=== PATIENT | male | born 1965 | race Asian ===

== ENCOUNTER 2019-04-01 08:19 | Inpatient (IN) | payer OTHER ==
[2019-04-01] VITALS (33 sets, daily range): BP systolic 81–111; BP diastolic 44–95
[~2019-04-01] VITALS: Ht 172.7 cm; Wt 73.2 kg
--- NOTE | 2019-04-01 08:20 | NUR ---
ED Nurse Note: pt was brought in by ambulance from [facility] c/o cp started 2-3 days ago but worse today. pt is aox4, aspirin was given on the scene. pt stated he is having chest pain but unable to stated which part of his chest is hurting and it is sharp and stated that he can eat because he has chest pain when he coughs. pt noted to have low bp, bp 82/61 upon arrival. pt has bajwa catheter to UB with cloudy urine output. pt has ongoing ivf with g 20 on the right forearm. pt seen by rosa. will continue to monitor.
[2019-04-01] MEDS ORDERED: MULTIVITAMINS1 EAC8 ORAL (08:30)
[2019-04-01] MEDS ORDERED: NEXIUM40 MG ORAL (08:30)
[2019-04-01] MEDS ORDERED: FOLIC ACID1 M1 PO (08:30)
--- NOTE | 2019-04-01 08:40 | NUR ---
NURSE NOTES:WOUND CARE NOTES:Pt presented on admission with multiple pressure injuries. Partially opened DTPI noted to sacrum (L)7cm x (W)7cm. Base of wound dark and indurated with small open wound at sacrococcygeal measuring (L)0.4 x(W)0.5cm x (D)0.3cm.wound is viable and moist with macerated edges with surrounding darkand indurated wound bed. Pt verbalized area is tender when palpated. DTPI noted to R lateral m,alleolus.Base of wound maroon with dark indurated borders (L)0.9cm x (W)0.6cm DTPI noted to lateral R heel. Base of wound is maroon with fluctuance. (L)1.2cm x (W)1.5cm. Dark brown discoloration without induration/erythema noted to distal/lateral R foot (L)3cm x (W)1.5cm. Non-tender when palpated. L heel callused but blanchable. Py also noted to have scattered hyperpigmented blotches on both lower ext. Tx.Plan: Cleanse Sacral area with Saline. Apply Hydrogel to coccygeal wound. Apply Moisture Barrier Paste periwound DTPI. Cover with Optifoam drsg. Change every 3 days and prn. Apply Cavilon Skin Barrier to R malleolus,Lateral R heel,Lateral/distal R foot. Cover each site with Optifoam drsgs. Change every 7 days and prn. APM/ADAM mattress overlay. Reposition at least every 2hours or as tolerated. Off-load heels with pillow.
[2019-04-01 08:52] LABS: APPEARANCE,URINE CLOUDY; BILIRUBIN, URINE NEGATIVE (NEGATIVE); GLUCOSE, URINE (UA) NEGATIVE (NEGATIVE); HEMATOCRIT 20.4 % (42.0-52.0); KETONES,URINE NEGATIVE (NEGATIVE); LEUKOCYTE ESTERASE ,URINE 3+ (NEGATIVE); MEAN CORPUSCULAR VOLUME 90 FL (80-99); NITRITE,URINE NEGATIVE (NEGATIVE); PH,URINE 7 (4.5-8.0); PLATELET COUNT 401 K/UL (150-450); PROTEIN,URINE 4+ (NEGATIVE); RED BLOOD COUNT 2.26 M/UL (4.70-6.10); UROBILINOGEN,URINE NORMAL MG/DL (0.0-1.0); WHITE BLOOD COUNT 15.9 K/UL (4.8-10.8)
[2019-04-01 08:55] LABS: HEMOGLOBIN 6.8 G/DL (14.2-18.0)
[2019-04-01 08:58] LABS: ANION GAP 15 mmol/L (5-15); BLOOD UREA NITROGEN 57 mg/dL (7-18); CALCIUM 7.7 MG/DL (8.5-10.1); CARBON DIOXIDE 17 MMOL/L (21-32); CHLORIDE 111 MMOL/L (98-107); CREATININE 3.1 MG/DL (0.55-1.30); POTASSIUM 4.2 MMOL/L (3.5-5.1); SODIUM 143 MMOL/L (136-145)
--- NOTE | 2019-04-01 09:00 | Emergency Room Report ---
History of Present Illness General Chief Complaint: Chest Pain Source: Patient, Medical Record, EMS Present Illness HPI Patient is sent in by paramedics from nursing facility with reports of chest pain Patient reports cough as well Patient has multiple comorbidities including significant previous CVA Renal disease anemia Patient complains of upper mid chest pain history is somewhat limited as patient is somewhat of a poor historian denies any vomiting or diarrhea Patient also presents with a Noriega catheter in place Unknown regarding fevers at the facility Allergies: Coded Allergies: No Known Allergies (Unverified , 04/01/19) Patient History Limited by: medical condition Past Medical History: see triage record Pertinent Family History: unable to obtain Reviewed Nursing Documentation: PMH: Agreed; PSxH: Agreed Nursing Documentation-PMH Hx Cardiac Problems: Yes - CEREBRAL INFARCTION Hx Hypertension: Yes Hx Diabetes: Yes - TYPE 2, HYPOMAGNESIA 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 Review of Systems All Other Systems: limited - Other than the ones mentioned in the history of present illness all others are reviewed however they do stay limited due to the patient's mental status Physical Exam Vital Signs Date Time Temp Pulse Resp B/P (MAP) Pulse Ox O2 Delivery O2 Flow Rate FiO2 04/01/19 08:13 98.6 68 20 82/61 (68) 93 Room Air Sp02 EP Interpretation: reviewed, normal General Appearance: mild distress - Appears agitated Head: normocephalic, atraumatic Eyes: bilateral eye PERRL, bilateral eye EOMI ENT: dry mucus membranes Neck: supple Respiratory: no accessory muscle use, other - Mildly tachypneic with crackles bilaterally Cardiovascular #1: regular rate, rhythm Gastrointestinal: non tender, soft Musculoskeletal: other - Chronic deficits sensory intact Neurologic: responsive - To physical stimuli, eyes open verbal Skin: no rash Lymphatic: no adenopathy Procedures Critical Care Time Critical Care Time 70 minutes for multiple re-evaluations, presentation of septic shock with concern for possible not including any procedural time Central Line Central Line : Consent: Emergent Central Line Lumen: triple Maximal Sterile Barrier Tech: yes cap, yes mask, yes sterile gown, yes sterile gloves, yes large sterile sheet, yes hand hygiene, yes chlorhexidine prep Central Line Postion: femoral (R) Anesthesia: Lidocaine cc's of anesthesia: 4 Complications: none Central Line Post Position: sutured Attempts: One Patient Tolerated: Well Complications: None Medical Decision Making Diagnostic Impression: Primary Impression: Septic shock Additional Impressions: CHF (congestive heart failure) Anemia ER Course Patient is a fairly complex patient with multiple differential to consideration including but not limited to cardiac cardiopulmonary and vascular emergencies Infectious pathology also entertained Patient complex case with evidence of some CHF finding however also severe sepsis and septic shock Also signs of significant anemia After initial fluid boluses patient required pressors And requires central line placement BiPAP has been placed and patient doing significantly better with this At this time patient does not require airway intubation however this is being monitored closely Patient initiated on broad-spectrum antibiotics Noriega catheter is also replaced and patient admitted to ICU for further intensive care Labs Test 04/01/19 08:20 04/01/19 08:39 White Blood Count 15.9 K/UL (4.8-10.8) Red Blood Count 2.26 M/UL (4.70-6.10) Hemoglobin 6.8 G/DL (14.2-18.0) Hematocrit 20.4 % (42.0-52.0) Mean Corpuscular Volume 90 FL (80-99) Mean Corpuscular Hemoglobin 30.3 PG (27.0-31.0) Mean Corpuscular Hemoglobin Concent 33.6 G/DL (32.0-36.0) Red Cell Distribution Width 12.0 % (11.6-14.8) Platelet Count 401 K/UL (150-450) Mean Platelet Volume 5.8 FL (6.5-10.1) Neutrophils (%) (Auto) % (45.0-75.0) Lymphocytes (%) (Auto) % (20.0-45.0) Monocytes (%) (Auto) % (1.0-10.0) Eosinophils (%) (Auto) % (0.0-3.0) Basophils (%) (Auto) % (0.0-2.0) Differential Total Cells Counted 100 Neutrophils % (Manual) 89 % (45-75) Lymphocytes % (Manual) 8 % (20-45) Monocytes % (Manual) 3 % (1-10) Eosinophils % (Manual) 0 % (0-3) Basophils % (Manual) 0 % (0-2) Band Neutrophils 0 % (0-8) Platelet Estimate Adequate Platelet Morphology Normal Schistocytes 1+ Urine Color Yellow Urine Appearance Cloudy Urine pH 7 (4.5-8.0) Urine Specific [place] 1.010 (1.005-1.035) Urine Protein 4+ (NEGATIVE) Urine Glucose (UA) Negative (NEGATIVE) Urine Ketones Negative (NEGATIVE) Urine Blood 1+ (NEGATIVE) Urine Nitrite Negative (NEGATIVE) Urine Bilirubin Negative (NEGATIVE) Urine Urobilinogen Normal MG/DL (0.0-1.0) Urine Leukocyte Esterase 3+ (NEGATIVE) Urine RBC 2-4 /HPF (0 - 0) Urine WBC Tntc /HPF (0 - 0) Urine Squamous Epithelial Cells Occasional /LPF Urine Bacteria Many /HPF (NONE) Sodium Level 143 MMOL/L (136-145) Potassium Level 4.2 MMOL/L (3.5-5.1) Chloride Level 111 MMOL/L (98-107) Carbon Dioxide Level 17 MMOL/L (21-32) Anion Gap 15 mmol/L (5-15) Blood Urea Nitrogen 57 mg/dL (7-18) Creatinine 3.1 MG/DL (0.55-1.30) Estimat Glomerular Filtration Rate 21.3 mL/min (>60) Glucose Level 98 MG/DL (74-106) Lactic Acid Level 1.40 mmol/L (0.4-2.0) Calcium Level 7.7 MG/DL (8.5-10.1) Total Bilirubin 0.4 MG/DL (0.2-1.0) Aspartate Amino Transf (AST/SGOT) 18 U/L (15-37) Alanine Aminotransferase (ALT/SGPT) 32 U/L (12-78) Alkaline Phosphatase 110 U/L (46-116) Total Creatine Kinase 96 U/L (26-308) Creatine Kinase MB 1.8 NG/ML (0.0-3.6) Creatine Kinase MB Relative Index 1.8 Troponin I 0.121 ng/mL (0.000-0.056) Pro-B-Type Natriuretic Peptide 13035 pg/mL (0-125) Total Protein 5.7 G/DL (6.4-8.2) Albumin 2.2 G/DL (3.4-5.0) Globulin 3.5 g/dL Albumin/Globulin Ratio 0.6 (1.0-2.7) Lipase 366 U/L (73-393) Arterial Blood pH 7.369 (7.350-7.450) Arterial Blood Partial Pressure CO2 25.3 mmHg (35.0-45.0) Arterial Blood Partial Pressure O2 103.7 mmHg (75.0-100.0) Arterial Blood HCO3 14.3 mmol/L (22.0-26.0) Arterial Blood Oxygen Saturation 96.4 % (95-100) Arterial Blood Base Excess -10.0 (-2-2) Kin Test Positive EKG Diagnostic Results Rate: normal Rhythm: NSR ST Segments: other - Nonspecific ST T wave changes Rhythm Strip Diag. Results EP Interpretation: yes Rate: 99 Rhythm: NSR, no PVC's, no ectopy Chest X-Ray Diagnostic Results Chest X-Ray Diagnostic Results : Chest X-Ray Ordered: Yes # of Views/Limited/Complete: 1 View Indication: Chest Pain EP Interpretation: Yes Interpretation: no consolidation, no pneumothorax, other - Sided effusion mild congestion Impression: Other - Left-sided effusion mild congestion Last Vital Signs Date Time Temp Pulse Resp B/P (MAP) Pulse Ox O2 Delivery O2 Flow Rate FiO2 04/01/19 08:13 98.6 68 20 82/61 (68) 93 Room Air Status: improved Disposition: ADMITTED INPATIENT Condition: Critical Referrals: Wilder Hunter MD (PCP) Quang Cruz DO Apr 01, 2019 09:00
[2019-04-01 09:01] LABS: COLOR,URINE YELLOW
--- NOTE | 2019-04-01 09:03 | NUR ---
ED Nurse Note: marine technician on bedside
[2019-04-01] MEDS ORDERED: ATORVASTATIN CA20 MG ORAL (09:08)
[2019-04-01] MEDS ORDERED: NORMODYNE100 MG ORAL (09:08)
[2019-04-01] MEDS ORDERED: ACIDOPHILUS1 EAC7 PO (09:08)
[2019-04-01] MEDS ORDERED: FERROUS SULFAT325 MG ORAL (09:08)
[2019-04-01] MEDS ORDERED: APRESOLINE10 MG ORAL (09:08)
[2019-04-01] MEDS ORDERED: ASPIR 8181 MG ORAL (09:08)
[2019-04-01] MEDS ORDERED: PROCARDIA XL30 MG ORAL (09:08)
[2019-04-01] MEDS ORDERED: HUMALOG100 UNIT/4 SUBQ (09:08)
[2019-04-01] MEDS ORDERED: VITAMIN C500 M1 ORAL (09:08)
[2019-04-01 09:15] LABS: ALANINE AMINOTRANSFERASE 32 U/L (12-78); ALBUMIN 2.2 G/DL (3.4-5.0); ALBUMIN/GLOBULIN RATIO 0.6 (1.0-2.7); ALKALINE PHOSPHATASE 110 U/L (46-116); ASPARTATE AMINO TRANSFERASE 18 U/L (15-37); BILIRUBIN,TOTAL 0.4 MG/DL (0.2-1.0); CKMB 1.8 NG/ML (0.0-3.6); CREATINE KINASE 96 U/L (26-308)
[2019-04-01] MEDS ORDERED: cefTRIAXone 1 GM in NS 55 ML IVPB ONE (09:30)
[2019-04-01] MEDS ORDERED: Vancomycin 1 GM in NS 275 ML IVPB ONE (09:30)
--- NOTE | 2019-04-01 09:35 | NUR ---
ED Nurse Note: respiratory therapist on bedside placing pt on bipap
--- NOTE | 2019-04-01 09:55 | NUR ---
ED Nurse Note: ermd no bedside doing a central line insertion on pt, central line placed on pt right femural vein. pt able to tolerate. will continue to monitor.
[2019-04-01] MEDS ORDERED: DOPamine 400mg/250ml 250 ML IV ONE (10:00)
--- NOTE | 2019-04-01 10:00 | NUR ---
ED Nurse Note: recieved a verbal order from ermd to titrate ivf from bolus to 300mL/hr and carried out
--- NOTE | 2019-04-01 10:27 | NUR ---
ED Nurse Note: dopamine connected to central line and started 2mcg/kg/hr with the rate of 5.27mL/hr pt bp is 82/56..
--- NOTE | 2019-04-01 10:42 | NUR ---
ED Nurse Note: pt bp is 79/48, dopamine titrated to 4mcg/kg/hr with rate of 10.54mL/hr
--- NOTE | 2019-04-01 10:57 | NUR ---
ED Nurse Note: pt bp 67/45, dopamine titrated to 6mcg/kg/hr, will continue to monitor.
--- NOTE | 2019-04-01 11:00 | NUR ---
ED Nurse Note: prbc picked up in the lab.
--- NOTE | 2019-04-01 11:05 | NUR ---
ED Nurse Note: blood transfusion started with vs within normal limit.
--- NOTE | 2019-04-01 11:12 | NUR ---
ED Nurse Note: pt bp is 78/51 dopamine titrated to 8mcg/kg/min with the rate of 21.09mL/hr. will continue to monitor.
--- NOTE | 2019-04-01 11:20 | NUR ---
ED Nurse Note: no blood transfusion reaction noted, blood transfusion titrated to 150mL/hour. pt vs within normal limit
--- NOTE | 2019-04-01 11:27 | NUR ---
ED Nurse Note: pt bp is 89/62, dopamine titrated to 10mcg/kg/hr with rate of 26.36mL/hr. will continue to monitor.
--- NOTE | 2019-04-01 11:31 | NUR ---
ED Nurse Note: with new order from ermd, lasix iv given as ordered
--- NOTE | 2019-04-01 11:42 | NUR ---
ED Nurse Note: pt bp is 82/46, dopamine titrated to 12mcg/kg/hr, will continue to monitor
--- NOTE | 2019-04-01 11:57 | NUR ---
ED Nurse Note: pt bp is 103/57. dopamine maintained to 12mcg/hr/kr.
--- NOTE | 2019-04-01 12:00 | NUR ---
ED Nurse Note: pt is admitted to the hospital. report given to Faith TEIXEIRA.
--- NOTE | 2019-04-01 12:18 | Diagnostic Imaging Report ---
Indication: Dyspnea Comparison: None A single view chest radiograph was obtained. Findings: There is evidence of a left pleural effusion with blunting of the costophrenic angle. There is a hazy opacity in the left perihilar region. Generalized vascular prominence noted. Heart is enlarged. Bones are osteopenic. IMPRESSION: Suspicion of a small left pleural effusion. Some evidence of mild CHF. Correlate clinically
--- NOTE | 2019-04-01 12:20 | NUR ---
NURSE NOTES: Received patient from LLUVIA Carrera. Patient blood pressure 86/44 on 12mcg/kg/min of dopamine. Increased to 14mcg/kg/min at this time. Patient on BiPAP 09/12 with 40% FiO2. Patient ABG abnormal in ER. Patient oxygen saturation 100% at this time. Patient denies chest pain at this time. Patient temperature 95.[address] bear hugger on the patient. Patient alert and oriented to person, place, time, and date. Patient drowsy and reports double vision, nausea, and heartburn. Will administer anti-nausea medication when possible. Patient has right femoral triple lumen catheter inserted in ER. Dressing to be changed tonight. Patient getting one PRBC at this time due to Hgb of 6.8 this morning. Will follow up with admitting physician for further blood transfusion orders. Patient is NPO at this time. Awaiting orders. Patient has a sacral small pressure ulcer, left high DTI, right heel/hallux/ankle DTIs. Patient also has small brown scars on bilateral lower extremities and abdomen. Patient has 4/5 strength in bilateral arms and legs but states that he cannot walk. Patient has a bajwa for retention from long term. When asked why he has the bajwa, he states that he wants to keep it. Order will be obtained to replace with new bajwa. patient bed in low position with bed alarm on.
--- NOTE | 2019-04-01 12:20 | NUR ---
ED Nurse Note: pt transfered to icu 246 J accompanied by rn, carpenter railcar and rt.
--- NOTE | 2019-04-01 13:16 | NUR ---
NURSE NOTES: Left message for Dr Hunter to obtain admission orders.
--- NOTE | 2019-04-01 14:30 | NUR ---
NURSE NOTES: Patient temperature still low at 95.6. Patient has bear hugger at this time. Patient vomiting up brown emesis with blood clots and coffee grounds. Patient reports nausea and heartburn. Will administer medication when possible. Patient on Dopamine 16mcg/kg/min with blood pressure 97/57. Patient bed changed at this time due to vomit on the sheets. patient repositioned. Patient given ice chips and small amount of water to rinse his mouth. Will continue to titrate dopamine drip and monitor blood pressure.
[2019-04-01] MEDS ORDERED: Heparin1,000 units/500ml Premix(Conc:2 units/ml) IV PRN (15:45)
[2019-04-01] MEDS ORDERED: Lidocaine 1% Plain 30 ml INJ PRN (15:45)
--- NOTE | 2019-04-01 16:30 | NUR ---
NURSE NOTES: Patient temperature still low at 96.0. Patient has bear hugger at this time. Patient still vomiting up brown emesis with blood clots and coffee grounds. Patient still reports nausea. Patient no longer on dopamine drip. Patient blood pressure 110/69. Patient has an order for Levophed but it will be held until patient has need of it. Patient bed changed at this time due to vomit on the sheets. patient repositioned. Patient given ice chips and small amount of water to rinse his mouth. Will continue to monitor blood pressure.
--- NOTE | 2019-04-01 18:30 | NUR ---
NURSE NOTES: second PRBC started. Blood pressure 97/47, temp 97.4, HR 74, oxygen saturation 100% on 2L NC. Patient still vomiting blood tinged emesis with blood clots.
--- NOTE | 2019-04-01 18:45 | NUR ---
NURSE NOTES: Patient's blood transfusion has reached 15 min. Blood pressure 100/54, temp 97.5, HR 73, and oxygen saturation 100%. Noriega changed and patient repositioned and cleaned at this time.
--- NOTE | 2019-04-01 19:08 | NUR ---
CASE MANAGEMENT: REVIEW SI: SEPSIS . RESP FAILURE . BILATERAL INFILTRATES . ARDS FLEXIBLE FIBEROPTIC BRONCHOSCOPY AND BRONCHOALVEOLAR LAVAGE 03/29 T 97.0 HR 70 RR 24 BP 89/62 SAT 100% BIPAP FIO2 40 WBC 15.9 H/H 6.8/20.4 TROPONIN I 0.121 BNP 18728 IS: LEVOPHED GTT NS IVF @100ML/HR ZOSYN IV Q8HR ICU STATUS DCP: PATIENT IS FROM [facility] Addendum: 04/03/19 at 1707 by Meghana Goode LVN MET INTERQUAL CRITERIA
--- NOTE | 2019-04-01 19:20 | NUR ---
HAND-OFF: Report given to LLUVIA Canela. Patient continues to vomit brown emesis with coffee grounds and blood clots. Patient has zofrderek BOOTHEN. Endorsed to follow up. Patient blood transfusion running at 150mL/hr at this time. Patient tolerating with no evidence of transfusion reaction. patient has an order for another unit. Endorsed to follow up.
[2019-04-01] MEDS: Piperacillin/Tazobactam 3.375 GM in NS 110 ML IVPB SCH (20:00)
[2019-04-01] MEDS: Dyna-Hex 2% Top Sol 2oz TOPIC SCH (20:00)
[2019-04-01] MEDS ORDERED: Dyna-Hex 2% Top Sol 2oz TOPIC SCH (20:00)
--- NOTE | 2019-04-01 20:00 | NUR ---
5NURSE NOTES: ptAWAKE AND ALERT ORIENTED MOVE ALL EXTRIMETIES C/O N/V SUCTION AND REPOSITION
[2019-04-01] MEDS ORDERED: Albuterol ud Inhalation HHN PRN ×2 (21:15→21:30)
--- NOTE | 2019-04-01 22:00 | NUR ---
NURSE NOTES: SLEEPIING AT INTREVAL IV INFUSING WELL DRESING DRY AND INTACT
--- NOTE | 2019-04-01 22:15 | History and Physical Report ---
DATE OF ADMISSION: 04/01/2019 REASON FOR ADMISSION: Sepsis. HISTORY OF PRESENT ILLNESS: This is a 53-year-old male brought in by paramedics due to chest pain. The patient was noted to be hypotensive and requiring pressors. The patient is seen and evaluated in the emergency room, noted to have leukocytosis and profound anemia. The patient is now admitted to the intensive care unit. The patient is seen earlier today and noted to have some proteinuria, blood in the urine, and ojg-bpmgzjfg-vi-count white cells. The patient also with elevated BUN, creatinine. The patient's care discussed and reviewed. The patient is unable to give much in the way of history at this time. 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 MEDICATIONS: Reviewed. PHYSICAL EXAMINATION: GENERAL: The patient is an ill-appearing male, currently hypotensive. VITAL SIGNS: Blood pressure 103/57, temperature 97, heart rate 70, and respiratory rate 24. The patient is placed on BiPAP, but now stable off. HEENT: Negative. NECK: Supple. No adenopathy. LUNGS: Moderate breath sounds. CARDIAC: S1, S2. Regular rate and rhythm. ABDOMEN: Soft. EXTREMITIES: No edema. LABORATORY DATA: Reviewed. Hemoglobin 6.8 and white count 13.9. Blood gases, 7.36, 25, 103. Bicarbonate is 14. Sodium 143, BUN 57, and creatinine 3.1. Troponin 0.121. Albumin is 2.2. IMPRESSION: 1. Acute on chronic renal failure. 2. Hypotension. 3. Septic shock. 4. Chest pain. 5. Elevated troponin. 6. Profound anemia. 7. Possible gastrointestinal bleed. 8. History of hypertension, now hypotensive. RECOMMENDATIONS: 1. Supportive care. 2. Hold all antihypertensives. 3. Levophed as needed. 4. Transfuse. 5. Intravenous antibiotics empirically. 6. ID, cardiology and Renal evaluation to follow. 7. Monitor clinically in the intensive care unit and update family members. Wilder Hunter M.D. DR: MICHELLE JOB#: [id number] CC:
[2019-04-02] VITALS (24 sets, daily range): BP systolic 99–187; BP diastolic 42–90
--- NOTE | 2019-04-02 | NUR ---
NURSE NOTES: COMPLETE BED ORAL CARE AND BACK CARE
--- NOTE | 2019-04-02 | NUR ---
NURSE NOTES: COMPLETE BED BATH ORAL CARE BACK CARE
--- NOTE | 2019-04-02 02:00 | NUR ---
NURSE NOTES: TOLERAT ASLEEP HAD TOTAL 3 UNIT PRBC TRANFUSE TOLERATED WELL NO REACTION
--- NOTE | 2019-04-02 02:00 | NUR ---
NURSE NOTES: DR FAUST IN SEEN PT
[2019-04-02] MEDS: Piperacillin/Tazobactam 3.375 GM in NS 110 ML IVPB SCH ×2 (03:40→16:44)
[2019-04-02 05:40] LABS: HEMATOCRIT 31.1 % (42.0-52.0); HEMOGLOBIN 10.5 G/DL (14.2-18.0); MEAN CORPUSCULAR VOLUME 89 FL (80-99); PLATELET COUNT 424 K/UL (150-450); RED CELL DISTRIBUTION WIDTH 12.8 % (11.6-14.8)
[2019-04-02 05:59] LABS: ANION GAP 19 mmol/L (5-15); BLOOD UREA NITROGEN 73 mg/dL (7-18); CALCIUM 8.2 MG/DL (8.5-10.1); CARBON DIOXIDE 15 MMOL/L (21-32); CHLORIDE 118 MMOL/L (98-107); CREATININE 3.3 MG/DL (0.55-1.30); POTASSIUM 4.2 MMOL/L (3.5-5.1); SODIUM 152 MMOL/L (136-145)
--- NOTE | 2019-04-02 06:21 | NUR ---
NURSE NOTES: COMPLETE BED BATH
--- NOTE | 2019-04-02 07:32 | NUR ---
HAND-OFF: Report given to gale rd using sbar.
--- NOTE | 2019-04-02 07:32 | NUR ---
NURSE NOTES: Received report from LLUVIA palacio. patient sleeping. Patient arousable to name and shaking. Patient alert and oriented to place, time, date, and purpose. Patient still experiencing nausea and heartburn. Will administer nausea PRN medication as needed. Patient blood pressure 151/69, temp 98.4, SpO2 99%, HR 89, and RR 18. Patient dry heaving but is unable to produce bile. Patient on 2L NC with SpO2 of 99%. Patient has saturation of 90-93% without nasal cannula. Patient removes the nasal cannula when he is heaving. Patient is NPO at this time except medication and ice chips. Patient has a bajwa for urine retention. Bajwa was inserted prior to admission and replaced yesterday. Patient has steady urine output with straw yellow urine with no sediment. Patient has sacral small stage 3, left hip DTI, right lateral ankle, toe, and heel DTI. Patient has left femoral triple lumen catheter that is patent, asymptomatic, and dressing changed last night. Patient running NS at 100mL/hr at this time. Will follow up with antinausea medication. Patient bed in low position with bed alarm on.
--- NOTE | 2019-04-02 08:00 | General Progress Note ---
Assessment/Plan Assessment/Plan: GI CONSULT Assessment - UGIB (but stools brown, not melena) - N/V, Hiccups - suspect GERD - Anemia, s/p transfusion - CP, mild elevation in troponin - Azotemia Recommendation - Keep NPO until dry heaves resolves - BID PPI - PRN zofran - Monitor CBC - transfuse PRN - EGD once cleared from cardiology standpoint Thank you Arlet Rubio MD Subjective Allergies: Coded Allergies: No Known Allergies (Unverified , 04/01/19) Objective Last 24 Hour Vital Signs Date Time Temp Pulse Resp B/P (MAP) Pulse Ox O2 Delivery O2 Flow Rate FiO2 04/02/19 06:00 86 23 142/66 (91) 94 04/02/19 05:00 83 23 125/46 (72) 94 04/02/19 04:00 Nasal Cannula 2.0 04/02/19 04:00 2.0 04/02/19 04:00 87 04/02/19 04:00 98.6 83 23 99/54 (69) 94 04/02/19 03:00 85 23 119/54 (75) 94 04/02/19 02:00 83 23 123/85 (98) 94 04/02/19 01:00 75 18 105/59 (74) 94 04/02/19 00:00 2.0 04/02/19 00:00 87 04/02/19 00:00 98.5 79 16 99/42 (61) 94 04/02/19 00:00 Nasal Cannula 2.0 04/01/19 23:00 75 23 99/54 (69) 94 04/01/19 22:00 75 23 97/64 (75) 94 04/01/19 21:00 75 23 95/51 (66) 94 04/01/19 20:00 Nasal Cannula 2.0 04/01/19 20:00 2.0 04/01/19 20:00 98.8 71 23 104/52 (69) 94 04/01/19 19:58 96 Nasal Cannula 2.0 28 04/01/19 19:30 96 2.0 28 04/01/19 19:00 74 23 89/52 (64) 94 04/01/19 18:45 74 20 81/55 (64) 95 04/01/19 18:30 75 21 100/54 (69) 96 04/01/19 18:15 75 18 97/47 (64) 96 04/01/19 18:00 76 14 101/51 (68) 97 04/01/19 17:45 80 20 101/58 (72) 95 04/01/19 17:30 88 17 105/65 (78) 95 04/01/19 17:15 87 20 111/95 (100) 96 04/01/19 17:10 98 04/01/19 17:00 111/95 04/01/19 17:00 87 17 104/57 (73) 96 04/01/19 16:45 86 17 104/57 (73) 98 04/01/19 16:30 85 20 110/69 (83) 97 04/01/19 16:15 85 23 92/62 (72) 97 04/01/19 16:00 97.4 84 18 106/54 (71) 97 04/01/19 16:00 87 04/01/19 16:00 2.0 04/01/19 16:00 Nasal Cannula 2.0 04/01/19 15:57 Bi-pap 04/01/19 15:45 85 21 99/51 (67) 98 04/01/19 15:30 86 20 105/50 (68) 99 04/01/19 15:20 97 04/01/19 15:15 85 17 97/57 (70) 98 04/01/19 15:00 84 18 97/57 (70) 98 04/01/19 14:45 84 20 97/57 (70) 98 04/01/19 14:30 84 19 97/57 (70) 98 04/01/19 14:15 83 22 95/51 (66) 98 04/01/19 14:00 83 21 97/44 (61) 96 04/01/19 13:45 83 23 94/72 (79) 100 04/01/19 13:30 83 19 103/55 (71) 100 04/01/19 13:15 82 18 89/55 (66) 100 04/01/19 13:00 81 17 100 Facial 40 04/01/19 13:00 80 16 86/44 (58) 100 04/01/19 12:45 94.4 79 22 86/44 (58) 100 04/01/19 12:35 80 04/01/19 12:20 97.0 70 24 103/57 100 Bi-pap 15.0 40 04/01/19 11:36 97.0 70 24 89/62 100 Bi-pap 40 04/01/19 11:25 64 25 100 Facial 40 04/01/19 10:42 79/48 04/01/19 10:27 62 15 82/56 100 Bi-pap 40 04/01/19 10:27 82/56 04/01/19 09:35 40 04/01/19 09:35 57 17 97 Facial 40 04/01/19 08:20 68 20 Room Air 04/01/19 08:20 98.6 68 20 82/61 100 Non-Rebreather 15.0 04/01/19 08:13 98.6 68 20 82/61 (68) 93 Room Air Intake and Output 04/01/19 04/02/19 19:00 07:00 Intake Total 2055 ml 2310.0 ml Output Total 1585 ml 1065 ml Balance 470 ml 1245.0 ml Intake IV Total 1905 ml 1560.0 ml Blood Product 150 ml 750 ml Output Urine Total 1585 ml 515 ml Emesis 550 ml # Bowel Movements 4 2 Laboratory Tests 04/01/19 08:20: White Blood Count 15.9H, Red Blood Count 2.26L, Hemoglobin 6.8*L, Hematocrit 20.4L, Mean Corpuscular Volume 90, Mean Corpuscular Hemoglobin 30.3, Mean Corpuscular Hemoglobin Concent 33.6, Red Cell Distribution Width 12.0, Platelet Count 401, Mean Platelet Volume 5.8L, Neutrophils (%) (Auto) , Lymphocytes (%) ( Auto) , Monocytes (%) (Auto) , Eosinophils (%) (Auto) , Basophils (%) (Auto) , Differential Total Cells Counted 100, Neutrophils % (Manual) 89H, Lymphocytes % (Manual) 8L, Monocytes % (Manual) 3, Eosinophils % (Manual) 0, Basophils % ( Manual) 0, Band Neutrophils 0, Platelet Estimate Adequate, Platelet Morphology Normal, Schistocytes 1+, Urine Color Yellow, Urine Appearance Cloudy, Urine pH 7 , Urine Specific [place] 1.010, Urine Protein 4+H, Urine Glucose (UA) Negative, Urine Ketones Negative, Urine Blood 1+H, Urine Nitrite Negative, Urine Bilirubin Negative, Urine Urobilinogen Normal, Urine Leukocyte Esterase 3+H, Urine RBC 2-4H, Urine WBC TntcH, Urine Squamous Epithelial Cells Occasional, Urine Bacteria ManyH, Sodium Level 143, Potassium Level 4.2, Chloride Level 111H , Carbon Dioxide Level 17L, Anion Gap 15, Blood Urea Nitrogen 57H, Creatinine 3.1H, Estimat Glomerular Filtration Rate 21.3, Glucose Level 98, Lactic Acid Level 1.40, Calcium Level 7.7L, Total Bilirubin 0.4, Aspartate Amino Transf (AST /SGOT) 18, Alanine Aminotransferase (ALT/SGPT) 32, Alkaline Phosphatase 110, Total Creatine Kinase 96, Creatine Kinase MB 1.8, Creatine Kinase MB Relative Index 1.8, Troponin I 0.121H, Pro-B-Type Natriuretic Peptide 59055E, Total Protein 5.7L, Albumin 2.2L, Globulin 3.5, Albumin/Globulin Ratio 0.6L, Lipase 366 04/01/19 08:39: Arterial Blood pH 7.369, Arterial Blood Partial Pressure CO2 25.3L, Arterial Blood Partial Pressure O2 103.7H, Arterial Blood HCO3 14.3*L, Arterial Blood Oxygen Saturation 96.4, Arterial Blood Base Excess -10.0*L, Kin Test Positive 04/02/19 05:00: White Blood Count 19.0H, Red Blood Count 3.50L, Hemoglobin 10.5#L, Hematocrit 31.1#L, Mean Corpuscular Volume 89, Mean Corpuscular Hemoglobin 30.1, Mean Corpuscular Hemoglobin Concent 33.9, Red Cell Distribution Width 12.8, Platelet Count 424, Mean Platelet Volume 5.6L, Neutrophils (%) (Auto) , Lymphocytes (%) ( Auto) , Monocytes (%) (Auto) , Eosinophils (%) (Auto) , Basophils (%) (Auto) , Neutrophils % (Manual) [Pending], Lymphocytes % (Manual) [Pending], Platelet Estimate [Pending], Platelet Morphology [Pending], Sodium Level 152H, Potassium Level 4.2, Chloride Level 118H, Carbon Dioxide Level 15L, Anion Gap 19H, Blood Urea Nitrogen 73H, Creatinine 3.3H, Estimat Glomerular Filtration Rate 19.8, Glucose Level 75, Calcium Level 8.2L, Troponin I 0.086H, Pro-B-Type Natriuretic Peptide 31641Z Height (Feet): 5 Height (Inches): 8.00 Weight (Pounds): 156 Arlet Rubio MD Apr 02, 2019 08:00
--- NOTE | 2019-04-02 08:10 | NUR ---
NURSE NOTES: Spoke with Dr Rubio regarding patient condition. He ordered occult blood stool. Specimen collected and labeled at this time. Notified him that patient has been vomiting brown tinged emesis with blood clots but is not having any obvious blood in the stool.
--- NOTE | 2019-04-02 08:32 | Critical Care Progress Note ---
Assessment/Plan Assessment/Plan IMPRESSION: 1. Acute on chronic renal failure. 2. Hypotension. 3. Septic shock. 4. Chest pain. 5. Elevated troponin. 6. Profound anemia. s/p transfusion 7. Possible gastrointestinal bleed. 8. History of hypertension, 9. protein calorie malnutrition PLAN HH improved gi noted await ID and renal evaluation hydration out of ICU now off pressors ? resume antihypertensives medications/laboratory data/nursing notes/ICU care reviewed in detail note reviewed and edited care discussed with RN and RT ICU time spent 40 minutes Critical Care - Subjective ROS Limited/Unobtainable: Yes Condition: critical I&O: Intake and Output 04/01/19 04/02/19 19:00 07:00 Intake Total 2055 ml 2310.0 ml Output Total 1585 ml 1165 ml Balance 470 ml 1145.0 ml Intake IV Total 1905 ml 1560.0 ml Blood Product 150 ml 750 ml Output Urine Total 1585 ml 615 ml Emesis 550 ml # Bowel Movements 4 2 Critical Care - Objective Last 24 Hour Vital Signs Date Time Temp Pulse Resp B/P (MAP) Pulse Ox O2 Delivery O2 Flow Rate FiO2 04/02/19 08:00 2.0 04/02/19 08:00 98.4 88 31 145/79 (101) 94 04/02/19 08:00 Nasal Cannula 2.0 04/02/19 07:00 89 18 151/69 (96) 94 04/02/19 06:00 86 23 142/66 (91) 94 04/02/19 05:00 83 23 125/46 (72) 94 04/02/19 04:00 Nasal Cannula 2.0 04/02/19 04:00 2.0 04/02/19 04:00 87 04/02/19 04:00 98.6 83 23 99/54 (69) 94 04/02/19 03:00 85 23 119/54 (75) 94 04/02/19 02:00 83 23 123/85 (98) 94 04/02/19 01:00 75 18 105/59 (74) 94 04/02/19 00:00 2.0 04/02/19 00:00 87 04/02/19 00:00 98.5 79 16 99/42 (61) 94 04/02/19 00:00 Nasal Cannula 2.0 04/01/19 23:00 75 23 99/54 (69) 94 04/01/19 22:00 75 23 97/64 (75) 94 04/01/19 21:00 75 23 95/51 (66) 94 04/01/19 20:00 Nasal Cannula 2.0 04/01/19 20:00 2.0 04/01/19 20:00 98.8 71 23 104/52 (69) 94 04/01/19 19:58 96 Nasal Cannula 2.0 28 04/01/19 19:30 96 2.0 28 04/01/19 19:00 74 23 89/52 (64) 94 04/01/19 18:45 74 20 81/55 (64) 95 04/01/19 18:30 75 21 100/54 (69) 96 04/01/19 18:15 75 18 97/47 (64) 96 04/01/19 18:00 76 14 101/51 (68) 97 04/01/19 17:45 80 20 101/58 (72) 95 04/01/19 17:30 88 17 105/65 (78) 95 04/01/19 17:15 87 20 111/95 (100) 96 04/01/19 17:10 98 04/01/19 17:00 111/95 04/01/19 17:00 87 17 104/57 (73) 96 04/01/19 16:45 86 17 104/57 (73) 98 04/01/19 16:30 85 20 110/69 (83) 97 04/01/19 16:15 85 23 92/62 (72) 97 04/01/19 16:00 97.4 84 18 106/54 (71) 97 04/01/19 16:00 87 04/01/19 16:00 2.0 04/01/19 16:00 Nasal Cannula 2.0 04/01/19 15:57 Bi-pap 04/01/19 15:45 85 21 99/51 (67) 98 04/01/19 15:30 86 20 105/50 (68) 99 04/01/19 15:20 97 04/01/19 15:15 85 17 97/57 (70) 98 04/01/19 15:00 84 18 97/57 (70) 98 04/01/19 14:45 84 20 97/57 (70) 98 04/01/19 14:30 84 19 97/57 (70) 98 04/01/19 14:15 83 22 95/51 (66) 98 04/01/19 14:00 83 21 97/44 (61) 96 04/01/19 13:45 83 23 94/72 (79) 100 04/01/19 13:30 83 19 103/55 (71) 100 04/01/19 13:15 82 18 89/55 (66) 100 04/01/19 13:00 81 17 100 Facial 40 04/01/19 13:00 80 16 86/44 (58) 100 04/01/19 12:45 94.4 79 22 86/44 (58) 100 04/01/19 12:35 80 04/01/19 12:20 97.0 70 24 103/57 100 Bi-pap 15.0 40 04/01/19 11:36 97.0 70 24 89/62 100 Bi-pap 40 04/01/19 11:25 64 25 100 Facial 40 04/01/19 10:42 79/48 04/01/19 10:27 62 15 82/56 100 Bi-pap 40 04/01/19 10:27 82/56 04/01/19 09:35 40 04/01/19 09:35 57 17 97 Facial 40 Labs: Laboratory Tests Test 04/01/19 08:39 04/02/19 05:00 Arterial Blood pH 7.369 (7.350-7.450) Arterial Blood Partial Pressure CO2 25.3 mmHg (35.0-45.0) L Arterial Blood Partial Pressure O2 103.7 mmHg (75.0-100.0) H Arterial Blood HCO3 14.3 mmol/L (22.0-26.0) *L Arterial Blood Oxygen Saturation 96.4 % (95-100) Arterial Blood Base Excess -10.0 (-2-2) *L Kin Test Positive White Blood Count 19.0 K/UL (4.8-10.8) H Red Blood Count 3.50 M/UL (4.70-6.10) L Hemoglobin 10.5 G/DL (14.2-18.0) #L Hematocrit 31.1 % (42.0-52.0) #L Mean Corpuscular Volume 89 FL (80-99) Mean Corpuscular Hemoglobin 30.1 PG (27.0-31.0) Mean Corpuscular Hemoglobin Concent 33.9 G/DL (32.0-36.0) Red Cell Distribution Width 12.8 % (11.6-14.8) Platelet Count 424 K/UL (150-450) Mean Platelet Volume 5.6 FL (6.5-10.1) L Neutrophils (%) (Auto) % (45.0-75.0) Lymphocytes (%) (Auto) % (20.0-45.0) Monocytes (%) (Auto) % (1.0-10.0) Eosinophils (%) (Auto) % (0.0-3.0) Basophils (%) (Auto) % (0.0-2.0) Differential Total Cells Counted 100 Neutrophils % (Manual) 88 % (45-75) H Lymphocytes % (Manual) 5 % (20-45) L Monocytes % (Manual) 4 % (1-10) Eosinophils % (Manual) 0 % (0-3) Basophils % (Manual) 0 % (0-2) Band Neutrophils 3 % (0-8) Platelet Estimate Adequate Platelet Morphology Normal Acanthocytes 2+ Sodium Level 152 MMOL/L (136-145) H Potassium Level 4.2 MMOL/L (3.5-5.1) Chloride Level 118 MMOL/L (98-107) H Carbon Dioxide Level 15 MMOL/L (21-32) L Anion Gap 19 mmol/L (5-15) H Blood Urea Nitrogen 73 mg/dL (7-18) H Creatinine 3.3 MG/DL (0.55-1.30) H Estimat Glomerular Filtration Rate 19.8 mL/min (>60) Glucose Level 75 MG/DL (74-106) Calcium Level 8.2 MG/DL (8.5-10.1) L Troponin I 0.086 ng/mL (0.000-0.056) Pro-B-Type Natriuretic Peptide 12353 pg/mL (0-125) H Objective: HEENT: Negative. NECK: Supple. No adenopathy. LUNGS: Moderate breath sounds. CARDIAC: S1, S2. Regular rate and rhythm. ABDOMEN: Soft. EXTREMITIES: No edema. Micro: Microbiology Date/Time Source Procedure Growth Status 04/01/19 08:20 Urine,Clean Catch Urine Culture - Preliminary Resulted Wilder Hunter MD Apr 02, 2019 08:32
--- NOTE | 2019-04-02 09:30 | NUR ---
NURSE NOTES: Patient continues to dry heave at this time. Patient given zofran. Patient blood sugar checked at this time. It is 78. Patient remains NPO. Will ask MD if patient can be started on IV fluid with D5. Will continue to monitor. Patient blood pressure remains elevated. Patient restarted on home blood pressure medications this morning. Will monitor for effectiveness and administer as ordered.
[2019-04-02] MEDS: Labetalol 200mg tab ORAL SCH ×3 (09:42→18:07)
--- NOTE | 2019-04-02 10:45 | Consultation ---
DATE OF CONSULTATION: 04/02/2019 GASTROENTEROLOGY CONSULTATION CONSULTING PHYSICIAN: Arlet Rubio M.D. CHIEF COMPLAINT: I was asked to see this patient by Dr. Wilder Hunter for evaluation of anemia and vomiting. HISTORY OF PRESENT ILLNESS: The patient is a 53-year-old [place] man, who is somewhat of a poor historian, even through a Czech therapy assistant, who comes into the hospital due to chest pain and hypotension. He initially required pressors and was noted to be hypovolemic and severely anemic. He was transfused and given IV fluids and his blood pressure is now more stabilized. He is off of pressors and he is doing better. Nonetheless, he continues to have retching and hiccups and dry heaves. The patient states he has never had endoscopy or colonoscopy or history of ulcers. He states he has been fairly healthy and does not take aspirin or nonsteroidal anti-inflammatory drugs. His stools have not been noticed overnight, but yesterday in the evening he threw up some dark brown material with blood clots in it. 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 MEDICATIONS: Noted. FAMILY HISTORY: Noncontributory. SOCIAL HISTORY: The patient is single. He has no children and no family members close by or involved in his care. REVIEW OF SYSTEMS: Otherwise negative. PHYSICAL EXAMINATION: GENERAL: The well-developed, well-nourished Czech man, seen in the ICU with the Czech speaking nurse at the bedside. HEENT: Normocephalic and atraumatic. Dentition is poor. NECK: Supple. CHEST: Clear to auscultation. CARDIOVASCULAR: Revealed regular rate. ABDOMEN: Soft, nontender. EXTREMITIES: Revealed no edema. RECTAL: Revealed brown stool. LABORATORY DATA: Noted. ASSESSMENT: This patient presents with profound anemia with emesis containing blood seen by the nursing staff and therefore he clearly has a component of upper GI bleeding. He has frequent retching and dry heaves and hiccups and I suspect there is a significant component of gastroesophageal reflux disease. The patient should have an endoscopy to evaluate these possibilities and perhaps colonoscopy at a later date as an outpatient once he is stabilized. At this point, however, he has had some chest pain with some mild elevation in troponin and therefore he need proper cardiac evaluation and clearance prior to endoscopy. He does not have and therefore I will hold off on planning for his endoscopy until his cardiac evaluation is complete. In the meantime, he should receive twice daily proton-pump inhibitor and have his blood count monitored carefully. I will hold off on oral diet until his dry heaves has resolved. RECOMMENDATIONS: Per above discussion and per orders written in the chart. Thank you for asking me to participate in the care of this patient. Arlet Rubio M.D. DR: JOSEPH JOB#: [id number] CC:
--- NOTE | 2019-04-02 11:30 | NUR ---
NURSE NOTES: Patient sleeping at this time. Blood pressure remains elevated. Will continue to monitor and notify MD if high blood pressure persists. Will continue to monitor.
--- NOTE | 2019-04-02 11:32 | NUR ---
NURSE NOTES: Left message at Dr Rubio's office asking if the patient can be changed to clear liquid diet.
--- NOTE | 2019-04-02 11:45 | Consultation ---
Consult Note Consult Note asked by Dr Delgado to cover and do Renal consultation Seen In ICU examined Data reviewed Discussed with ASSISTANT TO THE CEO Note: Patient is sent in by paramedics from nursing facility with reports of chest pain Patient reports cough as well Patient has multiple comorbidities including significant previous CVA Renal disease anemia Patient complains of upper mid chest pain history is somewhat limited as patient is somewhat of a poor historian denies any vomiting or diarrhea Patient also presents with a Noriega catheter in place Unknown regarding fevers at the facility No Known Allergies (Unverified , 04/01/19) Hx Cardiac Problems: Yes - CEREBRAL INFARCTION Hx Hypertension: Yes Hx Diabetes: Yes - TYPE 2, HYPOMAGNESIA 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 . Assessment/Plan Renal failure: Likely Acute on Chronic Long history of IDDM Likely Diabetic Nephropathy, Proteinuria, HypoAlbuminemia HTN Anemia, GI bleed likely- s/p 3 units PRBCs transfusion UTI plan; Avoid nephrotoxics Adjust BP meds- Kidney GASTON- 2D Echo- PRN BP meds Urine studies adjust Zosyn dose for renal failure per orders Ismael Banegas MD Apr 02, 2019 11:45
--- NOTE | 2019-04-02 11:51 | NUR ---
*-* INSURANCE *-* ALL CLINICALS AND REVIEWS HAVE BEEN FAXED TO: MARY/BRYAN NO CHIEF TECHNICIAN X RAY ASSIGNED AT THIS TIME PLEASE FAX THE REVIEW/CLINICAL P- [phone] F- [phone]...REVIEW/CLINICAL
[2019-04-02] MEDS ORDERED: HydrALAZINE 50mg tab ORAL SCH (12:00)
[2019-04-02] MEDS: Sodium Citrate 30ml ORAL SCH ×3 (12:00→18:00)
[2019-04-02] MEDS: D5 1/2NS 1,000 ML IV SCH (13:00)
--- NOTE | 2019-04-02 13:30 | NUR ---
Patient continues to dry heave and occasionally vomit clear liquid. Will ask MD if zofran can be given Q4Hr as needed instead of every 6 hours. Blood pressure remains elevated. Will continue to monitor and notify MD if high blood pressure persists. Will continue to monitor.
--- NOTE | 2019-04-02 14:19 | Diagnostic Imaging Report ---
Indication:Elevated Bun and Creatinine. Technique: Grayscale and duplex Doppler imaging of the kidneys performed. Comparison: None Findings: The size, contour, and echogenicity of both kidneys are within normal limits. There is no hydronephrosis. IVC is patent. There is thickening of the wall the urinary bladder. Bilateral pleural effusions and trace ascites noted. Prostate is mildly enlarged with a volume of 42 cc. The right kidney measures 12.2 cm in length. Left kidney 11.4 cm. IMPRESSION: Thickening of the bladder wall. Consider mild cystitis. Correlate clinically. Bilateral pleural effusions Mild prostate hypertrophy
--- NOTE | 2019-04-02 14:30 | Consultation ---
DATE OF CONSULTATION: 04/02/2019 INFECTIOUS DISEASES CONSULTATION CONSULTING PHYSICIAN: Abbe Hernandez M.D. REFERRING PHYSICIAN: Wilder Hunter M.D. REASON FOR CONSULTATION: Sepsis syndrome. HISTORY OF PRESENTING ILLNESS: This is a 53-year-old gentleman with history of cerebral infarction, benign neoplasm of the right adrenal gland, hypertension, who comes in because of leukocytosis. He was found to be hypotensive and was started on pressors. He was also found to have urinary tract infection and an Infectious Diseases consultation has been obtained for antibiotics. PAST MEDICAL HISTORY: 1. History of cerebral infarction. 2. Benign neoplasm of the right adrenal gland. 3. Hypertension. 4. Hypertensive heart disease. SOCIAL HISTORY: Unknown. FAMILY HISTORY: Unknown. REVIEW OF SYSTEMS: Unable to obtain currently. MEDICATIONS: As an inpatient, he is on hydralazine, Protonix, nifedipine, labetalol, albuterol, chlorhexidine, Zosyn, norepinephrine, Tylenol, lidocaine, subcutaneous heparin x1, Zofran, and Mylanta. ALLERGIES: No known drug allergies. PHYSICAL EXAMINATION: VITAL SIGNS: Temperature of 98.4, T-max of 98.8, pulse of 91, respiratory rate 31, blood pressure 159/73, O2 saturation of 94%. HEENT: Pupils equally reactive to light and accommodation. Mouth appears clean without thrush. NECK: Supple. No adenopathy. No JVD. CARDIOVASCULAR: Regular rate and rhythm. No murmurs. LUNGS: Clear to auscultation bilaterally. No crackles. No wheezes. ABDOMEN: Soft and nontender. No organomegaly. EXTREMITIES: No cyanosis, no clubbing, no edema. Right groin catheter noted. LABORATORY AND DIAGNOSTIC DATA: White count of 19, hemoglobin 10.5, hematocrit 31.1, MCV 89, platelet count of 424, and neutrophils of 88%. Sodium , potassium 4.2, chloride 118, bicarb 15, BUN 73, creatinine 3.3, glucose of 75, calcium 8.2. Troponin 0.086. Brain natriuretic peptide 27,623. Total bilirubin 0.4. AST 18, ALT 32, and alkaline phosphatase 110. CK of 96, CK-MB 1.8, total protein 5.7. Albumin 2.2. Lipase of 366. UA showing too numerous to count white cells. Urine cultures are pending. Chest x-ray is showing small left-sided pleural effusion. Mild congestive heart failure. ASSESSMENT: This is a 53-year-old gentleman with history of cerebral infarction and hypertension, who comes in and was found to have, 1. Urinary tract infection. 2. Would like to rule out sepsis secondary to urinary tract infection. 3. Renal failure. 4. History of CVA. PLAN: 1. Continue Zosyn. 2. We will start the patient on linezolid. 3. We will follow up cultures and adjust antibiotics accordingly. I would like to thank, Dr. Hunter, for this consultation. Abbe Hernandez M.D. DRSd CARREON JOB#: [id number] CC: Wilder Hunter M.D.; Fax#: [phone]
--- NOTE | 2019-04-02 15:30 | NUR ---
NURSE NOTES: Patient continues to dry heave received order to change zofran frequency to Q4HR. Will administer another dose and continue to monitor. Patient blood pressure remains elevated. Dr Banegas ordered Clonidine 0.5mg PRN for SBP over 165 and D5 0.45% NS at 75mL/hr since the patient is NPO. Both have been administered. Will continue to monitor and administer medication as ordered.
--- NOTE | 2019-04-02 17:30 | NUR ---
NURSE NOTES: Patient blood pressure remains elevated. Will continue to monitor and notify Dr Black when he rounds on the patient. Will continue to administer clonidine as ordered. Patient sleeping at this time. No sign of acute distress. Will continue to monitor.
--- NOTE | 2019-04-02 18:14 | NUR ---
NURSE NOTES: Patient states that the scars on his legs and abdomen are from cats that he used to have. He states that he had seven cats.
--- NOTE | 2019-04-02 19:30 | NUR ---
HAND-OFF: Report given to LLUVIA Canela. Patient continues to vomit clear liquid emesis at this time. Patient given zofran x 2 during day shift. Patient's blood sugar remains elevated at 161/77. Patient has received all of his blood pressure medication and clonidine x2 during the shift. 2D echo result showed small pericardial effusion. Dr Black has not rounded on the patient yet. Endorsed to notify him and follow up.
--- NOTE | 2019-04-02 19:33 | NUR ---
NURSE NOTES: pt awake and alert no c/o pain on 2l n/cno acute resp distress noted iv infusing rt femoral tlc dressing dry and intact
[2019-04-02] MEDS: Dyna-Hex 2% Top Sol 2oz TOPIC SCH (20:30)
[2019-04-02] MEDS: HydrALAZINE 50mg tab ORAL SCH (21:58)
--- NOTE | 2019-04-02 22:00 | NUR ---
NURSE NOTES: sleeping at interval reposition and suction
[2019-04-03] VITALS (22 sets, daily range): BP systolic 136–187; BP diastolic 62–97
--- NOTE | 2019-04-03 | NUR ---
NURSE NOTES: medicated with .bp 180/76 as order urenary output goog
[2019-04-03] MEDS: Sodium Citrate 30ml ORAL SCH ×4 (00:24→18:24)
[2019-04-03] MEDS: D5 1/2NS 1,000 ML IV SCH (01:08)
--- NOTE | 2019-04-03 02:00 | NUR ---
NURSE NOTES: asleep at interval bp 160-180 /50-80 medicatedas order
[2019-04-03] MEDS: HydrALAZINE 50mg tab ORAL SCH ×2 (04:00→21:57)
[2019-04-03] MEDS: Piperacillin/Tazobactam 3.375 GM in NS 110 ML IVPB SCH ×2 (04:00→16:46)
--- NOTE | 2019-04-03 04:00 | NUR ---
NURSE NOTES: complete bed bath oral care done
--- NOTE | 2019-04-03 04:16 | Consultation ---
DATE OF CONSULTATION: 04/01/2019 TIME: 11:30 p.m. CONSULTING PHYSICIAN: Jeff Black M.D. REQUESTING PHYSICIAN: Dr. Wilder Hunter. REASON FOR CONSULTATION: Shock. HISTORY OF PRESENT ILLNESS: This 53-year-old male developed chest pain and was brought into the emergency room by paramedics. He apparently was noted to have severe hypotension, anemia, and leukocytosis in the emergency room. He was type and cross, pancultured, and admitted to the intensive care unit. I have been asked to assist with cardiovascular care. Pressor support has been ordered, although not yet initiated. The patient has been started on IV fluid hydration. PAST MEDICAL HISTORY: Notable for cerebral infarction, history of right adrenal adenoma, hypertension with hypertensive heart disease, type 2 diabetes mellitus, chronic kidney disease and anemia of chronic kidney disease. ALLERGIES: None. MEDICATIONS: Prior to admission reviewed and reconciled. FAMILY HISTORY: Not known. REVIEW OF SYSTEMS: Not obtainable. PHYSICAL EXAMINATION: VITAL SIGNS: Afebrile, blood pressure 82/61, pulse 68, and respiratory rate 20. HEENT: Temporal wasting. Pale conjunctivae. Oropharynx clear. NECK: Supple. Jugular venous pressure normal. LUNGS: Clear. CARDIAC: Regular rhythm and rate. Normal S1 and S2. There is a fourth heart sound. There is a 1/6 systolic murmur at the base. ABDOMEN: Soft and nontender. No guarding or rebound. EXTREMITIES: ____ no edema with decreased capillary refill. NEUROLOGIC: Responsive only to physical stimuli. LABORATORY DATA: Labs in the emergency room are as follows, white count 15.9, hemoglobin 6.8, and hematocrit 20.4. Urinalysis with too numerous to count white cells. Sodium 142, potassium 4.2, bicarbonate 17, BUN 57, and creatinine 3.1. Pro-natriuretic peptide 33,000. Troponin is 0.121. ABG 7.36, 25, 103. EKG with sinus rhythm, nonspecific ST-T wave changes. Chest x-ray revealed mild pulmonary venous congestion and small left pleural effusion. IMPRESSION: 1. Critical and guarded. 2. Shock. 3. Sepsis. 4. Hypovolemia. 5. Severe anemia. 6. Acute myocardial ischemia. 7. Acute on chronic diastolic congestive heart failure. 8. Acute on chronic renal failure. PLAN: 1. Intensive care unit care. 2. Volume resuscitation. 3. Broad-spectrum antibiotics. 4. Packed red blood cell transfusion. 5. Pressor support if fails to respond to fluid challenge and packed red blood cell. 6. Serial troponin. 7. Nasal oxygen. 8. SCD. 9. Monitor for source of blood loss. Jeff Black M.D. DR: TOPHER JOB#: [id number] CC:
--- NOTE | 2019-04-03 04:30 | Progress Note ---
DATE: 04/02/2019 CARDIOLOGY PROGRESS NOTE SUBJECTIVE: The patient's condition has remained critical, however, improved. He remains in the intensive care unit. He was not started on pressors. His blood pressure responded last night to fluid challenges and the transfusions of three units of packed red blood cells. He did have some coffee-ground emesis noted. The patient's blood pressure parameters are now increasing significantly. He has not had any complaints of chest pain. His troponin levels have decreased from 0.121 to 0.086. OBJECTIVE: VITAL SIGNS: Blood pressure 162/56, pulse 84, respiratory rate 15, and afebrile. LUNGS: Bilateral breath sounds. HEART: Regular rhythm and rate. Normal S1 and S2 with a fourth heart sound. ABDOMEN: Soft. No focal tenderness, guarding, or rebound. EXTREMITIES: With good distal pulses and no edema. LABORATORY DATA: Today, pro-natriuretic peptide has decreased to 27,000. Sodium 152, potassium 4.2, chloride 118, bicarbonate 15, BUN 73, creatinine 3.3, and glucose 75. Lactic acid has normalized. White count is 19 and hemoglobin 10.5. IMPRESSION: 1. Septic shock. 2. Hypovolemic shock. 3. Urinary tract infection. 4. Gastrointestinal bleeding. 5. Severe anemia, status post transfusions. 6. Acute myocardial ischemia. 7. Acute on chronic diastolic congestive heart failure. 8. Cerebrovascular accident. 9. Acute on chronic renal failure. 10. Dehydration. 11. Hyponatremia. 12. Hyperchloremia. 13. Metabolic and toxic encephalopathies. 14. Accelerated hypertension. PLAN: Hypotonic IV fluid hydration. Note, pressors as needed obviously. Stepwise resumption of antihypertensive regimen. Reassess for diuresis once metabolic parameters have been corrected. Broad-spectrum antimicrobial, skin care, and DVT prophylaxis. Jeff Black M.D. DR: FRANCISCO JOB#: [id number] CC:
[2019-04-03 05:33] LABS: HEMATOCRIT 36.3 % (42.0-52.0); HEMOGLOBIN 12.2 G/DL (14.2-18.0); MEAN CORPUSCULAR VOLUME 89 FL (80-99); PLATELET COUNT 453 K/UL (150-450); RED BLOOD COUNT 4.09 M/UL (4.70-6.10); RED CELL DISTRIBUTION WIDTH 13.1 % (11.6-14.8); WHITE BLOOD COUNT 19.1 K/UL (4.8-10.8)
--- NOTE | 2019-04-03 06:00 | NUR ---
NURSE NOTES: asleep no acute distress note
[2019-04-03 06:09] LABS: ALANINE AMINOTRANSFERASE 25 U/L (12-78); ALBUMIN 2.3 G/DL (3.4-5.0); ALBUMIN/GLOBULIN RATIO 0.6 (1.0-2.7); ALKALINE PHOSPHATASE 111 U/L (46-116); ANION GAP 16 mmol/L (5-15); ASPARTATE AMINO TRANSFERASE 13 U/L (15-37); BILIRUBIN,TOTAL 0.5 MG/DL (0.2-1.0); BLOOD UREA NITROGEN 48 mg/dL (7-18); CALCIUM 8.2 MG/DL (8.5-10.1); CARBON DIOXIDE 18 MMOL/L (21-32); CHLORIDE 119 MMOL/L (98-107); CHOLESTEROL 132 MG/DL (< 200); CREATINE KINASE 118 U/L (26-308); CREATININE 2.4 MG/DL (0.55-1.30); GAMMA GLUTAMYL TRANSPEPTIDASE 80 U/L (5-85); HDL CHOLESTEROL 30 MG/DL (40-60); PHOSPHORUS 4.6 MG/DL (2.5-4.9); POTASSIUM 3.2 MMOL/L (3.5-5.1); SODIUM 153 MMOL/L (136-145); TRIGLYCERIDES 109 MG/DL (30-150)
--- NOTE | 2019-04-03 07:15 | NUR ---
NURSE NOTES: RECEIVED BED SIDE REPORT FROM [facility] FRONT OFFICE ASSISTANT OF ICU.RECEIVED PT RESTING IN BED QUIETLY .PT IS AWAKE AND ALERT ORIENTED X3.PT IS FULL CODE STATUS.PT DENIES CP OR SOB AT THIS TIME BUT C/O,S OF FEELING NAUSEATED. PT MEDICATED WITH ZOFRAN 4MG IVP. PT WITH HIGH B/P 172/82, MEDICATED WITH CLONIDINE 0.1MG P.O AND ALL AM MEDICATIONS WITH APPLE SAUCE. PT TOLERATED WELL P.O MEDICATIONS AT THIS TIME.FULL BODY ASSESSMENT DONE .PT WITH TLC ON RT GROIN AREA IN PLACE AND INTACT. PT WITH F/C DRAINING WELL LG AMT OF URINE COLOR.Jero.Nanci COLES CAME TO SEE THE PT AND MADE AWARE AND NOTIFIED REGARDING k+ LEVEL 3.2 AND NA+ 153, ALSO PT HAVING A HIGH B/P. M.D ORDER TO GIVE KCL 40MEQ P.O X1 AND COREG 25MG P.O FOR HIGH B/P.ALL NEW ORDERS NOTED AND CARRIED OUT .WILL CONT TO MONITOR.
--- NOTE | 2019-04-03 07:35 | NUR ---
HAND-OFF: Report given to casper rn using sbar.
[2019-04-03] MEDS: Labetalol 200mg tab ORAL SCH (08:31)
[2019-04-03] MEDS ORDERED: Labetalol 200mg tab ORAL SCH (09:00)
[2019-04-03] MEDS: Tamsulosin 0.4mg cap ORAL SCH ×2 (10:23→18:24)
[2019-04-03] MEDS ORDERED: Carvedilol 25mg Tab ORAL SCH ×2 (10:30→21:00)
--- NOTE | 2019-04-03 10:32 | Nephrology Progress Note ---
Assessment/Plan Problem List: (1) Renal failure (ARF), acute on chronic (2) Anemia (3) Hypertensive kidney disease (4) Diabetic nephropathy (5) UTI (urinary tract infection) Assessment Renal failure: Likely Acute on Chronic Long history of IDDM Likely Diabetic Nephropathy, Proteinuria, HypoAlbuminemia HTN Anemia, GI bleed likely- s/p 3 units PRBCs transfusion UTI Plan plan; change IV to D5 add flomax replace Labetolol with Coreg Avoid nephrotoxics Adjust BP meds- Kidney GASTON- noted 2D Echo- noted PRN BP meds Urine studies adjust Zosyn dose for renal failure per orders St eval Subjective ROS Limited/Unobtainable: No Constitutional: Reports: malaise, weakness Objective Objective Last 24 Hour Vital Signs Date Time Temp Pulse Resp B/P (MAP) Pulse Ox O2 Delivery O2 Flow Rate FiO2 04/03/19 10:00 81 20 146/72 (96) 99 04/03/19 09:00 83 14 172/82 (112) 96 04/03/19 08:32 85 182/89 04/03/19 08:31 85 182/89 04/03/19 08:06 182/89 04/03/19 08:00 2.0 04/03/19 08:00 85 18 187/93 (124) 95 04/03/19 08:00 Nasal Cannula 2.0 04/03/19 07:00 97.2 86 20 182/89 (120) 94 04/03/19 06:00 84 15 174/64 (100) 97 04/03/19 05:00 84 15 174/64 (100) 97 04/03/19 04:00 98.4 82 15 163/97 (119) 97 04/03/19 04:00 Nasal Cannula 2.0 04/03/19 04:00 84 04/03/19 04:00 174/84 04/03/19 04:00 2.0 04/03/19 03:00 85 16 175/84 (114) 97 04/03/19 02:00 82 15 186/86 (119) 97 04/03/19 01:00 82 15 164/81 (108) 97 04/03/19 00:25 180/70 04/03/19 00:00 Nasal Cannula 2.0 04/03/19 00:00 98.5 82 15 180/70 (106) 97 04/03/19 00:00 84 04/03/19 00:00 2.0 04/02/19 23:00 82 15 187/49 (95) 97 04/02/19 22:00 84 15 162/56 (91) 97 04/02/19 21:58 166/76 04/02/19 21:00 83 15 161/49 (86) 96 04/02/19 20:35 81 170/79 04/02/19 20:00 Nasal Cannula 2.0 04/02/19 20:00 2.0 04/02/19 20:00 84 04/02/19 20:00 98.4 84 15 170/56 (94) 97 04/02/19 19:14 98 Nasal Cannula 2.0 28 04/02/19 19:00 83 15 135/49 (77) 97 04/02/19 18:11 171/82 04/02/19 18:07 84 171/82 04/02/19 18:00 85 15 166/72 (103) 95 04/02/19 17:00 84 15 162/76 (104) 97 04/02/19 16:44 158/70 04/02/19 16:00 Nasal Cannula 2.0 04/02/19 16:00 98.0 83 15 152/72 (98) 96 04/02/19 16:00 2.0 04/02/19 16:00 80 04/02/19 15:40 99 Nasal Cannula 2.0 28 04/02/19 15:00 83 21 170/78 (108) 97 04/02/19 14:00 84 21 166/90 (115) 97 04/02/19 13:15 172/82 04/02/19 13:00 84 22 163/76 (105) 95 04/02/19 13:00 84 177/81 04/02/19 12:00 98.6 85 22 159/80 (106) 93 04/02/19 12:00 84 04/02/19 12:00 2.0 04/02/19 12:00 Nasal Cannula 2.0 04/02/19 11:00 84 22 164/76 (105) 94 Intake and Output 04/02/19 04/03/19 18:59 06:59 Intake Total 1430.0 ml 1857.5 ml Output Total 1500 ml 940 ml Balance -70.0 ml 917.5 ml Intake Oral 500 ml IV Total 1430.0 ml 1357.5 ml Output Urine Total 1500 ml 940 ml # Voids 60 Laboratory Tests 04/02/19 16:48: Urine Random Sodium 56 04/03/19 05:05: White Blood Count 19.1H, Red Blood Count 4.09L, Hemoglobin 12.2L, Hematocrit 36.3L, Mean Corpuscular Volume 89, Mean Corpuscular Hemoglobin 29.9, Mean Corpuscular Hemoglobin Concent 33.7, Red Cell Distribution Width 13.1, Platelet Count 453H, Mean Platelet Volume 5.4L, Neutrophils (%) (Auto) , Lymphocytes (%) (Auto) , Monocytes (%) (Auto) , Eosinophils (%) (Auto) , Basophils (%) (Auto) , Differential Total Cells Counted 100, Neutrophils % (Manual) 92H, Lymphocytes % (Manual) 3L, Monocytes % (Manual) 5, Eosinophils % (Manual) 0, Basophils % ( Manual) 0, Band Neutrophils 0, Platelet Estimate Adequate, Platelet Morphology Normal, Red Blood Cell Morphology Normal, Sodium Level 153H, Potassium Level 3.2L, Chloride Level 119H, Carbon Dioxide Level 18L, Anion Gap 16H, Blood Urea Nitrogen 48H, Creatinine 2.4H, Estimat Glomerular Filtration Rate 28.6, Glucose Level 181#H, Hemoglobin A1c 5.9, Uric Acid 9.4H, Calcium Level 8.2L, Phosphorus Level 4.6, Magnesium Level 2.0, Total Bilirubin 0.5, Gamma Glutamyl Transpeptidase 80, Aspartate Amino Transf (AST/SGOT) 13L, Alanine Aminotransferase (ALT/SGPT) 25, Alkaline Phosphatase 111, Total Creatine Kinase 118, C-Reactive Protein, Quantitative 8.8H, Pro-B-Type Natriuretic Peptide [id number], Total Protein 6.3L, Albumin 2.3L, Globulin 4.0, Albumin/Globulin Ratio 0.6L, Triglycerides Level 109, Cholesterol Level 132, LDL Cholesterol 74, HDL Cholesterol 30L, Cholesterol/HDL Ratio 4.4, Vitamin B12 Level 990H, Folate 48.2 , Thyroid Stimulating Hormone (TSH) 1.648 Height (Feet): 5 Height (Inches): 8.00 Weight (Pounds): 155 General Appearance: no apparent distress Cardiovascular: normal rate Respiratory/Chest: decreased breath sounds Abdomen: distended Fouladian,Ismael MD Apr 03, 2019 10:32
--- NOTE | 2019-04-03 10:36 | NUR ---
*-* INSURANCE *-* ALL CLINICALS AND REVIEWS HAVE BEEN FAXED TO: [employer] NO AUTOMOTIVE ELECTRICAL HELPER ASSIGNED AT THIS TIME PLEASE FAX THE REVIEW/CLINICAL P- [phone] F- [phone]...REVIEW/CLINICAL
--- NOTE | 2019-04-03 10:41 | NUR ---
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 ARF . GI BLEED S/P x3 PRBC TRANSFUSION VS: BP 187/93, P 85, T 97.2, RR 20, SpO2 95 on 2.0 NC WBC 19.1, RBC 4.09, H&H 12.2/36.3, Plt COUNT 453, NA 153, K 3.2, BUN 48, CR 2.4 US RENAL: Bilateral pleural effusions. Mild prostate hypertrophy. IS:FLOMAX 0.4mg D5W x1L IV LINEZOLID 300mL IVPB NIFEDIPINE 60 Mg LABETALOL HCI 200mg ZOFRAN 4mg IVP CLONIDINE 0.1mg ZOSYN 110ml IVPB BICITRA 30ml PLAN: HYPOTONIC IV FLUID HYDRATION REPLACE LABETALOL WITH COREG CONTINUE ZOSYN ICU STATUS
--- NOTE | 2019-04-03 11:06 | Infectious Diseases Prog Note ---
Assessment/Plan Assessment/Plan antibiotics : linezolid, zosyn A 1. gram positive sepsis 2. gram negative UTI 3. shock 4. leucocytosis 5. CVA P 1. continue linezolid, zosyn 2. will follow up cultures Subjective ROS Limited/Unobtainable: Yes Allergies: Coded Allergies: No Known Allergies (Unverified , 04/01/19) Objective Vital Signs Last 24 Hour Vital Signs Date Time Temp Pulse Resp B/P (MAP) Pulse Ox O2 Delivery O2 Flow Rate FiO2 04/03/19 11:00 80 18 148/71 (96) 04/03/19 10:53 81 146/72 04/03/19 10:00 81 20 146/72 (96) 99 04/03/19 09:00 83 14 172/82 (112) 96 04/03/19 08:32 85 182/89 04/03/19 08:31 85 182/89 04/03/19 08:06 182/89 04/03/19 08:00 2.0 04/03/19 08:00 85 18 187/93 (124) 95 04/03/19 08:00 Nasal Cannula 2.0 04/03/19 07:00 97.2 86 20 182/89 (120) 94 04/03/19 06:00 84 15 174/64 (100) 97 04/03/19 05:00 84 15 174/64 (100) 97 04/03/19 04:00 98.4 82 15 163/97 (119) 97 04/03/19 04:00 Nasal Cannula 2.0 04/03/19 04:00 84 04/03/19 04:00 174/84 04/03/19 04:00 2.0 04/03/19 03:00 85 16 175/84 (114) 97 04/03/19 02:00 82 15 186/86 (119) 97 04/03/19 01:00 82 15 164/81 (108) 97 04/03/19 00:25 180/70 04/03/19 00:00 Nasal Cannula 2.0 04/03/19 00:00 98.5 82 15 180/70 (106) 97 04/03/19 00:00 84 04/03/19 00:00 2.0 04/02/19 23:00 82 15 187/49 (95) 97 04/02/19 22:00 84 15 162/56 (91) 97 04/02/19 21:58 166/76 04/02/19 21:00 83 15 161/49 (86) 96 04/02/19 20:35 81 170/79 04/02/19 20:00 Nasal Cannula 2.0 04/02/19 20:00 2.0 04/02/19 20:00 84 04/02/19 20:00 98.4 84 15 170/56 (94) 97 04/02/19 19:14 98 Nasal Cannula 2.0 28 04/02/19 19:00 83 15 135/49 (77) 97 04/02/19 18:11 171/82 04/02/19 18:07 84 171/82 04/02/19 18:00 85 15 166/72 (103) 95 04/02/19 17:00 84 15 162/76 (104) 97 04/02/19 16:44 158/70 04/02/19 16:00 Nasal Cannula 2.0 04/02/19 16:00 98.0 83 15 152/72 (98) 96 04/02/19 16:00 2.0 04/02/19 16:00 80 04/02/19 15:40 99 Nasal Cannula 2.0 28 04/02/19 15:00 83 21 170/78 (108) 97 04/02/19 14:00 84 21 166/90 (115) 97 04/02/19 13:15 172/82 04/02/19 13:00 84 22 163/76 (105) 95 04/02/19 13:00 84 177/81 04/02/19 12:00 98.6 85 22 159/80 (106) 93 04/02/19 12:00 84 04/02/19 12:00 2.0 04/02/19 12:00 Nasal Cannula 2.0 Height (Feet): 5 Height (Inches): 8.00 Weight (Pounds): 155 Respiratory/Chest: lungs clear Cardiovascular: normal rate, regular rhythm, no gallop/murmur Abdomen: soft, non tender Extremities: no edema, other - right groin catheter Microbiology Date/Time Source Procedure Growth Status 04/01/19 08:35 Blood Blood Culture - Preliminary Resulted 04/01/19 08:20 Blood Blood Culture - Preliminary NO GROWTH AFTER 24 HOURS Resulted 04/01/19 10:40 Nasal Nares MRSA Culture - Final NO METHICILLIN RESISTANT STAPH AUREUS... Complete 04/01/19 08:20 Urine,Clean Catch Urine Culture - Preliminary Gram Negative Bacillus 1 Gram Negative Bacillus 2 Resulted 04/01/19 10:40 Rectum VRE Culture - Final NO VANCOMYCIN RESISTANT ENTEROCOCCUS ... Resulted 04/01/19 10:40 Rectum Pending Resulted Laboratory Tests Test 04/02/19 16:48 04/03/19 05:05 Urine Random Sodium 56 mmol/L (20-110) White Blood Count 19.1 K/UL (4.8-10.8) H Red Blood Count 4.09 M/UL (4.70-6.10) L Hemoglobin 12.2 G/DL (14.2-18.0) L Hematocrit 36.3 % (42.0-52.0) L Mean Corpuscular Volume 89 FL (80-99) Mean Corpuscular Hemoglobin 29.9 PG (27.0-31.0) Mean Corpuscular Hemoglobin Concent 33.7 G/DL (32.0-36.0) Red Cell Distribution Width 13.1 % (11.6-14.8) Platelet Count 453 K/UL (150-450) H Mean Platelet Volume 5.4 FL (6.5-10.1) L Neutrophils (%) (Auto) % (45.0-75.0) Lymphocytes (%) (Auto) % (20.0-45.0) Monocytes (%) (Auto) % (1.0-10.0) Eosinophils (%) (Auto) % (0.0-3.0) Basophils (%) (Auto) % (0.0-2.0) Differential Total Cells Counted 100 Neutrophils % (Manual) 92 % (45-75) H Lymphocytes % (Manual) 3 % (20-45) L Monocytes % (Manual) 5 % (1-10) Eosinophils % (Manual) 0 % (0-3) Basophils % (Manual) 0 % (0-2) Band Neutrophils 0 % (0-8) Platelet Estimate Adequate Platelet Morphology Normal Red Blood Cell Morphology Normal Sodium Level 153 MMOL/L (136-145) H Potassium Level 3.2 MMOL/L (3.5-5.1) L Chloride Level 119 MMOL/L (98-107) H Carbon Dioxide Level 18 MMOL/L (21-32) L Anion Gap 16 mmol/L (5-15) H Blood Urea Nitrogen 48 mg/dL (7-18) H Creatinine 2.4 MG/DL (0.55-1.30) H Estimat Glomerular Filtration Rate 28.6 mL/min (>60) Glucose Level 181 MG/DL (74-106) #H Hemoglobin A1c 5.9 % (4.3-6.0) Uric Acid 9.4 MG/DL (2.6-7.2) H Calcium Level 8.2 MG/DL (8.5-10.1) L Phosphorus Level 4.6 MG/DL (2.5-4.9) Magnesium Level 2.0 MG/DL (1.8-2.4) Total Bilirubin 0.5 MG/DL (0.2-1.0) Gamma Glutamyl Transpeptidase 80 U/L (5-85) Aspartate Amino Transf (AST/SGOT) 13 U/L (15-37) L Alanine Aminotransferase (ALT/SGPT) 25 U/L (12-78) Alkaline Phosphatase 111 U/L (46-116) Total Creatine Kinase 118 U/L (26-308) C-Reactive Protein, Quantitative 8.8 mg/dL (0.00-0.90) H Pro-B-Type Natriuretic Peptide 92499 pg/mL (0-125) H Total Protein 6.3 G/DL (6.4-8.2) L Albumin 2.3 G/DL (3.4-5.0) L Globulin 4.0 g/dL Albumin/Globulin Ratio 0.6 (1.0-2.7) L Triglycerides Level 109 MG/DL (30-150) Cholesterol Level 132 MG/DL (< 200) LDL Cholesterol 74 mg/dL (<100) HDL Cholesterol 30 MG/DL (40-60) L Cholesterol/HDL Ratio 4.4 (3.3-4.4) Vitamin B12 Level 990 PG/ML (193-986) H Folate 48.2 NG/ML (8.6-58.9) Thyroid Stimulating Hormone (TSH) 1.648 uiU/mL (0.358-3.740) Current Medications Medications (Trade) Dose Ordered Sig/Josh Route PRN Reason Start Time Stop Time Status Last Admin Dose Admin Acetaminophen (Tylenol) 650 mg Q4H PRN ORAL Mild Pain (Pain Scale 1-3) 04/01/19 15:45 05/01/19 15:44 Acetaminophen (Tylenol) 650 mg Q4H PRN ORAL T>100.5 04/01/19 15:45 05/01/19 15:44 Albuterol Sulfate (Proventil) 2.5 mg Q4HR PRN HHN Shortness of Breath 04/01/19 21:30 04/06/19 21:14 Carvedilol (Coreg) 25 mg EVERY 12 HOURS ORAL 04/03/19 21:00 05/03/19 20:59 Carvedilol (Coreg) 25 mg ONCE ORAL 04/03/19 10:30 04/03/19 11:30 04/03/19 10:53 Chlorhexidine Gluconate (Christina-Hex 2%) 1 applic DAILY@2000 TOPIC 04/01/19 20:00 05/01/19 19:59 04/02/19 20:30 Clonidine HCl (Catapres Tab) 0.1 mg Q4H PRN ORAL bp over 165 syst, 100 diast 04/02/19 12:00 05/02/19 11:59 04/03/19 08:06 Dextrose 1,000 ml @ 75 mls/hr [id number] IV 04/03/19 08:45 05/03/19 08:44 04/03/19 08:59 Dextrose (Dextrose 50%) 25 ml Q30M PRN IV Hypoglycemia 04/01/19 15:45 05/01/19 15:44 Dextrose (Dextrose 50%) 50 ml Q30M PRN IV Hypoglycemia 04/01/19 15:45 05/01/19 15:44 Heparin Sodium/ Sodium Chloride (Heparin 1000 units/500ml Premix) 1,000 unit ONCE PRN IV PICC PLACEMENT 04/01/19 15:45 04/03/19 23:59 Hydralazine HCl (Apresoline) 100 mg Q8HR ORAL 04/03/19 14:00 05/02/19 11:59 Lidocaine HCl (Xylocaine 1% 30ml) 30 ml ONCE PRN INJ PICC PLACEMENT 04/01/19 15:45 04/03/19 23:59 Linezolid 300 ml @ 300 mls/hr Q12HR IVPB 04/02/19 12:00 04/09/19 11:59 04/03/19 08:51 Nifedipine (Procardia XL) 60 mg Q12HR ORAL 04/02/19 09:00 05/02/19 08:59 04/03/19 08:32 Ondansetron HCl (Zofran) 4 mg Q4H PRN IVP Nausea & Vomiting 04/02/19 17:30 05/02/19 17:29 04/03/19 08:24 Pantoprazole (Protonix) 40 mg EVERY 12 HOURS ORAL 04/02/19 09:00 05/02/19 08:59 04/03/19 08:32 Piperacillin Sod/ Tazobactam Sod 3.375 gm/Sodium Chloride 110 ml @ 27.5 mls/hr Q12H IVPB 04/02/19 16:00 04/08/19 19:59 04/03/19 04:00 Potassium Chloride (K-Dur) 40 meq DAILY ORAL 04/03/19 09:00 05/03/19 08:59 04/03/19 10:43 Sodium Citrate (Bicitra) 30 ml EVERY 6 HOURS ORAL 04/02/19 12:00 05/02/19 11:59 04/03/19 06:08 Tamsulosin HCl (Flomax) 0.4 mg BID ORAL 04/03/19 09:00 05/03/19 08:59 04/03/19 10:23 Abbe Hernandez MD Apr 03, 2019 11:06
--- NOTE | 2019-04-03 12:09 | NUR ---
RD ASSESSMENT & RECOMMENDATIONS SEE CARE ACTIVITY FOR COMPLETE ASSESSMENT DAILY ESTIMATED NEEDS: Needs based on Cardiac, diabetes/ 66kg 25-30 kcals/kg [id number] total kcals 1-1.3 g protein/kg 66-86 g total protein 25-30 mL/kg total fluid mLs NUTRITION DIAGNOSIS: * Altered GI function R/T unknown etiology as evidenced by pt is NPO, c/o N/V. * Possible swallowing difficulty R/T dysphagia, h/o CVA as evidenced by NPO, difficulty tolerating oral meds per RN, pending LEAD BI DEVELOPER eval. CURRENT DIET:NPO PO DIET RECOMMENDATIONS: LOW NA, CCHO MED/ texture per LEAD BI DEVELOPER ADDITIONAL RECOMMENDATIONS: * Calibrated bedscale wt for accurate CBW * Monitor lytes, replete as needed * Monitor NPO status, ability to feed, tolerate diet -> dry heaving w/ episodes of vomiting * Wound eval: rec WC specialist wound evaluation -> w/ diet order, add MVI x 1, Vit C 250mg QD, Sumeet 1pkt BID
--- NOTE | 2019-04-03 12:42 | NUR ---
ST NOTE: BEDSIDE SWALLOW EVAL RECEIVED BEDSIDE SWALLOW EVAL ORDER CHART REVIEWED PRIOR THE EVALUATION REFERRED BY MD. DR. PHIPPS (PER RNGILMAR, WILL PUT IN THE ORDER) PT IS A 53-YEAR-OLD MALE WHO WAS ADMITTED FOR DYSPNEA, ACUTE CORONARY SYNDROME, SEVERE SEPSIS, AND SIGNIFICANT VOMITING. PT HAS HISTORY OF CVA(3 MONTHS AGO-12/25/18) WITH R-SIDED WEAKNESS. 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 PLOF: PT RESIDES AT SNF. PER CHART, PT WAS ON ROSALINDA CC LARGE REGULAR WITH THIN LIQUIDS DIET. PER PT'S POLST: FULL CODE, FULL TREATMENT, OKAY FOR SENIOR CARE NONORAL FEEDING MEANS, IF NEEDED CURRENT STATUS: PT SEEN AT BEDSIDE IN LATE AM. ALERT, COOPERATIVE, WITH NC(2L), NPO DAY 3. VOICE IS MILDLY REDUCED LOUDNESS. PT IS ABLE TO FOLLOW SIMPLE DIRECTIONS. VERBAL AND ABLE TO EXPRESS WANTS AND NEEDS. GIVEN PO TRIALS: THIN (CUP- SMALL SIPS) ONLY. INITIAL IMPRESSION: MILD ORAL PHASE AND PROBABLE MODERATE PHARYNGEAL PHASE AND QUESTIONABLE ESOPHAGEAL PHASE DYSPHAGIA ORAL MOTOR EXAMINATION: MILDLY RIGHT-SIDED FACIAL DROOP. TONGUE IS MILDLY DEVIATED TO L-SIDED BUT NOT SIGNIFICANT. GOOD LABIAL AND LINGUAL RANGE OF MOTION AND STRENGTH DURING PO: MILDLY INCREASED ORAL TRANSIT TIME(3 SECS) UNTIL PT INITIATED PHARYNGEAL SWALLOW, MILDLY REDUCED LARYNGEAL ELEVATION, NO OVERT S/S OF ASPIRATION. HOWEVER, PT FELT NAUSEOUS AND SPIT OUT ALL LIQUIDS. NO FURTHER PO WAS GIVEN AT THIS TIME. PER PT, FEELS NAUSEA AND VOMITS AFTER EATING/DRINKING; AND PER PT, HE DOESN'T EAT A LOT CURRENTLY. PT HAS HIGH RISK FOR (SILENT) ASPIRATION. RECOMMENDATIONS: 1. KEEP PT NPO(PER , DR. HOLLY, KEEP PT NPO FOR NOW) 2. MODIFIED BARIUM SWALLOW STUDY WHEN CLEAR BY GI. 3. TEMPORARILY NGT IF NEEDED. D/W PT, GILMAR TEIXEIRA. POSTED NPO SIGN.
[2019-04-03] MEDS ORDERED: HydrALAZINE 50mg tab ORAL SCH (14:00)
--- NOTE | 2019-04-03 14:07 | NUR ---
Social Work This Sw met with patient who is currently in the ICU to provide emotional support. Patient is from [facility] with a history of stroke. Patient is currently alert/oriented x3, explaining he does not have any family or friends for decision making. Patient explains he wants to be his own decision maker. Laytonst on front of chart, requesting Full Code, Full treatment. 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 Patient anticipates returning back to his same level of functioning, prior to the stroke (uncertain how realistic this is at this time). Pending progress. Patient has history of smoking cigarettes, but no other substance abuse or mental dana concerns present at this time. This Sw discussed discharge plans to return to [facility] upon discharge; patient stating he does not want to return there, while this SW explained the need for 24 hour skilled care, until he can show independent level of functioning.
--- NOTE | 2019-04-03 14:50 | Pulmonolgy Critical Care Note ---
Critical Care - Asmt/Plan Assessment/Plan: Pulmonary CCM Progress Note Assessment/Plan IMPRESSION: 1. Acute on chronic renal failure. 2. Hypotension. 3. Septic shock. 4. Chest pain. 5. Elevated troponin. 6. Profound anemia. s/p transfusion 7. Possible gastrointestinal bleed. 8. History of hypertension, 9. protein calorie malnutrition PLAN HH improved gi noted await ID and renal evaluation hydration out of ICU now off pressors ? resume antihypertensives medications/laboratory data/nursing notes/ICU care reviewed in detail note reviewed and edited care discussed with RN and RT ICU time spent 40 minutes Critical Care - Subjective ROS Limited/Unobtainable: Yes Condition: improving Critical Care - Objective Vital Signs Noted Laboratory Tests Test 04/01/19 08:39 04/02/19 05:00 Arterial Blood pH 7.369 (7.350-7.450) Arterial Blood Partial Pressure CO2 25.3 mmHg (35.0-45.0) L Arterial Blood Partial Pressure O2 103.7 mmHg (75.0-100.0) H Arterial Blood HCO3 14.3 mmol/L (22.0-26.0) *L Arterial Blood Oxygen Saturation 96.4 % (95-100) Arterial Blood Base Excess -10.0 (-2-2) *L Kin Test Positive White Blood Count 19.0 K/UL (4.8-10.8) H Red Blood Count 3.50 M/UL (4.70-6.10) L Hemoglobin 10.5 G/DL (14.2-18.0) #L Hematocrit 31.1 % (42.0-52.0) #L Mean Corpuscular Volume 89 FL (80-99) Mean Corpuscular Hemoglobin 30.1 PG (27.0-31.0) Mean Corpuscular Hemoglobin Concent 33.9 G/DL (32.0-36.0) Red Cell Distribution Width 12.8 % (11.6-14.8) Platelet Count 424 K/UL (150-450) Mean Platelet Volume 5.6 FL (6.5-10.1) L Neutrophils (%) (Auto) % (45.0-75.0) Lymphocytes (%) (Auto) % (20.0-45.0) Monocytes (%) (Auto) % (1.0-10.0) Eosinophils (%) (Auto) % (0.0-3.0) Basophils (%) (Auto) % (0.0-2.0) Differential Total Cells Counted 100 Neutrophils % (Manual) 88 % (45-75) H Lymphocytes % (Manual) 5 % (20-45) L Monocytes % (Manual) 4 % (1-10) Eosinophils % (Manual) 0 % (0-3) Basophils % (Manual) 0 % (0-2) Band Neutrophils 3 % (0-8) Platelet Estimate Adequate Platelet Morphology Normal Acanthocytes 2+ Sodium Level 152 MMOL/L (136-145) H Potassium Level 4.2 MMOL/L (3.5-5.1) Chloride Level 118 MMOL/L (98-107) H Carbon Dioxide Level 15 MMOL/L (21-32) L Anion Gap 19 mmol/L (5-15) H Blood Urea Nitrogen 73 mg/dL (7-18) H Creatinine 3.3 MG/DL (0.55-1.30) H Estimat Glomerular Filtration Rate 19.8 mL/min (>60) Glucose Level 75 MG/DL (74-106) Calcium Level 8.2 MG/DL (8.5-10.1) L Troponin I 0.086 ng/mL (0.000-0.056) Pro-B-Type Natriuretic Peptide 72447 pg/mL (0-125) H Objective: HEENT: Negative. NECK: Supple. No adenopathy. LUNGS: Moderate breath sounds. CARDIAC: S1, S2. Regular rate and rhythm. ABDOMEN: Soft. EXTREMITIES: No edema. Micro: Microbiology Date/Time Source Procedure Growth Status 04/01/19 08:20 Urine,Clean Catch Urine Culture - Preliminary Resulted Critical Care - Objective Last 24 Hour Vital Signs Date Time Temp Pulse Resp B/P (MAP) Pulse Ox O2 Delivery O2 Flow Rate FiO2 04/03/19 13:52 152/76 04/03/19 13:00 79 17 152/76 (101) 04/03/19 12:00 Nasal Cannula 2.0 04/03/19 12:00 98.9 79 19 150/73 (98) 98 04/03/19 12:00 2.0 04/03/19 11:00 80 18 148/71 (96) 04/03/19 10:53 81 146/72 04/03/19 10:00 81 20 146/72 (96) 99 04/03/19 09:00 83 14 172/82 (112) 96 04/03/19 08:32 85 182/89 04/03/19 08:31 85 182/89 04/03/19 08:06 182/89 04/03/19 08:00 2.0 04/03/19 08:00 85 18 187/93 (124) 95 04/03/19 08:00 87 04/03/19 08:00 Nasal Cannula 2.0 04/03/19 07:15 98 Nasal Cannula 2.0 28 04/03/19 07:00 97.2 86 20 182/89 (120) 94 04/03/19 06:00 84 15 174/64 (100) 97 04/03/19 05:00 84 15 174/64 (100) 97 04/03/19 04:00 98.4 82 15 163/97 (119) 97 04/03/19 04:00 Nasal Cannula 2.0 04/03/19 04:00 84 04/03/19 04:00 174/84 04/03/19 04:00 2.0 04/03/19 03:00 85 16 175/84 (114) 97 04/03/19 02:00 82 15 186/86 (119) 97 04/03/19 01:00 82 15 164/81 (108) 97 04/03/19 00:25 180/70 04/03/19 00:00 Nasal Cannula 2.0 04/03/19 00:00 98.5 82 15 180/70 (106) 97 04/03/19 00:00 84 04/03/19 00:00 2.0 04/02/19 23:00 82 15 187/49 (95) 97 04/02/19 22:00 84 15 162/56 (91) 97 04/02/19 21:58 166/76 04/02/19 21:00 83 15 161/49 (86) 96 04/02/19 20:35 81 170/79 04/02/19 20:00 Nasal Cannula 2.0 04/02/19 20:00 2.0 04/02/19 20:00 84 04/02/19 20:00 98.4 84 15 170/56 (94) 97 04/02/19 19:14 98 Nasal Cannula 2.0 28 04/02/19 19:00 83 15 135/49 (77) 97 04/02/19 18:11 171/82 04/02/19 18:07 84 171/82 04/02/19 18:00 85 15 166/72 (103) 95 04/02/19 17:00 84 15 162/76 (104) 97 04/02/19 16:44 158/70 04/02/19 16:00 Nasal Cannula 2.0 04/02/19 16:00 98.0 83 15 152/72 (98) 96 04/02/19 16:00 2.0 04/02/19 16:00 80 04/02/19 15:40 99 Nasal Cannula 2.0 28 04/02/19 15:00 83 21 170/78 (108) 97 Micro: Microbiology Date/Time Source Procedure Growth Status 04/01/19 08:35 Blood Blood Culture - Preliminary Resulted 04/01/19 08:20 Blood Blood Culture - Preliminary NO GROWTH AFTER 24 HOURS Resulted 04/01/19 10:40 Nasal Nares MRSA Culture - Final NO METHICILLIN RESISTANT STAPH AUREUS... Complete 04/01/19 08:20 Urine,Clean Catch Urine Culture - Preliminary Gram Negative Bacillus 1 Gram Negative Bacillus 2 Resulted 04/01/19 10:40 Rectum VRE Culture - Final NO VANCOMYCIN RESISTANT ENTEROCOCCUS ... Resulted 04/01/19 10:40 Rectum Pending Resulted Accucheck: 197 Critical Care - Subjective ROS Limited/Unobtainable: No FI02: 28 Sputum Amount: None I&O: Intake and Output 04/02/19 04/03/19 19:00 07:00 Intake Total 1377.5 ml 1782.5 ml Output Total 1400 ml 1140 ml Balance -22.5 ml 642.5 ml Intake Oral 500 ml IV Total 1377.5 ml 1282.5 ml Output Urine Total 1400 ml 1140 ml # Voids 60 Jeff Rowe MD Apr 03, 2019 14:50
--- NOTE | 2019-04-03 18:40 | NUR ---
NURSE NOTES: DR PHIPPS ORDER TO D/C TLC PRIOR TRANSFER THE PT TO [facility].TLC REMOVED BY HIEU TEIXEIRA IN CHARGE OF ICU AND NEW H.L G# 20 INSERTED ON RT HAND. PT TRANSFER TO [facility] VIA BED ON STABLE CONDITIONS.
--- NOTE | 2019-04-03 18:49 | Cardiology Report ---
APPROVED REPORT EXAM: Two-dimensional and M-mode echocardiogram with Doppler and color Doppler. INDICATION Congestive Heart Failure M-Mode DIMENSIONS IVSd0.9 (0.7-1.1cm)Left Atrium (MM)3.3 (1.6-4.0cm) LVDd4.6 (3.5-5.6cm)Aortic Root3.8 (2.0-3.7cm) PWd1.2 (0.7-1.1cm)Aortic Cusp Exc.1.9 (1.5-2.0cm) IVSs1.1 cm LVDs3.2 (2.5-4.0cm) PWs1.3 cm Normal left ventricular chamber size, systolic function and wall motion . Left ventricular ejection fraction estimated to be 50-55%. Mild left ventricular hypertrophy by 2-D. Small circumferential pericardial effusion. Mild left atrial enlargement . Right cardiac chamber sizes are within normal limits. Aortic valve calcification with normal cusp excursion . Mildly thickened mitral valve leaflets with normal excursion. Mild mitral annulus and aortic root calcification. Pulmonic valve not well visualized. IVC at normal size with physiologic collapse . A color flow and spectral Doppler study was performed and revealed: No aortic insufficiency . Mitral inflow indicates normal left ventricular diastolic function. Moderate mitral regurgitation. Mild tricuspid regurgitation. Tricuspid systolic velocities suggests peak right ventricular systolic pressure of 41mmHg,consistent with mild pulmonary HTN.
--- NOTE | 2019-04-03 19:00 | NUR ---
NURSE NOTES: BED SIDE REPORT GIVEN TO LISSY TEIXEIRA STAFF.
--- NOTE | 2019-04-03 19:01 | NUR ---
NURSE NOTES: Received patient from Quang RN. Patient is stable, awake, in bed with no signs of distress. Patient is NPO. Right hand 22g running D5W. Bed is at its lowest position, call light in reach and X3 bed rails up.
[2019-04-03] MEDS ORDERED: Albuterol ud Inhalation HHN PRN (21:00)
--- NOTE | 2019-04-03 21:23 | General Progress Note ---
Assessment/Plan Assessment/Plan: Assessment - UGIB (but stools brown, not melena) - N/V, Hiccups - suspect GERD - failed swallow evaluation - Anemia, s/p transfusion - CP, mild elevation in troponin - Azotemia Recommendation - Keep NPO until dry heaves resolves - BID PPI - PRN zofran - Monitor CBC - transfuse PRN - EGD once cleared from cardiology standpoint Thank you Arlet Rubio MD Subjective Allergies: Coded Allergies: No Known Allergies (Unverified , 04/01/19) Subjective Above noted out of ICU today still with nausea and dry heaves failed swallow evaluation but H&H better after transfusion Objective Last 24 Hour Vital Signs Date Time Temp Pulse Resp B/P (MAP) Pulse Ox O2 Delivery O2 Flow Rate FiO2 04/03/19 20:00 98.6 78 18 145/75 (98) 97 04/03/19 20:00 Nasal Cannula 2.0 04/03/19 18:00 76 20 150/75 (100) 98 04/03/19 17:13 162/85 04/03/19 17:00 77 18 139/81 (100) 100 04/03/19 16:00 87 04/03/19 16:00 2.0 04/03/19 16:00 Nasal Cannula 2.0 04/03/19 16:00 79 18 160/81 (107) 97 04/03/19 15:00 78 17 141/66 (91) 98 04/03/19 14:00 79 18 166/88 (114) 98 04/03/19 13:52 152/76 04/03/19 13:00 79 17 152/76 (101) 04/03/19 12:00 Nasal Cannula 2.0 04/03/19 12:00 98.9 79 19 150/73 (98) 98 04/03/19 12:00 80 04/03/19 12:00 2.0 04/03/19 11:00 80 18 148/71 (96) 04/03/19 10:53 81 146/72 04/03/19 10:00 81 20 146/72 (96) 99 04/03/19 09:00 83 14 172/82 (112) 96 04/03/19 08:32 85 182/89 04/03/19 08:31 85 182/89 04/03/19 08:06 182/89 6/26/19 08:00 2.0 04/03/19 08:00 85 18 187/93 (124) 95 04/03/19 08:00 87 04/03/19 08:00 Nasal Cannula 2.0 04/03/19 07:15 98 Nasal Cannula 2.0 28 04/03/19 07:00 97.2 86 20 182/89 (120) 94 04/03/19 06:00 84 15 174/64 (100) 97 04/03/19 05:00 84 15 174/64 (100) 97 04/03/19 04:00 98.4 82 15 163/97 (119) 97 04/03/19 04:00 Nasal Cannula 2.0 04/03/19 04:00 84 04/03/19 04:00 174/84 04/03/19 04:00 2.0 04/03/19 03:00 85 16 175/84 (114) 97 04/03/19 02:00 82 15 186/86 (119) 97 04/03/19 01:00 82 15 164/81 (108) 97 04/03/19 00:25 180/70 04/03/19 00:00 Nasal Cannula 2.0 04/03/19 00:00 98.5 82 15 180/70 (106) 97 04/03/19 00:00 84 04/03/19 00:00 2.0 04/02/19 23:00 82 15 187/49 (95) 97 04/02/19 22:00 84 15 162/56 (91) 97 04/02/19 21:58 166/76 Intake and Output 04/02/19 04/03/19 19:00 07:00 Intake Total 1377.5 ml 1782.5 ml Output Total 1400 ml 1140 ml Balance -22.5 ml 642.5 ml Intake Oral 500 ml IV Total 1377.5 ml 1282.5 ml Output Urine Total 1400 ml 1140 ml # Voids 60 Laboratory Tests 04/03/19 05:05: White Blood Count 19.1H, Red Blood Count 4.09L, Hemoglobin 12.2L, Hematocrit 36.3L, Mean Corpuscular Volume 89, Mean Corpuscular Hemoglobin 29.9, Mean Corpuscular Hemoglobin Concent 33.7, Red Cell Distribution Width 13.1, Platelet Count 453H, Mean Platelet Volume 5.4L, Neutrophils (%) (Auto) , Lymphocytes (%) (Auto) , Monocytes (%) (Auto) , Eosinophils (%) (Auto) , Basophils (%) (Auto) , Differential Total Cells Counted 100, Neutrophils % (Manual) 92H, Lymphocytes % (Manual) 3L, Monocytes % (Manual) 5, Eosinophils % (Manual) 0, Basophils % ( Manual) 0, Band Neutrophils 0, Platelet Estimate Adequate, Platelet Morphology Normal, Red Blood Cell Morphology Normal, Sodium Level 153H, Potassium Level 3.2L, Chloride Level 119H, Carbon Dioxide Level 18L, Anion Gap 16H, Blood Urea Nitrogen 48H, Creatinine 2.4H, Estimat Glomerular Filtration Rate 28.6, Glucose Level 181#H, Hemoglobin A1c 5.9, Uric Acid 9.4H, Calcium Level 8.2L, Phosphorus Level 4.6, Magnesium Level 2.0, Total Bilirubin 0.5, Gamma Glutamyl Transpeptidase 80, Aspartate Amino Transf (AST/SGOT) 13L, Alanine Aminotransferase (ALT/SGPT) 25, Alkaline Phosphatase 111, Total Creatine Kinase 118, C-Reactive Protein, Quantitative 8.8H, Pro-B-Type Natriuretic Peptide 47238L, Total Protein 6.3L, Albumin 2.3L, Globulin 4.0, Albumin/Globulin Ratio 0.6L, Triglycerides Level 109, Cholesterol Level 132, LDL Cholesterol 74, HDL Cholesterol 30L, Cholesterol/HDL Ratio 4.4, Vitamin B12 Level 990H, Folate 48.2 , Thyroid Stimulating Hormone (TSH) 1.648 Height (Feet): 5 Height (Inches): 8.00 Weight (Pounds): 155 Objective WDWN man NCAT supple CTA RR abd soft NT ND no edema Arlet Rubio MD Apr 03, 2019 21:23
[2019-04-03] MEDS: Carvedilol 25mg Tab ORAL SCH (21:58)
--- NOTE | 2019-04-03 23:00 | NUR ---
NURSE NOTES: Patients continues retching throughout the night. No signs of distress. Will continue to monitor.
[2019-04-04] VITALS (11 sets, daily range): BP systolic 125–179; BP diastolic 76–99
[2019-04-04] MEDS: Sodium Citrate 30ml ORAL SCH ×6 (01:03→18:00)
--- NOTE | 2019-04-04 02:03 | NUR ---
NURSE NOTES: Patient refuses to sign consent until the morning. Will speak to patient at 0600 to sign.
[2019-04-04] MEDS ORDERED: Piperacillin/Tazobactam 3.375 GM in NS 110 ML IVPB SCH (04:00)
--- NOTE | 2019-04-04 05:45 | Progress Note ---
DATE: 04/03/2019 SUBJECTIVE: The patient has no new signs of bleeding. Hemoglobin has remained stable. Blood pressure parameters have increased yesterday and antihypertensives were resumed. OBJECTIVE: VITAL SIGNS: Blood pressure 145/75, pulse 78, and respirations 18. LUNGS: Clear. CARDIAC: Regular. Normal S1, S2 with a fourth heart sound. ABDOMEN: Soft. EXTREMITIES: Trace edema. LABORATORY DATA: White count 19 and hemoglobin 12. Potassium 3.3, sodium 153, bicarb 18, BUN 48, and creatinine 2.4. Pro-natriuretic peptide 33,000. IMPRESSION: 1. Gastrointestinal bleed. 2. Sepsis with recovered shock. 3. Severe anemia. 4. Dehydration. 5. Hypernatremia. 6. Hypokalemia. 7. Hyperchloremia. 8. Acute renal failure. 9. Acute on chronic diastolic congestive heart failure. PLAN: 1. Hypertonic IV fluids. 2. Respiratory hygiene. 3. Endoscopy to assess for source of bleeding. 4. Monitor hemoglobin and transfuse if needed. 5. Antimicrobials per Infectious Disease bus info consultant. Jeff Black M.D. DR: BRITTANEY JOB#: [id number] CC:
[2019-04-04] MEDS: HydrALAZINE 50mg tab ORAL SCH ×3 (05:52→22:02)
--- NOTE | 2019-04-04 06:14 | NUR ---
NURSE NOTES: Patient continues to retch without vomiting. Patient refused to take some medications because it makes him vomit. Patient signed consent in Faroese and agreed to procedure following MD explanation.
[2019-04-04 07:11] LABS: HEMATOCRIT 35.2 % (42.0-52.0); HEMOGLOBIN 11.8 G/DL (14.2-18.0); MEAN CORPUSCULAR VOLUME 89 FL (80-99); PLATELET COUNT 463 K/UL (150-450); RED BLOOD COUNT 3.95 M/UL (4.70-6.10); RED CELL DISTRIBUTION WIDTH 13.4 % (11.6-14.8); WHITE BLOOD COUNT 16.5 K/UL (4.8-10.8)
[2019-04-04 07:19] LABS: ALANINE AMINOTRANSFERASE 23 U/L (12-78); ALBUMIN 2.3 G/DL (3.4-5.0); ALBUMIN/GLOBULIN RATIO 0.6 (1.0-2.7); ALKALINE PHOSPHATASE 96 U/L (46-116); ANION GAP 14 mmol/L (5-15); ASPARTATE AMINO TRANSFERASE 12 U/L (15-37); BILIRUBIN,TOTAL 0.6 MG/DL (0.2-1.0); BLOOD UREA NITROGEN 38 mg/dL (7-18); CALCIUM 8.5 MG/DL (8.5-10.1); CARBON DIOXIDE 20 MMOL/L (21-32); CHLORIDE 122 MMOL/L (98-107); CREATININE 2.2 MG/DL (0.55-1.30); PHOSPHORUS 3.5 MG/DL (2.5-4.9); POTASSIUM 3.3 MMOL/L (3.5-5.1); SODIUM 156 MMOL/L (136-145)
--- NOTE | 2019-04-04 07:35 | NUR ---
HAND-OFF: Report given to Noah TEIXEIRA.
--- NOTE | 2019-04-04 07:40 | NUR ---
NURSE NOTES: Received report from Francisco/RN, Patient is awake, resting comfortably, No acute distress/SOB noted. Zosyn running on right hand; Patent, no bleeding or infiltration noted. Bed in low position and locked, Call light within reach. Belonging in reach. Will continue plan of care.
--- NOTE | 2019-04-04 07:55 | Critical Care Progress Note ---
Assessment/Plan Assessment/Plan IMPRESSION: 1. Acute on chronic renal failure. 2. Hypotension. 3. Septic shock. 4. Chest pain. 5. Elevated troponin. 6. Profound anemia. s/p transfusion 7. Possible gastrointestinal bleed. 8. History of hypertension, 9. protein calorie malnutrition PLAN HH improved gi noted all improved off pressors hydration out of ICU antihypertensives medications/laboratory data/nursing notes reviewed in detail note reviewed and edited care discussed with RN and RT Critical Care - Subjective ROS Limited/Unobtainable: Yes Condition: improving EKG Rhythm: Sinus Rhythm I&O: Intake and Output 04/03/19 04/04/19 18:59 06:59 Intake Total 877.5 ml 666.25 ml Output Total 1350 ml 800 ml Balance -472.5 ml -133.75 ml Intake Oral 250 ml 10 ml IV Total 627.5 ml 656.25 ml Output Urine Total 1350 ml 800 ml Critical Care - Objective Last 24 Hour Vital Signs Date Time Temp Pulse Resp B/P (MAP) Pulse Ox O2 Delivery O2 Flow Rate FiO2 04/04/19 05:52 125/94 04/04/19 04:00 98.1 74 18 125/94 (104) 98 04/04/19 04:00 Nasal Cannula 2.0 04/04/19 04:00 75 04/04/19 04:00 2.0 04/04/19 00:00 Nasal Cannula 2.0 04/04/19 00:00 75 04/04/19 00:00 98.8 77 18 155/98 (117) 97 04/03/19 22:00 98.1 70 18 137/62 (87) 98 04/03/19 22:00 78 145/75 04/03/19 21:58 78 145/75 04/03/19 21:57 145/75 04/03/19 21:00 2.0 04/03/19 21:00 98.2 70 18 136/62 (86) 98 04/03/19 20:00 98.6 78 18 145/75 (98) 97 04/03/19 20:00 Nasal Cannula 2.0 04/03/19 19:47 97 Nasal Cannula 2.0 28 04/03/19 18:00 76 20 150/75 (100) 98 04/03/19 17:13 162/85 04/03/19 17:00 77 18 139/81 (100) 100 04/03/19 16:00 87 04/03/19 16:00 2.0 04/03/19 16:00 Nasal Cannula 2.0 04/03/19 16:00 79 18 160/81 (107) 97 04/03/19 15:00 78 17 141/66 (91) 98 04/03/19 14:00 79 18 166/88 (114) 98 04/03/19 13:52 152/76 04/03/19 13:00 79 17 152/76 (101) 04/03/19 12:00 Nasal Cannula 2.0 04/03/19 12:00 98.9 79 19 150/73 (98) 98 04/03/19 12:00 80 04/03/19 12:00 2.0 04/03/19 11:00 80 18 148/71 (96) 04/03/19 10:53 81 146/72 04/03/19 10:00 81 20 146/72 (96) 99 04/03/19 09:00 83 14 172/82 (112) 96 04/03/19 08:32 85 182/89 04/03/19 08:31 85 182/89 04/03/19 08:06 182/89 04/03/19 08:00 2.0 04/03/19 08:00 85 18 187/93 (124) 95 04/03/19 08:00 87 04/03/19 08:00 Nasal Cannula 2.0 Labs: Laboratory Tests Test 04/04/19 05:50 White Blood Count 16.5 K/UL (4.8-10.8) H Red Blood Count 3.95 M/UL (4.70-6.10) L Hemoglobin 11.8 G/DL (14.2-18.0) L Hematocrit 35.2 % (42.0-52.0) L Mean Corpuscular Volume 89 FL (80-99) Mean Corpuscular Hemoglobin 29.8 PG (27.0-31.0) Mean Corpuscular Hemoglobin Concent 33.4 G/DL (32.0-36.0) Red Cell Distribution Width 13.4 % (11.6-14.8) Platelet Count 463 K/UL (150-450) H Mean Platelet Volume 5.6 FL (6.5-10.1) L Neutrophils (%) (Auto) % (45.0-75.0) Lymphocytes (%) (Auto) % (20.0-45.0) Monocytes (%) (Auto) % (1.0-10.0) Eosinophils (%) (Auto) % (0.0-3.0) Basophils (%) (Auto) % (0.0-2.0) Neutrophils % (Manual) Pending Lymphocytes % (Manual) Pending Platelet Estimate Pending Platelet Morphology Pending Sodium Level 156 MMOL/L (136-145) H Potassium Level 3.3 MMOL/L (3.5-5.1) L Chloride Level 122 MMOL/L (98-107) H Carbon Dioxide Level 20 MMOL/L (21-32) L Anion Gap 14 mmol/L (5-15) Blood Urea Nitrogen 38 mg/dL (7-18) H Creatinine 2.2 MG/DL (0.55-1.30) H Estimat Glomerular Filtration Rate 31.6 mL/min (>60) Glucose Level 137 MG/DL (74-106) H Uric Acid 8.8 MG/DL (2.6-7.2) H Calcium Level 8.5 MG/DL (8.5-10.1) Phosphorus Level 3.5 MG/DL (2.5-4.9) Magnesium Level 2.1 MG/DL (1.8-2.4) Total Bilirubin 0.6 MG/DL (0.2-1.0) Aspartate Amino Transf (AST/SGOT) 12 U/L (15-37) L Alanine Aminotransferase (ALT/SGPT) 23 U/L (12-78) Alkaline Phosphatase 96 U/L (46-116) Total Protein 6.3 G/DL (6.4-8.2) L Albumin 2.3 G/DL (3.4-5.0) L Globulin 4.0 g/dL Albumin/Globulin Ratio 0.6 (1.0-2.7) L Objective: HEENT: Negative. NECK: Supple. No adenopathy. LUNGS: Moderate breath sounds. CARDIAC: S1, S2. Regular rate and rhythm. ABDOMEN: Soft. EXTREMITIES: No edema. Micro: Microbiology Date/Time Source Procedure Growth Status 04/01/19 08:35 Blood Blood Culture - Preliminary Staphylococcus Species Resulted 04/01/19 08:20 Blood Blood Culture - Preliminary NO GROWTH AFTER 48 HOURS Resulted 04/01/19 10:40 Nasal Nares MRSA Culture - Final NO METHICILLIN RESISTANT STAPH AUREUS... Complete 04/01/19 08:20 Urine,Clean Catch Urine Culture - Final Klebsiella Pneumoniae Providencia Rettgeri Complete 04/01/19 10:40 Rectum VRE Culture - Final NO VANCOMYCIN RESISTANT ENTEROCOCCUS ... Complete 04/01/19 10:40 Rectum - Final NO CARBAPENEM-RESISTANT ENTEROBACTERI... Complete Accucheck: 125 Wilder Hunter MD Apr 04, 2019 07:55
[2019-04-04] MEDS: Carvedilol 25mg Tab ORAL SCH ×2 (08:36→20:55)
[2019-04-04] MEDS: Tamsulosin 0.4mg cap ORAL SCH ×2 (08:37→18:11)
[2019-04-04] MEDS ORDERED: NS 500ML IVPB ONE (10:50)
[2019-04-04] MEDS ORDERED: Propofol 200mg/20ml IV ONE (11:00)
[2019-04-04] MEDS ORDERED: Lidocaine 1% MPF 10mg/ml 5ml ONE (11:00)
[2019-04-04] MEDS ORDERED: Midazolam 2mg/2ml Inj IVP PRN (11:00)
[2019-04-04] MEDS ORDERED: DiphenhydrAMINE 50mg/ml Inj IVP PRN (11:00)
[2019-04-04] MEDS ORDERED: Atropine Inj 1mg/10ml Syr IV PRN (11:00)
--- NOTE | 2019-04-04 11:02 | Pre-Procedure Note/Attestation ---
Pre-Procedure Note/Attestation Complete Prior to Procedure Planned Procedure: not applicable Procedure Narrative: egd Indications for Procedure Pre-Operative Diagnosis: UGIB Attestation I attest that I discussed the nature of the procedure; its benefits; risks and complications; and alternatives (and the risks and benefits of such alternatives ), prior to the procedure, with the patient (or the patient's legal outbound telemarketing representative). I attest that, if there was a reasonable possibility of needing a blood transfusion, the patient (or the patient's legal outbound telemarketing representative) was given the [facility] standardized written summary, pursuant to the [place] Blood Safety Act ([place] Health and Safety Code # 1645, as amended). I attest that I re-evaluated the patient just prior to the surgery and that there has been no change in the patient's H&P, except as documented below: Arlet Rubio MD Apr 04, 2019 11:02
--- NOTE | 2019-04-04 11:02 | General Progress Note ---
Assessment/Plan Assessment/Plan: Assessment - UGIB (but stools brown, not melena) - N/V, Hiccups - suspect GERD - failed swallow evaluation - Anemia, s/p transfusion - CP, mild elevation in troponin - Azotemia Recommendation - BID PPI - PRN zofran - Monitor CBC - transfuse PRN - EGD today Thank you Arlet Rubio MD Subjective Allergies: Coded Allergies: No Known Allergies (Unverified , 04/01/19) Subjective Above noted better still with some nausea for EGD today Objective Last 24 Hour Vital Signs Date Time Temp Pulse Resp B/P (MAP) Pulse Ox O2 Delivery O2 Flow Rate FiO2 04/04/19 08:36 77 179/99 04/04/19 08:36 77 179/99 04/04/19 08:00 97.9 77 20 179/99 (125) 94 04/04/19 05:52 125/94 04/04/19 04:00 98.1 74 18 125/94 (104) 98 04/04/19 04:00 Nasal Cannula 2.0 04/04/19 04:00 75 04/04/19 04:00 2.0 04/04/19 00:00 Nasal Cannula 2.0 04/04/19 00:00 75 04/04/19 00:00 98.8 77 18 155/98 (117) 97 04/03/19 22:00 98.1 70 18 137/62 (87) 98 04/03/19 22:00 78 145/75 04/03/19 21:58 78 145/75 04/03/19 21:57 145/75 04/03/19 21:00 2.0 04/03/19 21:00 98.2 70 18 136/62 (86) 98 04/03/19 20:00 98.6 78 18 145/75 (98) 97 04/03/19 20:00 Nasal Cannula 2.0 04/03/19 19:47 97 Nasal Cannula 2.0 28 04/03/19 18:00 76 20 150/75 (100) 98 04/03/19 17:13 162/85 04/03/19 17:00 77 18 139/81 (100) 100 04/03/19 16:00 87 04/03/19 16:00 2.0 04/03/19 16:00 Nasal Cannula 2.0 04/03/19 16:00 79 18 160/81 (107) 97 04/03/19 15:00 78 17 141/66 (91) 98 04/03/19 14:00 79 18 166/88 (114) 98 04/03/19 13:52 152/76 04/03/19 13:00 79 17 152/76 (101) 04/03/19 12:00 Nasal Cannula 2.0 04/03/19 12:00 98.9 79 19 150/73 (98) 98 04/03/19 12:00 80 04/03/19 12:00 2.0 Intake and Output 04/03/19 04/04/19 18:59 06:59 Intake Total 877.5 ml 706.55897 ml Output Total 1350 ml 800 ml Balance -472.5 ml -93.77423 ml Intake Oral 250 ml 10 ml IV Total 627.5 ml 696.07541 ml Output Urine Total 1350 ml 800 ml Laboratory Tests 04/04/19 05:50: White Blood Count 16.5H, Red Blood Count 3.95L, Hemoglobin 11.8L, Hematocrit 35.2L, Mean Corpuscular Volume 89, Mean Corpuscular Hemoglobin 29.8, Mean Corpuscular Hemoglobin Concent 33.4, Red Cell Distribution Width 13.4, Platelet Count 463H, Mean Platelet Volume 5.6L, Neutrophils (%) (Auto) , Lymphocytes (%) (Auto) , Monocytes (%) (Auto) , Eosinophils (%) (Auto) , Basophils (%) (Auto) , Differential Total Cells Counted 100, Neutrophils % (Manual) 89H, Lymphocytes % (Manual) 5L, Monocytes % (Manual) 6, Eosinophils % (Manual) 0, Basophils % ( Manual) 0, Band Neutrophils 0, Platelet Estimate IncreasedH, Platelet Morphology Normal, Sodium Level 156H, Potassium Level 3.3L, Chloride Level 122H , Carbon Dioxide Level 20L, Anion Gap 14, Blood Urea Nitrogen 38H, Creatinine 2.2H, Estimat Glomerular Filtration Rate 31.6, Glucose Level 137H, Uric Acid 8.8H, Calcium Level 8.5, Phosphorus Level 3.5, Magnesium Level 2.1, Total Bilirubin 0.6, Aspartate Amino Transf (AST/SGOT) 12L, Alanine Aminotransferase ( ALT/SGPT) 23, Alkaline Phosphatase 96, Total Protein 6.3L, Albumin 2.3L, Globulin 4.0, Albumin/Globulin Ratio 0.6L Height (Feet): 5 Height (Inches): 8.00 Weight (Pounds): 158 Objective WDWN man NCAT supple CTA RR abd soft NT ND no edema Arlet Rubio MD Apr 04, 2019 11:02
--- NOTE | 2019-04-04 11:14 | Anethesia Preoperative Eval ---
Anesthesia Pre-op PMH/ROS General Date of Evaluation: Apr 04, 2019 Time of Evaluation: 10:49 Anesthesiologist: mati ASA Score: ASA 4 Mallampati Score Class I : Soft palate, uvula, fauces, pillars visible Class II: Soft palate, uvula, fauces visible Class III: Soft palate, base of uvula visible Class IV: Only hard plate visible Mallampati Classification: Class II Surgeon: celine Diagnosis: ugib Surgical Procedure: egd Anesthesia History: none Social History: smoking - nonsmoker Family History: no anesthesia problems Allergies: Coded Allergies: No Known Allergies (Unverified , 04/01/19) Medications: see eMAR Patient NPO?: Yes Past Medical History Cardiovascular: Reports: HTN, other - congestive heart failure Gastrointestinal/Genitourinary: Reports: GERD, CRI Neurologic/Psychiatric: Reports: CVA Endocrine: Reports: DM Anesthesia Pre-op Phys. Exam Physician Exam Last Vital Signs Date Time Temp Pulse Resp B/P (MAP) Pulse Ox O2 Delivery O2 Flow Rate FiO2 04/04/19 08:36 77 179/99 04/04/19 08:00 97.9 20 94 04/04/19 04:00 Nasal Cannula 2.0 04/03/19 19:47 28 Constitutional: NAD Neurologic: CN 2-12 intact Cardiovascular: RRR Respiratory: CTA Gastrointestinal: S/NT/ND Airway Exam Mallampati Score: Class II MO: limited Neck: flexible TMD: 2fb ROM: limited Anesthesia Pre-op A/P Labs Hematology Test 04/04/19 05:50 White Blood Count 16.5 K/UL (4.8-10.8) H Red Blood Count 3.95 M/UL (4.70-6.10) L Hemoglobin 11.8 G/DL (14.2-18.0) L Hematocrit 35.2 % (42.0-52.0) L Mean Corpuscular Volume 89 FL (80-99) Mean Corpuscular Hemoglobin 29.8 PG (27.0-31.0) Mean Corpuscular Hemoglobin Concent 33.4 G/DL (32.0-36.0) Red Cell Distribution Width 13.4 % (11.6-14.8) Platelet Count 463 K/UL (150-450) H Mean Platelet Volume 5.6 FL (6.5-10.1) L Neutrophils (%) (Auto) % (45.0-75.0) Lymphocytes (%) (Auto) % (20.0-45.0) Monocytes (%) (Auto) % (1.0-10.0) Eosinophils (%) (Auto) % (0.0-3.0) Basophils (%) (Auto) % (0.0-2.0) Differential Total Cells Counted 100 Neutrophils % (Manual) 89 % (45-75) H Lymphocytes % (Manual) 5 % (20-45) L Monocytes % (Manual) 6 % (1-10) Eosinophils % (Manual) 0 % (0-3) Basophils % (Manual) 0 % (0-2) Band Neutrophils 0 % (0-8) Platelet Estimate Increased H Platelet Morphology Normal Chemistry Test 04/04/19 05:50 Sodium Level 156 MMOL/L (136-145) H Potassium Level 3.3 MMOL/L (3.5-5.1) L Chloride Level 122 MMOL/L (98-107) H Carbon Dioxide Level 20 MMOL/L (21-32) L Anion Gap 14 mmol/L (5-15) Blood Urea Nitrogen 38 mg/dL (7-18) H Creatinine 2.2 MG/DL (0.55-1.30) H Estimat Glomerular Filtration Rate 31.6 mL/min (>60) Glucose Level 137 MG/DL (74-106) H Uric Acid 8.8 MG/DL (2.6-7.2) H Calcium Level 8.5 MG/DL (8.5-10.1) Phosphorus Level 3.5 MG/DL (2.5-4.9) Magnesium Level 2.1 MG/DL (1.8-2.4) Total Bilirubin 0.6 MG/DL (0.2-1.0) Aspartate Amino Transf (AST/SGOT) 12 U/L (15-37) L Alanine Aminotransferase (ALT/SGPT) 23 U/L (12-78) Alkaline Phosphatase 96 U/L (46-116) Total Protein 6.3 G/DL (6.4-8.2) L Albumin 2.3 G/DL (3.4-5.0) L Globulin 4.0 g/dL Albumin/Globulin Ratio 0.6 (1.0-2.7) L Studies Pre-op Studies: EKG - sinus rhythm with short pr interval Risk Assessment & Plan Assessment: [email or web address] Plan: mac Status Change Before Surgery: No Pre-Antibiotics Drug: Manisha Guadalupe MD Apr 04, 2019 11:14
--- NOTE | 2019-04-04 11:21 | Endoscopy Procedure Note ---
Endoscopy Procedure Note General Indication for Procedure: UGIB Procedures Performed: EGD Operative Findings/Diagnosis: SEVERE ULCERATIVE ESOPHAGITIS - biopsied Specimen: yes Pt Tolerated Procedure Well: Yes Estimated Blood Loss: none Anesthesia Anesthesiologist: Bassam Kenyon Anesthesia: regional, MAC Medications Medication Given: see anesthesia record Inserted Devices Implant(s) used?: No GI Core Measures 50 yrs or older w/o bx or poly: Not Applicable 10yrs. F/U recommended: Not Applicable If not recommended, why?: Arlet Rubio MD Apr 04, 2019 11:21
--- NOTE | 2019-04-04 11:23 | Brief Operative Note ---
Immediate Post Operative Note Operative Note Chief Complaint: UGIB Pre-op Diagnosis: UGIB Procedure: EGD / bx Post-op Diagnosis: SEVERE ULCERATIVE ESOPHAGITIS Surgeon: Joanne Anesthesiologist: Bassam Kenyon Anesthesia: MAC Specimen: yes Complications: none Condition: stable Fluids: per anesthesia Estimated Blood Loss: none Drains: none Implant(s) used?: No Arlet Rubio MD Apr 04, 2019 11:23
--- NOTE | 2019-04-04 11:57 | Immediate Post-Op Evaluation ---
Immediate Post-Op Evalulation Immediate Post-Op Evalulation Procedure: egd w/bx Date of Evaluation: Apr 04, 2019 Time of Evaluation: 11:48 IV Fluids: 100ml 0.9ns Blood Products: none Estimated Blood Loss: negligible Blood Pressure Systolic: 168 Blood Pressure Diastolic: 93 Pulse Rate: 81 Respiratory Rate: 18 O2 Sat by Pulse Oximetry: 100 Temperature (Fahrenheit): 98.8 Pain Score (1-10): 0 Nausea: No Vomiting: No Complications none Patient Status: awake, reacts, patent Hydration Status: adequate Drug: Manisha Guadalupe MD Apr 04, 2019 11:57
--- NOTE | 2019-04-04 11:59 | 48 Hour Post Anesthesia Eval ---
Post Anesthesia Evaluation Procedure: egd w/bx Date of Evaluation: Apr 04, 2019 Time of Evaluation: 11:50 Blood Pressure Systolic: 170 0: 89 Pulse Rate: 81 Respiratory Rate: 18 Temperature (Fahrenheit): 98.8 O2 Sat by Pulse Oximetry: 100 Airway: patent Nausea: No Vomiting: No Pain Intensity: 0 Hydration Status: adequate Cardiopulmonary Status: stable Mental Status/LOC: patient returned to baseline Post-Anesthesia Complications: none Follow-up care needed: N/A Manisha Sofia MD Apr 04, 2019 11:59
--- NOTE | 2019-04-04 12:32 | Diagnostic Imaging Report ---
APPROVED REPORT CPT Code: 75925 Present Symptoms Comments: Right arm pain RIGHT UPPER EXTREMITY: Venous imaging reveals patency of the internal jugular, subclavian, axillary and brachial veins. The cephalic and basilic veins are also patent. Doppler indicates normal spontaneous flow within these venous segments.
--- NOTE | 2019-04-04 12:33 | Diagnostic Imaging Report ---
APPROVED REPORT CPT Code: 03841 Present Symptoms Comments: Chest pain BILATERAL: Imaging reveals a patent deep venous system bilaterally. There is no evidence of thrombus within the common femoral, superficial femoral, popliteal or tibial segments. The greater saphenous veins are within normal limits. Doppler indicates normal spontaneous flow within these segments.
--- NOTE | 2019-04-04 12:43 | NUR ---
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 Count 463, Na 156, BUN 38, CR 2.2 IS:ZOSYN 110ml IVPB K-DUR 20meq FLOMAX 0.4mg COREG 25mg NIFEDIPINE 60mg LINEZOLID 300ml IVPB NS 500ml IVPB TELE STATUS
--- NOTE | 2019-04-04 12:52 | NUR ---
*-* INSURANCE *-* ALL CLINICALS AND REVIEWS HAVE BEEN FAXED TO: MARY/BRYAN NO RN FIELD CASE MANAGER ASSIGNED AT THIS TIME PLEASE FAX THE REVIEW/CLINICAL P- [phone] F- [phone]...REVIEW/CLINICAL
--- NOTE | 2019-04-04 12:52 | NUR ---
NURSE NOTES: Patient refused Bicitra
--- NOTE | 2019-04-04 13:19 | Infectious Diseases Prog Note ---
Assessment/Plan Assessment/Plan A 1. Staph Bacteremia 2. Providencia & Klebsiella UTI 3. shock resolved 4. leucocytosis improving 5. Hypernatremia 6. Anemia 7. Erosive esophagitis P 1. continue linezolid, 2. change Zosyn to Rocephin 2. will follow up cultures Subjective ROS Limited/Unobtainable: Yes Gastrointestinal/Abdominal: Reports: other - had EGD in am Allergies: Coded Allergies: No Known Allergies (Unverified , 04/01/19) Objective Vital Signs Last 24 Hour Vital Signs Date Time Temp Pulse Resp B/P (MAP) Pulse Ox O2 Delivery O2 Flow Rate FiO2 04/04/19 12:40 164/87 04/04/19 12:39 164/87 04/04/19 12:15 98.1 74 20 164/87 (112) 95 04/04/19 11:59 81 18 100 04/04/19 11:57 81 18 100 04/04/19 11:36 98.8 72 15 168/93 100 Simple Mask 6 04/04/19 09:42 98 Nasal Cannula 2.0 28 04/04/19 08:36 77 179/99 04/04/19 08:36 77 179/99 04/04/19 08:00 97.9 77 20 179/99 (125) 94 04/04/19 08:00 77 04/04/19 05:52 125/94 04/04/19 04:00 98.1 74 18 125/94 (104) 98 04/04/19 04:00 Nasal Cannula 2.0 04/04/19 04:00 75 04/04/19 04:00 2.0 04/04/19 00:00 Nasal Cannula 2.0 04/04/19 00:00 75 04/04/19 00:00 98.8 77 18 155/98 (117) 97 04/03/19 22:00 98.1 70 18 137/62 (87) 98 04/03/19 22:00 78 145/75 04/03/19 21:58 78 145/75 04/03/19 21:57 145/75 04/03/19 21:00 2.0 04/03/19 21:00 98.2 70 18 136/62 (86) 98 04/03/19 20:00 98.6 78 18 145/75 (98) 97 04/03/19 20:00 Nasal Cannula 2.0 04/03/19 19:47 97 Nasal Cannula 2.0 28 04/03/19 18:00 76 20 150/75 (100) 98 04/03/19 17:13 162/85 04/03/19 17:00 77 18 139/81 (100) 100 04/03/19 16:00 87 04/03/19 16:00 2.0 04/03/19 16:00 Nasal Cannula 2.0 04/03/19 16:00 79 18 160/81 (107) 97 04/03/19 15:00 78 17 141/66 (91) 98 04/03/19 14:00 79 18 166/88 (114) 98 04/03/19 13:52 152/76 Height (Feet): 5 Height (Inches): 8.00 Weight (Pounds): 158 General Appearance: no acute distress HEENT: mucous membranes moist Cardiovascular: normal rate Abdomen: soft, non tender Extremities: no edema Neurologic/Psychiatric: other - sleeping Laboratory Tests Test 04/04/19 05:50 White Blood Count 16.5 K/UL (4.8-10.8) H Red Blood Count 3.95 M/UL (4.70-6.10) L Hemoglobin 11.8 G/DL (14.2-18.0) L Hematocrit 35.2 % (42.0-52.0) L Mean Corpuscular Volume 89 FL (80-99) Mean Corpuscular Hemoglobin 29.8 PG (27.0-31.0) Mean Corpuscular Hemoglobin Concent 33.4 G/DL (32.0-36.0) Red Cell Distribution Width 13.4 % (11.6-14.8) Platelet Count 463 K/UL (150-450) H Mean Platelet Volume 5.6 FL (6.5-10.1) L Neutrophils (%) (Auto) % (45.0-75.0) Lymphocytes (%) (Auto) % (20.0-45.0) Monocytes (%) (Auto) % (1.0-10.0) Eosinophils (%) (Auto) % (0.0-3.0) Basophils (%) (Auto) % (0.0-2.0) Differential Total Cells Counted 100 Neutrophils % (Manual) 89 % (45-75) H Lymphocytes % (Manual) 5 % (20-45) L Monocytes % (Manual) 6 % (1-10) Eosinophils % (Manual) 0 % (0-3) Basophils % (Manual) 0 % (0-2) Band Neutrophils 0 % (0-8) Platelet Estimate Increased H Platelet Morphology Normal Sodium Level 156 MMOL/L (136-145) H Potassium Level 3.3 MMOL/L (3.5-5.1) L Chloride Level 122 MMOL/L (98-107) H Carbon Dioxide Level 20 MMOL/L (21-32) L Anion Gap 14 mmol/L (5-15) Blood Urea Nitrogen 38 mg/dL (7-18) H Creatinine 2.2 MG/DL (0.55-1.30) H Estimat Glomerular Filtration Rate 31.6 mL/min (>60) Glucose Level 137 MG/DL (74-106) H Uric Acid 8.8 MG/DL (2.6-7.2) H Calcium Level 8.5 MG/DL (8.5-10.1) Phosphorus Level 3.5 MG/DL (2.5-4.9) Magnesium Level 2.1 MG/DL (1.8-2.4) Total Bilirubin 0.6 MG/DL (0.2-1.0) Aspartate Amino Transf (AST/SGOT) 12 U/L (15-37) L Alanine Aminotransferase (ALT/SGPT) 23 U/L (12-78) Alkaline Phosphatase 96 U/L (46-116) Total Protein 6.3 G/DL (6.4-8.2) L Albumin 2.3 G/DL (3.4-5.0) L Globulin 4.0 g/dL Albumin/Globulin Ratio 0.6 (1.0-2.7) L Current Medications Medications (Trade) Dose Ordered Sig/Josh Route PRN Reason Start Time Stop Time Status Last Admin Dose Admin Acetaminophen (Tylenol) 650 mg Q4H PRN ORAL Mild Pain (Pain Scale 1-3) 04/03/19 19:00 05/01/19 18:59 Acetaminophen (Tylenol) 650 mg Q4H PRN ORAL T>100.5 04/03/19 19:45 05/01/19 15:44 Al Hydroxide/Mg Hydroxide (Mylanta) 15 ml Q1H PRN ORAL gi upset 04/04/19 11:00 04/04/19 19:00 Albuterol Sulfate (Proventil) 2.5 mg Q4HR PRN HHN Shortness of Breath 04/03/19 21:00 04/06/19 21:14 Atropine Sulfate (Atropine) 0.5 mg Q5M PRN IV bpm less than 45 04/04/19 11:00 04/04/19 19:00 Carvedilol (Coreg) 25 mg EVERY 12 HOURS ORAL 04/03/19 21:00 05/03/19 20:59 04/04/19 08:36 Clonidine HCl (Catapres Tab) 0.1 mg Q4H PRN ORAL For High Blood Pressure 04/03/19 19:00 05/03/19 18:59 04/04/19 12:40 Dextrose 1,000 ml @ 125 mls/hr Q8H IV 04/04/19 19:00 05/04/19 18:59 Dextrose (Dextrose 50%) 25 ml Q30M PRN IV Hypoglycemia 04/03/19 19:15 05/01/19 15:44 Dextrose (Dextrose 50%) 50 ml Q30M PRN IV Hypoglycemia 04/03/19 19:15 05/01/19 15:44 Diphenhydramine HCl (Benadryl) 25 mg Q15M PRN IVP Itching 04/04/19 11:00 04/04/19 19:00 Famotidine (Pepcid I.v.) 20 mg DAILY IVP 04/04/19 13:00 05/04/19 12:59 04/04/19 12:40 Hydralazine HCl (Apresoline) 5 mg Q30M PRN IV SBP>160 OR___/DBP>90 OR___ 04/04/19 11:00 04/04/19 19:00 Hydralazine HCl (Apresoline) 100 mg Q8HR ORAL 04/03/19 22:00 05/02/19 11:59 04/04/19 12:39 Linezolid 300 ml @ 300 mls/hr Q12HR IVPB 04/03/19 21:00 04/10/19 20:59 04/04/19 08:38 Midazolam HCl (Versed 2mg/2ml vial) 1 mg Q15M PRN IVP For Anxiety 04/04/19 11:00 04/04/19 19:00 Nifedipine (Procardia XL) 60 mg Q12HR ORAL 04/03/19 21:00 05/02/19 08:59 04/04/19 08:36 Ondansetron HCl (Zofran) 4 mg Q1H PRN IVP Nausea & Vomiting 04/04/19 11:00 04/04/19 19:00 Ondansetron HCl (Zofran) 4 mg Q4H PRN IVP Nausea & Vomiting 04/03/19 19:00 05/02/19 18:59 Pantoprazole (Protonix) 40 mg EVERY 12 HOURS ORAL 04/03/19 21:00 05/02/19 08:59 04/04/19 08:36 Piperacillin Sod/ Tazobactam Sod 3.375 gm/Sodium Chloride 110 ml @ 27.5 mls/hr Q12H IVPB 04/04/19 04:00 04/08/19 19:59 04/04/19 04:22 Potassium Chloride (K-Dur) 20 meq TWICE A DAY ORAL 04/04/19 09:00 05/04/19 08:59 04/04/19 08:37 Sodium Citrate (Bicitra) 30 ml EVERY 6 HOURS ORAL 04/04/19 00:00 05/02/19 11:59 04/04/19 01:03 Tamsulosin HCl (Flomax) 0.4 mg BID ORAL 04/04/19 09:00 05/03/19 08:59 04/04/19 08:37 Heri Jiménez MD Apr 04, 2019 13:18
[2019-04-04] MEDS ORDERED: D5 1/2NS 1000ml IV ONE (13:48)
[2019-04-04] MEDS ORDERED: NS 500ML ONE (13:48)
[2019-04-04] MEDS ORDERED: Tubing IV Secondary IV ONE (13:48)
--- NOTE | 2019-04-04 14:49 | NUR ---
SWALLOW/SPEECH THERAPY NOTE: SWALLOW AND SPEECH/LANGUAGE/COGNITIVE STATUS: PATIENT HAD A EGD WITH BX TODAY. HAS SEVERE ULCERATIVE ESOPHAGITIS AND GASTRITIS SO WILL LIKELY NEED A BLAND DIET WHEN CLEARED FOR SOLIDS. D/W WITH MARIANNA CANALES. PT ON CLEAR LIQUIDS FOR GI ISSUES AND WITH GOOD INTAKE. HE IS INCONSISTENTLY COUGHING ON THIN LIQUIDS AND JELLO PER PATIENT. PER DR HOLLY, OK TO CHANGE HER TO NECTAR THICK LIQUIDS ON CLEAR LIQUID DIET. PATIENT TOOK NECTAR THICK LIQUIDS TSP/CUP W/O OVERT ASPIRATION BUT DOESN'T LIKE IT. OK WITH TSP THIN TRIALS SO PATIENT ENCOURAGED TO DRINK NECTAR THICK LIQUID VIA CUP OR IF HE CAN'T THIN LIQUIDS OK WITH TSP UNTIL SWALLOW STUDY. PATIENT SHOULD HAVE A MOD BARIUM SWALLOW STUDY TO FURTHER ASSESS SWALLOW, DETERMINE SILENT ASPIRATION RISK AND ETIOLOGY, AND ATTEMPT TRIAL TX TECHNIQUES (SEEN AT [facility] 12/2018 WHEN HE HAD STROKE BUT NO REPORT REGARDING VIDEO AND PATIENT CANNOT RECALL IF HE HAD A STUDY AND HE DID NOT RECALL NAME OF PRIOR HOSPITAL NOR THIS HOSPITAL. PLAN: COMPLETE MOD BARIUM SWALLOW STUDY COMPLETE SPEECH/LANGUAGE AND COGNITIVE EVAL D/W LLUVIA AND DR HOLLY Addendum: 04/05/19 at 1410 by KAILYN LOVING CORRECTION CHANGE "HIM"
[2019-04-04] MEDS: cefTRIAXone 1 GM in D5W 55 ML IVPB SCH (15:49)
--- NOTE | 2019-04-04 16:00 | Operative Note - Dictated ---
DATE OF OPERATION: 04/04/2019 GASTROENTEROLOGY PROCEDURE REPORT PRE-ENDOSCOPIC DIAGNOSIS: Upper gastrointestinal bleeding. POST-ENDOSCOPIC DIAGNOSIS: Severe ulcerative esophagitis. SURGEON: Arlet Rubio M.D. ANESTHESIOLOGIST: Dr. Magana. PROCEDURE IN DETAIL: The procedure, its risks, indications, alternatives, and possible complications were explained and informed consent was obtained. The diagnostic upper endoscope was introduced through the oropharynx and advanced to the duodenum. The mucosa were examined carefully. Examination of the upper gastrointestinal mucosa revealed severe circumferential ulcerative esophagitis starting from the gastroesophageal junction and extending well beyond the mid esophagus. Biopsies were sent to pathology as well as for viral cultures. There was no active bleeding. The endoscope was removed and the patient was sent to Recovery in good condition. COMPLICATIONS: None. RECOMMENDATIONS: 1. Continue proton pump inhibitor twice daily. 2. Add intravenous histamine 2 francisco twice daily. 3. Follow up cultures and viral serologies. 4. Begin clear liquid diet trial. Arlet Rubio M.D. DR: GERMAINE JOB#: [id number] CC:
--- NOTE | 2019-04-04 16:29 | Nephrology Progress Note ---
Assessment/Plan Problem List: (1) Renal failure (ARF), acute on chronic Assessment: Cr lowering (2) Anemia (3) Hypertensive kidney disease (4) Diabetic nephropathy (5) UTI (urinary tract infection) Assessment Renal failure: Likely Acute on Chronic Long history of IDDM Likely Diabetic Nephropathy, Proteinuria, HypoAlbuminemia HTN Anemia, GI bleed likely- s/p 3 units PRBCs transfusion UTI Plan plan; change IV to D5 add flomax replace Labetolol with Coreg Avoid nephrotoxics Adjust BP meds- Kidney [facility]ASTON- noted 2D Echo- noted PRN BP meds Urine studies adjust Zosyn dose for renal failure per orders St eval Subjective ROS Limited/Unobtainable: No Constitutional: Reports: malaise, weakness Objective Objective Last 24 Hour Vital Signs Date Time Temp Pulse Resp B/P (MAP) Pulse Ox O2 Delivery O2 Flow Rate FiO2 04/04/19 12:40 164/87 04/04/19 12:39 164/87 04/04/19 12:15 98.1 74 20 164/87 (112) 95 04/04/19 12:00 73 04/04/19 11:59 81 18 100 04/04/19 11:57 81 18 100 04/04/19 11:55 98.5 73 14 162/89 100 Room Air 04/04/19 11:45 73 16 163/91 100 Room Air 04/04/19 11:40 70 14 168/82 100 Room Air 04/04/19 11:36 98.8 72 15 168/93 100 Simple Mask 6 04/04/19 09:42 98 Nasal Cannula 2.0 28 04/04/19 08:36 77 179/99 04/04/19 08:36 77 179/99 04/04/19 08:00 97.9 77 20 179/99 (125) 94 04/04/19 08:00 77 04/04/19 05:52 125/94 04/04/19 04:00 98.1 74 18 125/94 (104) 98 04/04/19 04:00 Nasal Cannula 2.0 04/04/19 04:00 75 04/04/19 04:00 2.0 04/04/19 00:00 Nasal Cannula 2.0 04/04/19 00:00 75 04/04/19 00:00 98.8 77 18 155/98 (117) 97 04/03/19 22:00 98.1 70 18 137/62 (87) 98 04/03/19 22:00 78 145/75 04/03/19 21:58 78 145/75 04/03/19 21:57 145/75 04/03/19 21:00 2.0 04/03/19 21:00 98.2 70 18 136/62 (86) 98 04/03/19 20:00 98.6 78 18 145/75 (98) 97 04/03/19 20:00 Nasal Cannula 2.0 04/03/19 19:47 97 Nasal Cannula 2.0 28 04/03/19 18:00 76 20 150/75 (100) 98 04/03/19 17:13 162/85 04/03/19 17:00 77 18 139/81 (100) 100 Intake and Output 04/03/19 04/04/19 19:00 07:00 Intake Total 877.5 ml 734.94109 ml Output Total 1150 ml 800 ml Balance -272.5 ml -65.77038 ml Intake Oral 250 ml 10 ml IV Total 627.5 ml 724.17373 ml Output Urine Total 1150 ml 800 ml Laboratory Tests 04/04/19 05:50: White Blood Count 16.5H, Red Blood Count 3.95L, Hemoglobin 11.8L, Hematocrit 35.2L, Mean Corpuscular Volume 89, Mean Corpuscular Hemoglobin 29.8, Mean Corpuscular Hemoglobin Concent 33.4, Red Cell Distribution Width 13.4, Platelet Count 463H, Mean Platelet Volume 5.6L, Neutrophils (%) (Auto) , Lymphocytes (%) (Auto) , Monocytes (%) (Auto) , Eosinophils (%) (Auto) , Basophils (%) (Auto) , Differential Total Cells Counted 100, Neutrophils % (Manual) 89H, Lymphocytes % (Manual) 5L, Monocytes % (Manual) 6, Eosinophils % (Manual) 0, Basophils % ( Manual) 0, Band Neutrophils 0, Platelet Estimate IncreasedH, Platelet Morphology Normal, Sodium Level 156H, Potassium Level 3.3L, Chloride Level 122H , Carbon Dioxide Level 20L, Anion Gap 14, Blood Urea Nitrogen 38H, Creatinine 2.2H, Estimat Glomerular Filtration Rate 31.6, Glucose Level 137H, Uric Acid 8.8H, Calcium Level 8.5, Phosphorus Level 3.5, Magnesium Level 2.1, Total Bilirubin 0.6, Aspartate Amino Transf (AST/SGOT) 12L, Alanine Aminotransferase ( ALT/SGPT) 23, Alkaline Phosphatase 96, Total Protein 6.3L, Albumin 2.3L, Globulin 4.0, Albumin/Globulin Ratio 0.6L Height (Feet): 5 Height (Inches): 8.00 Weight (Pounds): 158 General Appearance: no apparent distress Cardiovascular: normal rate Respiratory/Chest: decreased breath sounds Abdomen: distended Ismael Banegas MD Apr 04, 2019 16:29
--- NOTE | 2019-04-04 19:25 | NUR ---
NURSE NOTES: Received report from Sophie RN, pt. in bed awake and alert x's 3-4- able to make needs known, no signs or symptoms of acute cardiac or respiratory distress noted, bed in lowest position and call light within easy reach, bed alarm on, side rails up x's3- safety brakes engaged, pt. appears to be sating well on room air at 95%- no distress noted, pt. has Noriega intact and draining to gravity, pt. appears to be clean and dry, SCDs on, RT. hand 22G IV intact and patent running D5W at 125mls/hr, safety measures continued, will continue with plan of care.
--- NOTE | 2019-04-04 19:40 | NUR ---
HAND-OFF: Report given to Deepa /RN, Patient in stable condition. Endorsed plan of care.
[2019-04-05] VITALS (9 sets, daily range): BP systolic 146–196; BP diastolic 77–98
--- NOTE | 2019-04-05 02:53 | NUR ---
HAND-OFF: Report given to Stewart TEIXEIRA, pt. remains stable and no signs of distress noted.
[2019-04-05] MEDS: HydrALAZINE 50mg tab ORAL SCH ×3 (05:30→21:08)
[2019-04-05] MEDS ORDERED: Tubing IV Secondary IV ONE (06:12)
[2019-04-05] MEDS ORDERED: NS 275ml ONE (06:12)
--- NOTE | 2019-04-05 07:15 | NUR ---
NURSE NOTES: Received report from LLUVIA William. Pt. is in bed in high alas's position eating breakfast. Pt is AAO x 3, able to make needs known, no signs or symptoms of acute cardiac or respiratory distress noted. Bed in lowest position and call light within easy reach, bed alarm on, side rails up x's3- safety brakes engaged. Patient is on room air breathing even and unlabored. Patient is on athletic monitor. Pt. has Noriega intact and draining to gravity. Patient on SCDs on. RT. hand 22G IV intact and patent running D5W at 125mls/hr, safety measures continued, will continue with plan of care.
--- NOTE | 2019-04-05 07:42 | NUR ---
HAND-OFF: Report given to Joaquim TEIXEIRA. Plan of care endorsed.
[2019-04-05 08:43] LABS: HEMATOCRIT 35.8 % (42.0-52.0); MEAN CORPUSCULAR VOLUME 90 FL (80-99); PLATELET COUNT 396 K/UL (150-450); RED BLOOD COUNT 3.99 M/UL (4.70-6.10); RED CELL DISTRIBUTION WIDTH 13.5 % (11.6-14.8); WHITE BLOOD COUNT 14.5 K/UL (4.8-10.8)
[2019-04-05 09:03] LABS: PHOSPHORUS 3.2 MG/DL (2.5-4.9)
[2019-04-05 09:11] LABS: ALANINE AMINOTRANSFERASE 17 U/L (12-78); ALBUMIN 2.2 G/DL (3.4-5.0); ALBUMIN/GLOBULIN RATIO 0.6 (1.0-2.7); ALKALINE PHOSPHATASE 82 U/L (46-116); ANION GAP 13 mmol/L (5-15); ASPARTATE AMINO TRANSFERASE 13 U/L (15-37); BILIRUBIN,TOTAL 0.4 MG/DL (0.2-1.0); BLOOD UREA NITROGEN 31 mg/dL (7-18); CALCIUM 8.1 MG/DL (8.5-10.1); CARBON DIOXIDE 18 MMOL/L (21-32); CHLORIDE 118 MMOL/L (98-107); PHOSPHORUS 2.9 MG/DL (2.5-4.9); POTASSIUM 3.2 MMOL/L (3.5-5.1); SODIUM 149 MMOL/L (136-145)
[2019-04-05] MEDS: Tamsulosin 0.4mg cap ORAL SCH ×2 (09:14→17:01)
[2019-04-05] MEDS: Carvedilol 25mg Tab ORAL SCH ×2 (09:14→21:08)
[2019-04-05] MEDS: Sodium Citrate 30ml ORAL SCH ×3 (09:15→17:00)
--- NOTE | 2019-04-05 09:31 | NUR ---
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
--- NOTE | 2019-04-05 10:06 | Nephrology Progress Note ---
Assessment/Plan Problem List: (1) Renal failure (ARF), acute on chronic Assessment: Cr lowering (2) Anemia (3) Hypertensive kidney disease (4) Diabetic nephropathy (5) UTI (urinary tract infection) Assessment Renal failure: Likely Acute on Chronic Long history of IDDM Likely Diabetic Nephropathy, Proteinuria, HypoAlbuminemia HTN Anemia, GI bleed likely- s/p 3 units PRBCs transfusion UTI Plan plan; change IV to D5 K supplement add flomax replace Labetolol with Coreg Avoid nephrotoxics Adjust BP meds- Kid[facility]- noted 2D Echo- noted PRN BP meds Urine studies adjust Zosyn dose for renal failure per orders St eval Subjective ROS Limited/Unobtainable: No Constitutional: Reports: malaise Objective Objective Last 24 Hour Vital Signs Date Time Temp Pulse Resp B/P (MAP) Pulse Ox O2 Delivery O2 Flow Rate FiO2 04/05/19 09:14 69 151/81 04/05/19 09:14 69 151/81 04/05/19 08:28 97 Nasal Cannula 2.0 28 04/05/19 08:28 69 18 97 Nasal Cannula 2.0 28 04/05/19 08:02 98.5 70 20 151/81 (104) 96 04/05/19 07:55 71 04/05/19 05:30 181/78 04/05/19 05:30 181/78 04/05/19 05:22 98.5 78 18 181/78 (112) 95 04/05/19 04:00 98.5 18 181/78 (112) 95 04/05/19 04:00 70 04/05/19 02:00 148/79 (102) 04/05/19 00:44 167/93 04/05/19 00:00 97.8 75 18 167/93 (117) 96 04/05/19 00:00 69 04/04/19 22:02 146/76 04/04/19 22:00 74 146/76 (99) 04/04/19 20:56 78 173/94 04/04/19 20:55 78 173/94 04/04/19 20:00 97.8 78 16 173/94 (120) 95 04/04/19 20:00 72 04/04/19 19:16 97 Nasal Cannula 2.0 28 04/04/19 19:16 72 18 97 Nasal Cannula 2.0 28 04/04/19 16:00 72 04/04/19 16:00 97.7 70 21 130/84 (99) 96 04/04/19 12:40 164/87 04/04/19 12:39 164/87 04/04/19 12:15 98.1 74 20 164/87 (112) 95 04/04/19 12:00 73 04/04/19 11:59 81 18 100 04/04/19 11:57 81 18 100 04/04/19 11:55 98.5 73 14 162/89 100 Room Air 04/04/19 11:45 73 16 163/91 100 Room Air 04/04/19 11:40 70 14 168/82 100 Room Air 04/04/19 11:36 98.8 72 15 168/93 100 Simple Mask 6 Intake and Output 04/04/19 04/05/19 19:00 07:00 Intake Total 575 ml 1175 ml Output Total 1150 ml Balance -575 ml 1175 ml Intake Oral 0 ml IV Total 325 ml 1175 ml Blood Product 250 ml Output Urine Total 1100 ml Emesis 50 ml # Voids 67 # Bowel Movements 2 Laboratory Tests 04/05/19 01:00: Urine Eosinophils None seen 04/05/19 07:37: White Blood Count 14.5H, Red Blood Count 3.99L, Hemoglobin 12.0L, Hematocrit 35.8L, Mean Corpuscular Volume 90, Mean Corpuscular Hemoglobin 30.0, Mean Corpuscular Hemoglobin Concent 33.4, Red Cell Distribution Width 13.5, Platelet Count 396, Mean Platelet Volume 5.4L, Neutrophils (%) (Auto) , Lymphocytes (%) ( Auto) , Monocytes (%) (Auto) , Eosinophils (%) (Auto) , Basophils (%) (Auto) , Neutrophils % (Manual) [Pending], Lymphocytes % (Manual) [Pending], Platelet Estimate [Pending], Platelet Morphology [Pending], Sodium Level 149H, Potassium Level 3.2L, Chloride Level 118H, Carbon Dioxide Level 18L, Anion Gap 13, Blood Urea Nitrogen 31H, Creatinine 2.0H, Estimat Glomerular Filtration Rate 35.3, Glucose Level 206H, Calcium Level 8.1L, Phosphorus Level 3.2, Magnesium Level 2.1, Total Bilirubin 0.4, Aspartate Amino Transf (AST/SGOT) 13L, Alanine Aminotransferase (ALT/SGPT) 17, Alkaline Phosphatase 82, C-Reactive Protein, Quantitative 3.3H, Total Protein 6.0L, Albumin 2.2L, Globulin 3.8, Albumin/ Globulin Ratio 0.6L Height (Feet): 5 Height (Inches): 8.00 Weight (Pounds): 162 General Appearance: no apparent distress Cardiovascular: normal rate Respiratory/Chest: decreased breath sounds Abdomen: distended Ismael Banegas MD Apr 05, 2019 10:06
--- NOTE | 2019-04-05 10:46 | Infectious Diseases Prog Note ---
"Assessment/Plan Assessment/Plan antibiotics : linezolid, ceftriaxone A 1. klebsiella | providencia UTI 2. + blood cultures with staph epidermidis likely contaminated 3. shock resolved 4. leucocytosis improving 5. CVA 6. renal failure improving P 1. continue ceftriaxone 2 more days 2. d/c linezolid 3. will follow up cultures Subjective ROS Limited/Unobtainable: Yes Allergies: Coded Allergies: No Known Allergies (Unverified , 04/01/19) Objective Vital Signs Last 24 Hour Vital Signs Date Time Temp Pulse Resp B/P (MAP) Pulse Ox O2 Delivery O2 Flow Rate FiO2 04/05/19 09:14 69 151/81 04/05/19 09:14 69 151/81 04/05/19 08:28 97 Nasal Cannula 2.0 04/05/19 08:28 69 18 97 Nasal Cannula 2.0 04/05/19 08:02 98.5 70 20 151/81 (104) 96 04/05/19 07:55 71 04/05/19 05:30 181/78 04/05/19 05:30 181/78 04/05/19 05:22 98.5 78 18 181/78 (112) 95 04/05/19 04:00 98.5 18 181/78 (112) 95 04/05/19 04:00 70 04/05/19 02:00 148/79 (102) 04/05/19 00:44 167/93 04/05/19 00:00 97.8 75 18 167/93 (117) 96 04/05/19 00:00 69 04/04/19 22:02 146/76 04/04/19 22:00 74 146/76 (99) 04/04/19 20:56 78 173/94 04/04/19 20:55 78 173/94 04/04/19 20:00 97.8 78 16 173/94 (120) 95 04/04/19 20:00 72 04/04/19 19:16 97 Nasal Cannula 2.0 28 04/04/19 19:16 72 18 97 Nasal Cannula 2.0 04/04/19 16:00 72 04/04/19 16:00 97.7 70 21 130/84 (99) 96 04/04/19 12:40 164/87 04/04/19 12:39 164/87 04/04/19 12:15 98.1 74 20 164/87 (112) 95 04/04/19 12:00 73 04/04/19 11:59 81 18 100 04/04/19 11:57 81 18 100 04/04/19 11:55 98.5 73 14 162/89 100 Room Air 04/04/19 11:45 73 16 163/91 100 Room Air 04/04/19 11:40 70 14 168/82 100 Room Air 04/04/19 11:36 98.8 72 15 168/93 100 Simple Mask 6 Height (Feet): 5 Height (Inches): 8.00 Weight (Pounds): 162 Respiratory/Chest: lungs clear Cardiovascular: normal rate, regular rhythm, no gallop/murmur Extremities: no edema Laboratory Tests Test 04/05/19 01:00 04/05/19 07:37 Urine Eosinophils None seen (NONE SEEN) White Blood Count 14.5 K/UL (4.8-10.8) H Red Blood Count 3.99 M/UL (4.70-6.10) L Hemoglobin 12.0 G/DL (14.2-18.0) L Hematocrit 35.8 % (42.0-52.0) L Mean Corpuscular Volume 90 FL (80-99) Mean Corpuscular Hemoglobin 30.0 PG (27.0-31.0) Mean Corpuscular Hemoglobin Concent 33.4 G/DL (32.0-36.0) Red Cell Distribution Width 13.5 % (11.6-14.8) Platelet Count 396 K/UL (150-450) Mean Platelet Volume 5.4 FL (6.5-10.1) L Neutrophils (%) (Auto) % (45.0-75.0) Lymphocytes (%) (Auto) % (20.0-45.0) Monocytes (%) (Auto) % (1.0-10.0) Eosinophils (%) (Auto) % (0.0-3.0) Basophils (%) (Auto) % (0.0-2.0) Differential Total Cells Counted 100 Neutrophils % (Manual) 84 % (45-75) H Lymphocytes % (Manual) 7 % (20-45) L Monocytes % (Manual) 9 % (1-10) Eosinophils % (Manual) 0 % (0-3) Basophils % (Manual) 0 % (0-2) Band Neutrophils 0 % (0-8) Platelet Estimate Adequate Platelet Morphology Normal Polychromasia 1+ Schistocytes Occasional Sodium Level 149 MMOL/L (136-145) H Potassium Level 3.2 MMOL/L (3.5-5.1) L Chloride Level 118 MMOL/L (98-107) H Carbon Dioxide Level 18 MMOL/L (21-32) L Anion Gap 13 mmol/L (5-15) Blood Urea Nitrogen 31 mg/dL (7-18) H Creatinine 2.0 MG/DL (0.55-1.30) H Estimat Glomerular Filtration Rate 35.3 mL/min (>60) Glucose Level 206 MG/DL (74-106) H Calcium Level 8.1 MG/DL (8.5-10.1) L Phosphorus Level 3.2 MG/DL (2.5-4.9) Magnesium Level 2.1 MG/DL (1.8-2.4) Total Bilirubin 0.4 MG/DL (0.2-1.0) Aspartate Amino Transf (AST/SGOT) 13 U/L (15-37) L Alanine Aminotransferase (ALT/SGPT) 17 U/L (12-78) Alkaline Phosphatase 82 U/L (46-116) C-Reactive Protein, Quantitative 3.3 mg/dL (0.00-0.90) H Total Protein 6.0 G/DL (6.4-8.2) L Albumin 2.2 G/DL (3.4-5.0) L Globulin 3.8 g/dL Albumin/Globulin Ratio 0.6 (1.0-2.7) L Current Medications Medications (Trade) Dose Ordered Sig/Josh Route PRN Reason Start Time Stop Time Status Last Admin Dose Admin Acetaminophen (Tylenol) 650 mg Q4H PRN ORAL Mild Pain (Pain Scale 1-3) 04/03/19 19:00 05/01/19 18:59 Acetaminophen (Tylenol) 650 mg Q4H PRN ORAL T>100.5 04/03/19 19:45 05/01/19 15:44 Albuterol Sulfate (Proventil) 2.5 mg Q4HR PRN HHN Shortness of Breath 04/03/19 21:00 04/06/19 21:14 Carvedilol (Coreg) 25 mg EVERY 12 HOURS ORAL 04/03/19 21:00 05/03/19 20:59 04/05/19 09:14 Ceftriaxone Sodium 1 gm/ Dextrose 55 ml @ 110 mls/hr Q24H IVPB 04/04/19 15:00 04/11/19 14:59 04/04/19 15:49 Clonidine HCl (Catapres Tab) 0.1 mg Q4H PRN ORAL For High Blood Pressure 04/03/19 19:00 05/03/19 18:59 04/05/19 05:30 Dextrose 1,000 ml @ 125 mls/hr Q8H IV 04/04/19 19:00 05/04/19 18:59 04/05/19 02:19 Dextrose (Dextrose 50%) 25 ml Q30M PRN IV Hypoglycemia 04/03/19 19:15 05/01/19 15:44 Dextrose (Dextrose 50%) 50 ml Q30M PRN IV Hypoglycemia 04/03/19 19:15 05/01/19 15:44 Hydralazine HCl (Apresoline) 100 mg Q8HR ORAL 04/03/19 22:00 05/02/19 11:59 04/05/19 05:30 Linezolid 300 ml @ 300 mls/hr Q12HR IVPB 04/03/19 21:00 04/10/19 20:59 04/05/19 09:14 Nifedipine (Procardia XL) 60 mg Q12HR ORAL 04/03/19 21:00 05/02/19 08:59 04/05/19 09:14 Ondansetron HCl (Zofran) 4 mg Q4H PRN IVP Nausea & Vomiting 04/03/19 19:00 05/02/19 18:59 Pantoprazole (Protonix) 40 mg EVERY 12 HOURS ORAL 04/04/19 21:00 05/04/19 20:59 04/05/19 09:14 Potassium Chloride (K-Dur) 20 meq TWICE A DAY ORAL 04/04/19 09:00 05/04/19 08:59 04/05/19 09:14 Potassium Chloride (K-Dur) 40 meq DAILY ORAL 04/05/19 10:15 05/05/19 10:14 UNV Sodium Citrate (Bicitra) 30 ml TID ORAL 04/04/19 18:00 05/02/19 11:59 04/05/19 09:15 Tamsulosin HCl (Flomax) 0.4 mg BID ORAL 04/04/19 09:00 05/03/19 08:59 04/05/19 09:14 Abbe Hernandez MD Apr 05, 2019 10:46"
--- NOTE | 2019-04-05 12:18 | NUR ---
RD ASSESSMENT & RECOMMENDATIONS SEE CARE ACTIVITY FOR COMPLETE ASSESSMENT DAILY ESTIMATED NEEDS: Needs based on Cardiac, diabetes, wound/ 66kg 25-30 kcals/kg 9162-3833 total kcals 1.25-1.5 g protein/kg 82-99 g total protein 25-30 mL/kg 0936-8572 total fluid mLs NUTRITION DIAGNOSIS: * Altered GI function R/T unknown etiology, possible GIB as evidenced by pt is NPO, c/o N/V-> now CLD s/p EGD w/ finding of severe esophagitis. (UPDATED) * Possible swallowing difficulty R/T dysphagia, h/o CVA as evidenced by NPO, difficulty tolerating oral meds per RN, s/p NUTRITION PROFESSOR eval recs for NTL. (UPDATED) * Increased kcal/prot needs R/T wound healing as evidenced by pt admitted w/ wounds @ lt hip, rt malleous, sacral per photos, refer to WC eval. (UPDATED) CURRENT DIET:Now CLD PO DIET RECOMMENDATIONS-->>BLAND / CCHO MED / LOW NA / texture per NUTRITION PROFESSOR ADDITIONAL RECOMMENDATIONS: * Calibrated bedscale wt for accurate CBW * Monitor lytes, replete as needed * Add Ensure Clear w/ CLD instead of Juices -> dry heaving w/ episodes of vomiting * Wound eval: rec specialist wound evaluation -> w/ diet order, add MVI x 1, Vit C 250mg QD, Sumeet 1pkt BID
--- NOTE | 2019-04-05 12:41 | Cardiology Report ---
APPROVED REPORT EKG Measurement Heart [id number] Sinus rhythm with short MN Low voltage QRS Borderline ECG
--- NOTE | 2019-04-05 14:22 | NUR ---
SWALLOW/SPEECH THERAPY NOTE: SWALLOW STATUS: PATIENT ALERT AND FEELING BETTER. ON PPI TWICE A DAY AND STILL ON CLEAR LIQUIDS. NO LONGER COUGHING ON THIN LIQUIDS WITH SEQUENTIAL SIPS. PATIENT DISLIKED NECTAR THICK LIQUIDS AND AVOIDED THEM. GOALS MET FOR 100% INTAKE OF CLEAR LIQUID DIET. PER RNRAZIA, PATIENT TO CONTINUE TO BE ON CLEAR LIQUID DIET (CLD). GOALS MET FOR STAFF EDUCATED/TRAINED IN POSTED ASPIRATION PRECAUTIONS. PLAN: UPGRADE TO THIN LIQUIDS ON CLD. F/UP ON MONDAY AND SEE IF PATIENT WOULD BENEFIT FROM A MOD BARIUM SWALLOW STUDY STUDY (? 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 IF PO GIVEN, DIETITIAN RECOMMENDED BLAND [facility]-MED LOW NA DIET.
--- NOTE | 2019-04-05 15:10 | NUR ---
*-* INSURANCE *-* ALL CLINICALS AND REVIEWS HAVE BEEN FAXED TO: MARY/BRYAN NO INVESTMENT SPECIALIST ASSIGNED AT THIS TIME PLEASE FAX THE REVIEW/CLINICAL P- [phone] F- [phone]...REVIEW/CLINICAL
--- NOTE | 2019-04-05 16:04 | General Progress Note ---
Assessment/Plan Assessment/Plan: Assessment - UGIB due to severe GERD - N/V, Hiccups - better - Anemia, s/p transfusion - CP, mild elevation in troponin - Azotemia Recommendation - BID PPI - BID H2B for another day - PRN zofran - Monitor CBC - transfuse PRN Subjective Allergies: Coded Allergies: No Known Allergies (Unverified , 04/01/19) Subjective Above noted better tolerated thin liquids Objective Last 24 Hour Vital Signs Date Time Temp Pulse Resp B/P (MAP) Pulse Ox O2 Delivery O2 Flow Rate FiO2 04/05/19 13:17 146/77 04/05/19 12:06 97.6 69 20 146/77 (100) 96 04/05/19 11:35 67 04/05/19 09:14 69 151/81 04/05/19 09:14 69 151/81 04/05/19 08:28 97 Nasal Cannula 2.0 28 04/05/19 08:28 69 18 97 Nasal Cannula 2.0 28 04/05/19 08:02 98.5 70 20 151/81 (104) 96 04/05/19 07:55 71 04/05/19 05:30 181/78 04/05/19 05:30 181/78 04/05/19 05:22 98.5 78 18 181/78 (112) 95 04/05/19 04:00 98.5 18 181/78 (112) 95 04/05/19 04:00 70 04/05/19 02:00 148/79 (102) 04/05/19 00:44 167/93 04/05/19 00:00 97.8 75 18 167/93 (117) 96 04/05/19 00:00 69 04/04/19 22:02 146/76 04/04/19 22:00 74 146/76 (99) 04/04/19 20:56 78 173/94 04/04/19 20:55 78 173/94 04/04/19 20:00 97.8 78 16 173/94 (120) 95 04/04/19 20:00 72 04/04/19 19:16 97 Nasal Cannula 2.0 28 04/04/19 19:16 72 18 97 Nasal Cannula 2.0 28 Intake and Output 04/04/19 04/05/19 18:59 06:59 Intake Total 477.5 ml 1300 ml Output Total 1150 ml Balance -672.5 ml 1300 ml Intake Oral 0 ml IV Total 227.5 ml 1300 ml Blood Product 250 ml Output Urine Total 1100 ml Emesis 50 ml # Voids 67 # Bowel Movements 2 Laboratory Tests 04/05/19 01:00: Urine Eosinophils None seen 04/05/19 07:37: White Blood Count 14.5H, Red Blood Count 3.99L, Hemoglobin 12.0L, Hematocrit 35.8L, Mean Corpuscular Volume 90, Mean Corpuscular Hemoglobin 30.0, Mean Corpuscular Hemoglobin Concent 33.4, Red Cell Distribution Width 13.5, Platelet Count 396, Mean Platelet Volume 5.4L, Neutrophils (%) (Auto) , Lymphocytes (%) ( Auto) , Monocytes (%) (Auto) , Eosinophils (%) (Auto) , Basophils (%) (Auto) , Differential Total Cells Counted 100, Neutrophils % (Manual) 84H, Lymphocytes % (Manual) 7L, Monocytes % (Manual) 9, Eosinophils % (Manual) 0, Basophils % ( Manual) 0, Band Neutrophils 0, Platelet Estimate Adequate, Platelet Morphology Normal, Polychromasia 1+, Schistocytes Occasional, Sodium Level 149H, Potassium Level 3.2L, Chloride Level 118H, Carbon Dioxide Level 18L, Anion Gap 13, Blood Urea Nitrogen 31H, Creatinine 2.0H, Estimat Glomerular Filtration Rate 35.3, Glucose Level 206H, Calcium Level 8.1L, Phosphorus Level 3.2, Magnesium Level 2.1, Total Bilirubin 0.4, Aspartate Amino Transf (AST/SGOT) 13L, Alanine Aminotransferase (ALT/SGPT) 17, Alkaline Phosphatase 82, C-Reactive Protein, Quantitative 3.3H, Total Protein 6.0L, Albumin 2.2L, Globulin 3.8, Albumin/ Globulin Ratio 0.6L Height (Feet): 5 Height (Inches): 8.00 Weight (Pounds): 162 Objective WDWN man NCAT supple CTA RR abd soft NT ND no edema Arlet Rubio MD Apr 05, 2019 16:04
[2019-04-05] MEDS: cefTRIAXone 1 GM in D5W 55 ML IVPB SCH (16:26)
--- NOTE | 2019-04-05 19:16 | NUR ---
HAND-OFF: Report given to LLUVIA William. Endorsed to follow up with elevated blood pressure.
--- NOTE | 2019-04-05 19:17 | NUR ---
NURSE NOTES: Received report from LLUVIA March. Pt. is resting in bed. Pt is AAO x 3, able to make needs known, no signs or symptoms of respiratory distress noted at this time. Bed in lowest position and call light within easy reach, bed alarm on, side rails up x's3- safety brakes engaged. Pt. has Noriega intact and draining to gravity. Patient on SCDs on. Right hand 22G IV intact and patent. Will continue to monitor and follow plan of care.
--- NOTE | 2019-04-05 21:25 | Pulmonolgy Critical Care Note ---
Critical Care - Asmt/Plan Assessment/Plan: Pulmonary Progress Note Assessment/Plan IMPRESSION: 1. Acute on chronic renal failure. 2. Hypotension - resolved 3. Septic shock. 4. Chest pain. 5. Elevated troponin. 6. Profound anemia. s/p transfusion 7. Possible gastrointestinal bleed. 8. History of hypertension, 9. protein calorie malnutrition PLAN HH improved gi noted ID and renal following hydration out of ICU now off pressors medications/laboratory data/nursing notes/ICU care reviewed in detail note reviewed and edited care discussed with RN and RT Critical Care - Subjective ROS Limited/Unobtainable: Yes Condition: improving Critical Care - Objective Vital Signs Noted Laboratory Tests Test 04/01/19 08:39 04/02/19 05:00 Arterial Blood pH 7.369 (7.350-7.450) Arterial Blood Partial Pressure CO2 25.3 mmHg (35.0-45.0) L Arterial Blood Partial Pressure O2 103.7 mmHg (75.0-100.0) H Arterial Blood HCO3 14.3 mmol/L (22.0-26.0) *L Arterial Blood Oxygen Saturation 96.4 % (95-100) Arterial Blood Base Excess -10.0 (-2-2) *L Kin Test Positive White Blood Count 19.0 K/UL (4.8-10.8) H Red Blood Count 3.50 M/UL (4.70-6.10) L Hemoglobin 10.5 G/DL (14.2-18.0) #L Hematocrit 31.1 % (42.0-52.0) #L Mean Corpuscular Volume 89 FL (80-99) Mean Corpuscular Hemoglobin 30.1 PG (27.0-31.0) Mean Corpuscular Hemoglobin Concent 33.9 G/DL (32.0-36.0) Red Cell Distribution Width 12.8 % (11.6-14.8) Platelet Count 424 K/UL (150-450) Mean Platelet Volume 5.6 FL (6.5-10.1) L Neutrophils (%) (Auto) % (45.0-75.0) Lymphocytes (%) (Auto) % (20.0-45.0) Monocytes (%) (Auto) % (1.0-10.0) Eosinophils (%) (Auto) % (0.0-3.0) Basophils (%) (Auto) % (0.0-2.0) Differential Total Cells Counted 100 Neutrophils % (Manual) 88 % (45-75) H Lymphocytes % (Manual) 5 % (20-45) L Monocytes % (Manual) 4 % (1-10) Eosinophils % (Manual) 0 % (0-3) Basophils % (Manual) 0 % (0-2) Band Neutrophils 3 % (0-8) Platelet Estimate Adequate Platelet Morphology Normal Acanthocytes 2+ Sodium Level 152 MMOL/L (136-145) H Potassium Level 4.2 MMOL/L (3.5-5.1) Chloride Level 118 MMOL/L (98-107) H Carbon Dioxide Level 15 MMOL/L (21-32) L Anion Gap 19 mmol/L (5-15) H Blood Urea Nitrogen 73 mg/dL (7-18) H Creatinine 3.3 MG/DL (0.55-1.30) H Estimat Glomerular Filtration Rate 19.8 mL/min (>60) Glucose Level 75 MG/DL (74-106) Calcium Level 8.2 MG/DL (8.5-10.1) L Troponin I 0.086 ng/mL (0.000-0.056) Pro-B-Type Natriuretic Peptide 06525 pg/mL (0-125) H Objective: HEENT: Negative. NECK: Supple. No adenopathy. LUNGS: Moderate breath sounds. CARDIAC: S1, S2. Regular rate and rhythm. ABDOMEN: Soft. EXTREMITIES: No edema. Micro: Microbiology Date/Time Source Procedure Growth Status 04/01/19 08:20 Urine,Clean Catch Urine Culture - Preliminary Resulted Critical Care - Objective Last 24 Hour Vital Signs Date Time Temp Pulse Resp B/P (MAP) Pulse Ox O2 Delivery O2 Flow Rate FiO2 04/05/19 21:08 72 196/98 04/05/19 21:08 196/98 04/05/19 21:08 72 196/98 04/05/19 20:00 72 18 95 Nasal Cannula 2.0 28 04/05/19 20:00 98.3 71 20 196/98 (130) 95 04/05/19 20:00 95 Nasal Cannula 2.0 04/05/19 18:48 70 169/91 (117) 04/05/19 17:01 177/90 04/05/19 16:33 98.2 69 20 177/90 (119) 98 04/05/19 15:29 70 04/05/19 13:17 146/77 04/05/19 12:06 97.6 69 20 146/77 (100) 96 04/05/19 11:35 67 04/05/19 09:14 69 151/81 04/05/19 09:14 69 151/81 04/05/19 08:28 97 Nasal Cannula 2.0 28 04/05/19 08:28 69 18 97 Nasal Cannula 2.0 28 04/05/19 08:02 98.5 70 20 151/81 (104) 96 04/05/19 07:55 71 04/05/19 05:30 181/78 04/05/19 05:30 181/78 04/05/19 05:22 98.5 78 18 181/78 (112) 95 04/05/19 04:00 98.5 18 181/78 (112) 95 04/05/19 04:00 70 04/05/19 02:00 148/79 (102) 04/05/19 00:44 167/93 04/05/19 00:00 97.8 75 18 167/93 (117) 96 04/05/19 00:00 69 04/04/19 22:02 146/76 04/04/19 22:00 74 146/76 (99) Accucheck: 167 Critical Care - Subjective ROS Limited/Unobtainable: No FI02: 28 Sputum Amount: None I&O: Intake and Output 04/04/19 04/05/19 19:00 07:00 Intake Total 575 ml 1175 ml Output Total 1150 ml Balance -575 ml 1175 ml Intake Oral 0 ml IV Total 325 ml 1175 ml Blood Product 250 ml Output Urine Total 1100 ml Emesis 50 ml # Voids 67 # Bowel Movements 2 Jeff Rowe MD Apr 05, 2019 21:25
[2019-04-06] VITALS (8 sets, daily range): BP systolic 113–206; BP diastolic 71–104
--- NOTE | 2019-04-06 00:30 | Progress Note ---
DATE: 04/04/2019 CARDIOLOGY PROGRESS NOTE SUBJECTIVE: The patient is status post endoscopy today. No hemodynamic complications were noted. During the procedure, findings were notable for severe esophagitis. OBJECTIVE: VITAL SIGNS: Blood pressure 125/94, pulse 74, respiratory rate 18. LUNGS: Bilateral breath sounds. No wheezing. CARDIAC: Regular rhythm and rate. Normal S1 and S2. ABDOMEN: Soft. EXTREMITIES: Trace edema. LABORATORY DATA: White count 16.5 and hemoglobin 11.8. Sodium 156, potassium 3.3, bicarbonate 20, BUN 38, creatinine 2.2, and albumin 2.3. IMPRESSION: 1. Esophagitis. 2. Gastrointestinal bleed. 3. Severe dehydration. 4. Hypernatremia. 5. Hypokalemia. 6. Hyperchloremia. 7. Metabolic acidosis. 8. Acute on chronic diastolic congestive heart failure. 9. Acute on chronic renal failure. 10. Sepsis. 11. Recovered shock. 12. Severe anemia, status post transfusions. 13. Urinary tract infection. 14. Hypertensive heart disease with labile blood pressure. PLAN: 1. Hydration. 2. Antimicrobials. 3. Respiratory hygiene. 4. Hypotonic IV fluids. 5. Titrate antihypertensives based on clinical parameters. Jeff Black M.D. DR: TOPHER JOB#: [id number] CC:
--- NOTE | 2019-04-06 00:45 | Progress Note ---
DATE: 04/05/2019 CARDIOLOGY PROGRESS NOTE SUBJECTIVE: The patient has been off pressors for the past 2 to 3 days. Blood pressure parameters remained stable. Endoscopy was completed yesterday and results described in yesterday's note. The patient remains on hydration by IV route. OBJECTIVE: VITAL SIGNS: Blood pressure 146/77 to 196/98, heart rate 70, respiratory rate 18, and afebrile. LUNGS: Bilateral breath sounds. HEART: Regular rhythm and rate. Normal S1 and S2 with a fourth heart sound. ABDOMEN: Soft. Slightly distended. EXTREMITIES: No edema. LABORATORY DATA: White count 14.5 and hemoglobin 12. Sodium 149, potassium 3.2, bicarb 18, chloride 118, BUN 31, creatinine 2, albumin is 2.2, and magnesium is 2.1. IMPRESSION: 1. Recovering sepsis. 2. Resolved shock. 3. Urinary tract infection. 4. Dehydration. 5. Hypernatremia. 6. Acute on chronic renal failure. 7. Hypokalemia. 8. Hyperchloremia. 9. Metabolic acidosis. 10. Severe protein-calorie malnutrition. 11. Anemia, status post transfusions. 12. Accelerated hypertension/hypertensive urgency. PLAN: 1. Antimicrobials. 2. Respiratory hygiene. 3. Hypotonic IV fluids. 4. Up-titrating antihypertensives, as needed therapy on board as well. 5. Replace potassium. 6. Remains high risk. 7. Requires close observation and cardiac monitoring at this time. Jeff Black M.D. DR: TOPHER JOB#: [id number] CC:
[2019-04-06] MEDS: HydrALAZINE 50mg tab ORAL SCH ×3 (06:00→21:33)
[2019-04-06 06:51] LABS: HEMATOCRIT 38.3 % (42.0-52.0); HEMOGLOBIN 12.5 G/DL (14.2-18.0); MEAN CORPUSCULAR VOLUME 92 FL (80-99); PLATELET COUNT 431 K/UL (150-450); RED BLOOD COUNT 4.17 M/UL (4.70-6.10); RED CELL DISTRIBUTION WIDTH 13.4 % (11.6-14.8); WHITE BLOOD COUNT 16.8 K/UL (4.8-10.8)
--- NOTE | 2019-04-06 07:37 | NUR ---
HAND-OFF: Report given to Amaya TEIXEIRA.
--- NOTE | 2019-04-06 07:38 | NUR ---
NURSE NOTES: Received report from LLUVIA Bejarano. The patient is resting on the bed without acute distress or shortness of breath. The patient's bed in the lowest position, call light in reach, and fall and aspiration precaution reinforced. Will closely monitor blood pressure and O2 saturation. Will continue plan of care.
[2019-04-06] MEDS: Sodium Citrate 30ml ORAL SCH ×4 (09:00→17:40)
--- NOTE | 2019-04-06 09:00 | NUR ---
NURSE NOTES: Notified Dr. Byrne regarding elevated blood pressure upto 206/[address] Byrne regarding administration of morning dose of Carvedilol 25mg and Nifedipine 60mg. Per Dr. Byrne, monitor and recheck the blood pressure in an hour and given PRN blood pressure medication if indicated. Will carry out the order.
[2019-04-06] MEDS: Tamsulosin 0.4mg cap ORAL SCH ×2 (09:08→17:40)
[2019-04-06] MEDS: Carvedilol 25mg Tab ORAL SCH ×2 (09:08→20:20)
--- NOTE | 2019-04-06 10:51 | Nephrology Progress Note ---
Assessment/Plan Problem List: (1) Renal failure (ARF), acute on chronic Assessment: Cr lowering (2) Anemia (3) Hypertensive kidney disease (4) Diabetic nephropathy (5) UTI (urinary tract infection) Assessment Renal failure: Likely Acute on Chronic Long history of IDDM Likely Diabetic Nephropathy, Proteinuria, HypoAlbuminemia HTN Anemia, GI bleed likely- s/p 3 units PRBCs transfusion UTI Plan plan; change IV to D5- lower rate add TTS-2 K supplement as needed add flomax replace Labetolol with Coreg Avoid nephrotoxics Adjust BP meds- Kidney G[facility]- noted 2D Echo- noted PRN BP meds Urine studies adjust Zosyn dose for renal failure per orders St eval Subjective ROS Limited/Unobtainable: No Constitutional: Reports: malaise Objective Objective Last 24 Hour Vital Signs Date Time Temp Pulse Resp B/P (MAP) Pulse Ox O2 Delivery O2 Flow Rate FiO2 04/06/19 09:09 76 206/104 04/06/19 09:08 76 206/104 04/06/19 09:05 98.7 76 20 206/104 (138) 95 04/06/19 08:00 98.7 74 20 113/71 (85) 95 04/06/19 06:00 158/80 04/06/19 04:00 98.3 70 20 158/80 (106) 95 04/06/19 04:00 67 04/06/19 00:00 70 04/06/19 00:00 97.7 72 20 162/78 (106) 96 04/05/19 21:08 72 196/98 04/05/19 21:08 196/98 04/05/19 21:08 72 196/98 04/05/19 20:00 72 18 95 Nasal Cannula 2.0 28 04/05/19 20:00 98.3 71 20 196/98 (130) 95 04/05/19 20:00 68 04/05/19 20:00 95 Nasal Cannula 2.0 28 04/05/19 18:48 70 169/91 (117) 04/05/19 17:01 177/90 04/05/19 16:33 98.2 69 20 177/90 (119) 98 04/05/19 15:29 70 04/05/19 13:17 146/77 04/05/19 12:06 97.6 69 20 146/77 (100) 96 04/05/19 11:35 67 Intake and Output 04/05/19 04/06/19 19:00 07:00 Intake Total 2220 ml Output Total 1000 ml Balance 1220 ml Intake Oral 1720 ml IV Total 500 ml Output Urine Total 1000 ml # Bowel Movements 3 Laboratory Tests 04/06/19 05:55: White Blood Count 16.8H, Red Blood Count 4.17L, Hemoglobin 12.5L, Hematocrit 38.3L, Mean Corpuscular Volume 92, Mean Corpuscular Hemoglobin 30.0, Mean Corpuscular Hemoglobin Concent 32.7, Red Cell Distribution Width 13.4, Platelet Count 431, Mean Platelet Volume 5.6L, Neutrophils (%) (Auto) , Lymphocytes (%) ( Auto) , Monocytes (%) (Auto) , Eosinophils (%) (Auto) , Basophils (%) (Auto) , Differential Total Cells Counted 100, Neutrophils % (Manual) 82H, Lymphocytes % (Manual) 13L, Monocytes % (Manual) 3, Eosinophils % (Manual) 2, Basophils % ( Manual) 0, Band Neutrophils 0, Platelet Estimate Adequate, Platelet Morphology Normal, Red Blood Cell Morphology Normal, Polychromasia 1+, Schistocytes Occasional Height (Feet): 5 Height (Inches): 8.00 Weight (Pounds): 159 General Appearance: no apparent distress Objective no change Ismael Banegas MD Apr 06, 2019 10:51
--- NOTE | 2019-04-06 12:00 | NUR ---
NURSE NOTES: Wound care and dressing change completed.
--- NOTE | 2019-04-06 12:52 | NUR ---
CASE MANAGEMENT: REVIEW 04/06/2019 SI:ULCERATIVE ESOPHAGITIS T 98.3 HR 77 RR 18 B/P 161/98 SATS 98% ON RA WBC 16.8 IS:SODIUM CITRATE 30ml COREG 25mg NIFEDIPINE 60mg K-DUR 20meq CLONIDINE 0.1mg APRESOLINE 100mg D5W x1L IVPB TELE STATUS
--- NOTE | 2019-04-06 13:39 | Pulmonolgy Critical Care Note ---
Critical Care - Asmt/Plan Assessment/Plan: Pulmonary Progress Note Assessment/Plan IMPRESSION: 1. Acute on chronic renal failure. 2. Hypotension - resolved 3. Septic shock. 4. Chest pain. 5. Elevated troponin. 6. Profound anemia. s/p transfusion 7. Possible gastrointestinal bleed. 8. History of hypertension, 9. protein calorie malnutrition PLAN HH improved gi noted ID and renal following hydration out of ICU now off pressors medications/laboratory data/nursing notes/ICU care reviewed in detail note reviewed and edited care discussed with RN and RT Critical Care - Subjective ROS Limited/Unobtainable: Yes Condition: improving Critical Care - Objective Vital Signs Noted Laboratory Tests Test 04/01/19 08:39 04/02/19 05:00 Arterial Blood pH 7.369 (7.350-7.450) Arterial Blood Partial Pressure CO2 25.3 mmHg (35.0-45.0) L Arterial Blood Partial Pressure O2 103.7 mmHg (75.0-100.0) H Arterial Blood HCO3 14.3 mmol/L (22.0-26.0) *L Arterial Blood Oxygen Saturation 96.4 % (95-100) Arterial Blood Base Excess -10.0 (-2-2) *L Kin Test Positive White Blood Count 19.0 K/UL (4.8-10.8) H Red Blood Count 3.50 M/UL (4.70-6.10) L Hemoglobin 10.5 G/DL (14.2-18.0) #L Hematocrit 31.1 % (42.0-52.0) #L Mean Corpuscular Volume 89 FL (80-99) Mean Corpuscular Hemoglobin 30.1 PG (27.0-31.0) Mean Corpuscular Hemoglobin Concent 33.9 G/DL (32.0-36.0) Red Cell Distribution Width 12.8 % (11.6-14.8) Platelet Count 424 K/UL (150-450) Mean Platelet Volume 5.6 FL (6.5-10.1) L Neutrophils (%) (Auto) % (45.0-75.0) Lymphocytes (%) (Auto) % (20.0-45.0) Monocytes (%) (Auto) % (1.0-10.0) Eosinophils (%) (Auto) % (0.0-3.0) Basophils (%) (Auto) % (0.0-2.0) Differential Total Cells Counted 100 Neutrophils % (Manual) 88 % (45-75) H Lymphocytes % (Manual) 5 % (20-45) L Monocytes % (Manual) 4 % (1-10) Eosinophils % (Manual) 0 % (0-3) Basophils % (Manual) 0 % (0-2) Band Neutrophils 3 % (0-8) Platelet Estimate Adequate Platelet Morphology Normal Acanthocytes 2+ Sodium Level 152 MMOL/L (136-145) H Potassium Level 4.2 MMOL/L (3.5-5.1) Chloride Level 118 MMOL/L (98-107) H Carbon Dioxide Level 15 MMOL/L (21-32) L Anion Gap 19 mmol/L (5-15) H Blood Urea Nitrogen 73 mg/dL (7-18) H Creatinine 3.3 MG/DL (0.55-1.30) H Estimat Glomerular Filtration Rate 19.8 mL/min (>60) Glucose Level 75 MG/DL (74-106) Calcium Level 8.2 MG/DL (8.5-10.1) L Troponin I 0.086 ng/mL (0.000-0.056) Pro-B-Type Natriuretic Peptide 13259 pg/mL (0-125) H Objective: HEENT: Negative. NECK: Supple. No adenopathy. LUNGS: Moderate breath sounds. CARDIAC: S1, S2. Regular rate and rhythm. ABDOMEN: Soft. EXTREMITIES: No edema. Micro: Microbiology Date/Time Source Procedure Growth Status 04/01/19 08:20 Urine,Clean Catch Urine Culture - Preliminary Resulted Critical Care - Objective Last 24 Hour Vital Signs Date Time Temp Pulse Resp B/P (MAP) Pulse Ox O2 Delivery O2 Flow Rate FiO2 04/06/19 13:20 161/98 04/06/19 12:00 73 04/06/19 12:00 98.3 77 18 161/98 (119) 98 04/06/19 11:10 160/81 04/06/19 10:55 98.6 74 18 160/81 (107) 95 04/06/19 09:09 76 206/104 04/06/19 09:08 76 206/104 04/06/19 09:05 98.7 76 20 206/104 (138) 95 04/06/19 09:00 Room Air 04/06/19 08:00 69 04/06/19 08:00 98.7 74 20 113/71 (85) 95 04/06/19 06:00 158/80 04/06/19 04:00 98.3 70 20 158/80 (106) 95 04/06/19 04:00 67 04/06/19 00:00 70 04/06/19 00:00 97.7 72 20 162/78 (106) 96 04/05/19 21:08 72 196/98 04/05/19 21:08 196/98 04/05/19 21:08 72 196/98 04/05/19 20:00 72 18 95 Nasal Cannula 2.0 28 04/05/19 20:00 98.3 71 20 196/98 (130) 95 04/05/19 20:00 68 04/05/19 20:00 95 Nasal Cannula 2.0 28 04/05/19 18:48 70 169/91 (117) 04/05/19 17:01 177/90 04/05/19 16:33 98.2 69 20 177/90 (119) 98 04/05/19 15:29 70 Accucheck: 192 Critical Care - Subjective ROS Limited/Unobtainable: No FI02: 28 Sputum Amount: None I&O: Intake and Output 04/05/19 04/06/19 18:59 06:59 Intake Total 2220 ml Output Total 1000 ml Balance 1220 ml Intake Oral 1720 ml IV Total 500 ml Output Urine Total 1000 ml # Bowel Movements 3 Jeff Rowe MD Apr 06, 2019 13:39
[2019-04-06] MEDS: cefTRIAXone 1 GM in D5W 55 ML IVPB SCH (15:06)
--- NOTE | 2019-04-06 16:30 | NUR ---
NURSE NOTES: The patient blood pressure got stabilized with medication and continuous monitoring. His latest blood pressure was 125/76 with pulse of 69. Will monitor the patient closely.
--- NOTE | 2019-04-06 19:25 | NUR ---
HAND-OFF: Report given to LLUVIA William. The patient is resting on the bed without acute distress or shortness of breath. The patient's bed in the lowest position, call light in reach, and fall and aspiration precaution reinforced. Endorsed plan of care.
--- NOTE | 2019-04-06 19:33 | NUR ---
NURSE NOTES: Received patient from Amaya TEIXEIRA. Patient in bed, awake and oriented x4, calm and cooperative, no c/o pain. On room air, no s/s of respiratory distress. Bed in low position, locked, bed alarm on, call light within reach.
--- NOTE | 2019-04-06 21:09 | General Progress Note ---
Assessment/Plan Assessment/Plan: Assessment - UGIB due to severe GERD - N/V, Hiccups - better - Anemia, s/p transfusion - CP, mild elevation in troponin - Azotemia Recommendation - BID PPI - d/c H2B - PRN zofran - Monitor CBC - transfuse PRN - advance diet tomorrow Subjective Allergies: Coded Allergies: No Known Allergies (Unverified , 04/01/19) Subjective Above noted better tolerated liquids wants to wait another day prior to advancing diet Objective Last 24 Hour Vital Signs Date Time Temp Pulse Resp B/P (MAP) Pulse Ox O2 Delivery O2 Flow Rate FiO2 04/06/19 21:07 96 Nasal Cannula 2.0 28 04/06/19 21:06 70 18 96 Nasal Cannula 2.0 28 04/06/19 20:21 73 145/79 04/06/19 20:20 73 145/79 04/06/19 20:19 98.7 73 20 145/79 (101) 96 04/06/19 20:03 Room Air 04/06/19 16:00 67 04/06/19 16:00 Room Air 04/06/19 16:00 98.4 69 18 125/76 (92) 97 04/06/19 13:20 161/98 04/06/19 12:00 73 04/06/19 12:00 98.3 77 18 161/98 (119) 98 04/06/19 11:10 160/81 04/06/19 10:55 98.6 74 18 160/81 (107) 95 04/06/19 09:09 76 206/104 04/06/19 09:08 76 206/104 04/06/19 09:05 98.7 76 20 206/104 (138) 95 04/06/19 09:00 Room Air 04/06/19 08:00 69 04/06/19 08:00 98.7 74 20 113/71 (85) 95 04/06/19 06:00 158/80 04/06/19 04:00 98.3 70 20 158/80 (106) 95 04/06/19 04:00 67 04/06/19 00:00 70 04/06/19 00:00 97.7 72 20 162/78 (106) 96 04/05/19 21:08 72 196/98 04/05/19 21:08 196/98 04/05/19 21:08 72 196/98 Intake and Output 04/05/19 04/06/19 19:00 07:00 Intake Total 2220 ml Output Total 1000 ml Balance 1220 ml Intake Oral 1720 ml IV Total 500 ml Output Urine Total 1000 ml # Bowel Movements 3 Laboratory Tests 04/06/19 05:55: White Blood Count 16.8H, Red Blood Count 4.17L, Hemoglobin 12.5L, Hematocrit 38.3L, Mean Corpuscular Volume 92, Mean Corpuscular Hemoglobin 30.0, Mean Corpuscular Hemoglobin Concent 32.7, Red Cell Distribution Width 13.4, Platelet Count 431, Mean Platelet Volume 5.6L, Neutrophils (%) (Auto) , Lymphocytes (%) ( Auto) , Monocytes (%) (Auto) , Eosinophils (%) (Auto) , Basophils (%) (Auto) , Differential Total Cells Counted 100, Neutrophils % (Manual) 82H, Lymphocytes % (Manual) 13L, Monocytes % (Manual) 3, Eosinophils % (Manual) 2, Basophils % ( Manual) 0, Band Neutrophils 0, Platelet Estimate Adequate, Platelet Morphology Normal, Red Blood Cell Morphology Normal, Polychromasia 1+, Schistocytes Occasional Height (Feet): 5 Height (Inches): 8.00 Weight (Pounds): 159 Objective WDWN man NCAT supple CTA RR abd soft NT ND no edema Arlet Rubio MD Apr 06, 2019 21:09
[2019-04-07] VITALS (7 sets, daily range): BP systolic 114–199; BP diastolic 64–104
--- NOTE | 2019-04-07 00:15 | Progress Note ---
DATE: 04/06/2019 CARDIOLOGY PROGRESS NOTE SUBJECTIVE: The patient still has this abdominal distention and is not ready to advance his diet. No nausea or vomiting. No complaints of chest pain or shortness of breath. OBJECTIVE: VITAL SIGNS: Blood pressure range 125/76 to 161/98, heart rate in the 70s, monitored sinus, respiratory rate 18 to 20, afebrile. Oxygen sat 96% on room air. LUNGS: Moderate breath sounds. HEART: Regular rhythm and rate. Normal S1, S2. ABDOMEN: Soft. Slightly distended. No focal tenderness. EXTREMITIES: Without edema. LABORATORY DATA: White count is 16.8, hemoglobin is 12.5. Chemistry panel is pending. IMPRESSION: 1. Ileus. 2. Dehydration. 3. Hyponatremia. 4. Hypokalemia. 5. Acute on chronic renal failure. 6. Acute myocardial ischemia. 7. Acute on chronic diastolic congestive heart failure. 8. Severe esophagitis with gastrointestinal bleeding. 9. Severe protein-calorie malnutrition. 10. Hypertensive heart disease with labile blood pressure range, now improving. PLAN: 1. Advance diet as tolerated. 2. Hypotonic intravenous fluid hydration. 3. Titrate antihypertensives. 4. Avoid tight blood pressure control for now. 5. Replace electrolytes as needed. 6. We will follow closely. Jeff Black M.D. DR: TYRELL JOB#: [id number] CC:
[2019-04-07] MEDS: HydrALAZINE 50mg tab ORAL SCH ×3 (06:12→21:44)
--- NOTE | 2019-04-07 07:23 | NUR ---
NURSE NOTES: Report received from LLUVIA William. Patient awake. AOx3. Having breakfast. Denies any pain or SOB. IV running NS @75. Bed on lowest position, side rails upx2, brakes engaged. Call light within easy reach.
[2019-04-07 07:38] LABS: HEMATOCRIT 35.6 % (42.0-52.0); HEMOGLOBIN 11.8 G/DL (14.2-18.0); MEAN CORPUSCULAR VOLUME 92 FL (80-99); PLATELET COUNT 370 K/UL (150-450); RED BLOOD COUNT 3.88 M/UL (4.70-6.10); RED CELL DISTRIBUTION WIDTH 13.2 % (11.6-14.8); WHITE BLOOD COUNT 14.9 K/UL (4.8-10.8)
--- NOTE | 2019-04-07 07:40 | NUR ---
HAND-OFF: Report given to Lynne TEIXEIRA. Plan of care endorsed.
[2019-04-07 08:04] LABS: ALANINE AMINOTRANSFERASE 16 U/L (12-78); ALBUMIN 1.9 G/DL (3.4-5.0); ALBUMIN/GLOBULIN RATIO 0.5 (1.0-2.7); ALKALINE PHOSPHATASE 70 U/L (46-116); ANION GAP 11 mmol/L (5-15); ASPARTATE AMINO TRANSFERASE 11 U/L (15-37); BILIRUBIN,TOTAL 0.2 MG/DL (0.2-1.0); BLOOD UREA NITROGEN 24 mg/dL (7-18); CALCIUM 7.6 MG/DL (8.5-10.1); CARBON DIOXIDE 19 MMOL/L (21-32); CHLORIDE 110 MMOL/L (98-107); PHOSPHORUS 2.9 MG/DL (2.5-4.9); SODIUM 140 MMOL/L (136-145)
[2019-04-07] MEDS: Sodium Citrate 30ml ORAL SCH ×4 (09:00→18:00)
[2019-04-07] MEDS: Carvedilol 25mg Tab ORAL SCH ×2 (09:13→20:08)
[2019-04-07] MEDS: Tamsulosin 0.4mg cap ORAL SCH ×2 (09:14→18:03)
--- NOTE | 2019-04-07 09:50 | NUR ---
[employer] SI:ILEUS . HYPONATREMIA . HYPOKALEMIA VS: BP 199/104, P 80, T 98.9, RR 22, SpO2 98 WBC 14.9, H&H 11.8/35.6, BUN 24, Cr 2.0 IS:CLONIDINE 0.2mg K-DUR 410meq D5W x1L IV LONITEN 2.5mg APRESOLINE 100mg FLOMAX 0.4mg NIFEDIPINE 60mg ABD DISTENTION, NOT ADVANCING DIET TELE STATUS
--- NOTE | 2019-04-07 09:57 | Infectious Diseases Prog Note ---
Assessment/Plan Assessment/Plan A 1. Staph Epidermidis in blood culture, likely contamination 2. Providencia & Klebsiella UTI treated 3. shock resolved 4. leucocytosis improving 5. Hypernatremia 6. Anemia 7. Ulcerative esophagitis, GERD P 1. Discontinue Rocephin 2.Observe of antibiotic Subjective ROS Limited/Unobtainable: Yes Constitutional: Denies: fever Allergies: Coded Allergies: No Known Allergies (Unverified , 04/01/19) Objective Vital Signs Last 24 Hour Vital Signs Date Time Temp Pulse Resp B/P (MAP) Pulse Ox O2 Delivery O2 Flow Rate FiO2 04/07/19 09:13 76 155/84 04/07/19 09:13 76 155/84 04/07/19 08:00 98.5 76 20 155/84 (107) 97 04/07/19 06:12 153/84 04/07/19 04:00 75 04/07/19 04:00 99.6 74 20 127/64 (85) 95 04/07/19 00:00 99.3 68 20 114/69 (84) 97 04/07/19 00:00 68 04/06/19 21:33 145/79 04/06/19 21:07 96 Nasal Cannula 2.0 28 04/06/19 21:06 70 18 96 Nasal Cannula 2.0 28 04/06/19 20:21 73 145/79 04/06/19 20:20 73 145/79 04/06/19 20:19 98.7 73 20 145/79 (101) 96 04/06/19 20:03 Room Air 04/06/19 20:00 70 04/06/19 16:00 67 04/06/19 16:00 Room Air 04/06/19 16:00 98.4 69 18 125/76 (92) 97 04/06/19 13:20 161/98 04/06/19 12:00 73 04/06/19 12:00 98.3 77 18 161/98 (119) 98 04/06/19 11:10 160/81 04/06/19 10:55 98.6 74 18 160/81 (107) 95 Height (Feet): 5 Height (Inches): 8.00 Weight (Pounds): 159 General Appearance: no acute distress HEENT: mucous membranes moist Respiratory/Chest: lungs clear Cardiovascular: normal rate Abdomen: soft, non tender Extremities: no edema Neurologic/Psychiatric: alert Laboratory Tests Test 04/07/19 06:00 White Blood Count 14.9 K/UL (4.8-10.8) H Red Blood Count 3.88 M/UL (4.70-6.10) L Hemoglobin 11.8 G/DL (14.2-18.0) L Hematocrit 35.6 % (42.0-52.0) L Mean Corpuscular Volume 92 FL (80-99) Mean Corpuscular Hemoglobin 30.3 PG (27.0-31.0) Mean Corpuscular Hemoglobin Concent 33.1 G/DL (32.0-36.0) Red Cell Distribution Width 13.2 % (11.6-14.8) Platelet Count 370 K/UL (150-450) Mean Platelet Volume 5.3 FL (6.5-10.1) L Neutrophils (%) (Auto) % (45.0-75.0) Lymphocytes (%) (Auto) % (20.0-45.0) Monocytes (%) (Auto) % (1.0-10.0) Eosinophils (%) (Auto) % (0.0-3.0) Basophils (%) (Auto) % (0.0-2.0) Differential Total Cells Counted 100 Neutrophils % (Manual) 89 % (45-75) H Lymphocytes % (Manual) 7 % (20-45) L Monocytes % (Manual) 3 % (1-10) Eosinophils % (Manual) 1 % (0-3) Basophils % (Manual) 0 % (0-2) Band Neutrophils 0 % (0-8) Platelet Estimate Adequate Platelet Morphology Normal Schistocytes 1+ Sodium Level 140 MMOL/L (136-145) Potassium Level 4.0 MMOL/L (3.5-5.1) Chloride Level 110 MMOL/L (98-107) H Carbon Dioxide Level 19 MMOL/L (21-32) L Anion Gap 11 mmol/L (5-15) Blood Urea Nitrogen 24 mg/dL (7-18) H Creatinine 2.0 MG/DL (0.55-1.30) H Estimat Glomerular Filtration Rate 35.3 mL/min (>60) Glucose Level 127 MG/DL (74-106) H Calcium Level 7.6 MG/DL (8.5-10.1) L Phosphorus Level 2.9 MG/DL (2.5-4.9) Magnesium Level 1.7 MG/DL (1.8-2.4) L Total Bilirubin 0.2 MG/DL (0.2-1.0) Aspartate Amino Transf (AST/SGOT) 11 U/L (15-37) L Alanine Aminotransferase (ALT/SGPT) 16 U/L (12-78) Alkaline Phosphatase 70 U/L (46-116) Total Protein 5.5 G/DL (6.4-8.2) L Albumin 1.9 G/DL (3.4-5.0) L Globulin 3.6 g/dL Albumin/Globulin Ratio 0.5 (1.0-2.7) L Current Medications Medications (Trade) Dose Ordered Sig/Josh Route PRN Reason Start Time Stop Time Status Last Admin Dose Admin Acetaminophen (Tylenol) 650 mg Q4H PRN ORAL Mild Pain (Pain Scale 1-3) 04/03/19 19:00 05/01/19 18:59 Acetaminophen (Tylenol) 650 mg Q4H PRN ORAL T>100.5 04/03/19 19:45 05/01/19 15:44 Carvedilol (Coreg) 25 mg EVERY 12 HOURS ORAL 04/03/19 21:00 05/03/19 20:59 04/07/19 09:13 Ceftriaxone Sodium 1 gm/ Dextrose 55 ml @ 110 mls/hr Q24H IVPB 04/04/19 15:00 04/11/19 14:59 04/06/19 15:06 Clonidine HCl (Catapres TTS-2) 1 patch QWEEK TDERMAL 04/06/19 11:30 05/06/19 11:29 04/06/19 11:10 Clonidine HCl (Catapres Tab) 0.1 mg Q4H PRN ORAL For High Blood Pressure 04/03/19 19:00 05/03/19 18:59 04/05/19 17:01 Dextrose 1,000 ml @ 75 mls/hr [id number] IV 04/06/19 11:00 05/04/19 10:59 04/07/19 00:58 Dextrose (Dextrose 50%) 25 ml Q30M PRN IV Hypoglycemia 04/03/19 19:15 05/01/19 15:44 Dextrose (Dextrose 50%) 50 ml Q30M PRN IV Hypoglycemia 04/03/19 19:15 05/01/19 15:44 Hydralazine HCl (Apresoline) 100 mg Q8HR ORAL 04/03/19 22:00 05/02/19 11:59 04/07/19 06:12 Nifedipine (Procardia XL) 60 mg Q12HR ORAL 04/03/19 21:00 05/02/19 08:59 04/07/19 09:13 Ondansetron HCl (Zofran) 4 mg Q4H PRN IVP Nausea & Vomiting 04/03/19 19:00 05/02/19 18:59 Pantoprazole (Protonix) 40 mg EVERY 12 HOURS ORAL 04/04/19 21:00 05/04/19 20:59 04/07/19 09:13 Potassium Chloride (K-Dur) 40 meq BID ORAL 04/06/19 09:00 05/05/19 12:48 04/06/19 17:40 Sodium Citrate (Bicitra) 30 ml TID ORAL 04/04/19 18:00 05/02/19 11:59 04/05/19 09:15 Tamsulosin HCl (Flomax) 0.4 mg BID ORAL 04/04/19 09:00 05/03/19 08:59 04/07/19 09:14 Heri Jiménez MD Apr 07, 2019 09:57
--- NOTE | 2019-04-07 15:20 | NUR ---
NURSE NOTES: CN and Dr. Banegas aware of Pt's BP.
--- NOTE | 2019-04-07 15:48 | General Progress Note ---
Assessment/Plan Assessment/Plan: Assessment - UGIB due to severe GERD - N/V, Hiccups - better - Anemia, s/p transfusion - CP, mild elevation in troponin - Azotemia Recommendation - BID PPI - d/c H2B - PRN zofran - Monitor CBC - transfuse PRN - advance diet Subjective Allergies: Coded Allergies: No Known Allergies (Unverified , 04/01/19) Subjective Above noted better tolerated liquids agreed to advance diet Objective Last 24 Hour Vital Signs Date Time Temp Pulse Resp B/P (MAP) Pulse Ox O2 Delivery O2 Flow Rate FiO2 04/07/19 14:42 187/101 04/07/19 14:41 187/101 04/07/19 12:00 76 04/07/19 12:00 98.7 78 18 187/102 (130) 98 04/07/19 09:13 76 155/84 04/07/19 09:13 76 155/84 04/07/19 09:00 Room Air 04/07/19 08:30 96 Nasal Cannula 2.0 28 04/07/19 08:00 75 04/07/19 08:00 98.5 76 20 155/84 (107) 97 04/07/19 06:12 153/84 04/07/19 04:00 75 04/07/19 04:00 99.6 74 20 127/64 (85) 95 04/07/19 00:00 99.3 68 20 114/69 (84) 97 04/07/19 00:00 68 04/06/19 21:33 145/79 04/06/19 21:07 96 Nasal Cannula 2.0 28 04/06/19 21:06 70 18 96 Nasal Cannula 2.0 28 04/06/19 20:21 73 145/79 04/06/19 20:20 73 145/79 04/06/19 20:19 98.7 73 20 145/79 (101) 96 04/06/19 20:03 Room Air 04/06/19 20:00 70 04/06/19 16:00 67 04/06/19 16:00 Room Air 04/06/19 16:00 98.4 69 18 125/76 (92) 97 Intake and Output 04/06/19 04/07/19 19:00 07:00 Intake Total 360 ml 1000 ml Output Total 500 ml 400 ml Balance -140 ml 600 ml Intake Oral 360 ml 120 ml IV Total 880 ml Output Urine Total 500 ml 400 ml # Bowel Movements 2 Laboratory Tests 04/07/19 06:00: White Blood Count 14.9H, Red Blood Count 3.88L, Hemoglobin 11.8L, Hematocrit 35.6L, Mean Corpuscular Volume 92, Mean Corpuscular Hemoglobin 30.3, Mean Corpuscular Hemoglobin Concent 33.1, Red Cell Distribution Width 13.2, Platelet Count 370, Mean Platelet Volume 5.3L, Neutrophils (%) (Auto) , Lymphocytes (%) ( Auto) , Monocytes (%) (Auto) , Eosinophils (%) (Auto) , Basophils (%) (Auto) , Differential Total Cells Counted 100, Neutrophils % (Manual) 89H, Lymphocytes % (Manual) 7L, Monocytes % (Manual) 3, Eosinophils % (Manual) 1, Basophils % ( Manual) 0, Band Neutrophils 0, Platelet Estimate Adequate, Platelet Morphology Normal, Schistocytes 1+, Sodium Level 140, Potassium Level 4.0, Chloride Level 110H, Carbon Dioxide Level 19L, Anion Gap 11, Blood Urea Nitrogen 24H, Creatinine 2.0H, Estimat Glomerular Filtration Rate 35.3, Glucose Level 127H, Calcium Level 7.6L, Phosphorus Level 2.9, Magnesium Level 1.7L, Total Bilirubin 0.2, Aspartate Amino Transf (AST/SGOT) 11L, Alanine Aminotransferase (ALT/SGPT) 16, Alkaline Phosphatase 70, Total Protein 5.5L, Albumin 1.9L, Globulin 3.6, Albumin/Globulin Ratio 0.5L Height (Feet): 5 Height (Inches): 8.00 Weight (Pounds): 159 Objective WDWN man NCAT supple CTA RR abd soft NT ND no edema Arlet Rubio MD Apr 07, 2019 15:48
--- NOTE | 2019-04-07 15:50 | NUR ---
NURSE NOTES: Spoke with Dr. Banegas for the following blood pressure readings from two different blood pressure machines: left arm 199/105, 192/103. right arm 194/102, 198/103. Patient denies pain and heart rate is 77-[address] Banegas is aware. Awaiting orders.
--- NOTE | 2019-04-07 15:57 | Nephrology Progress Note ---
Assessment/Plan Problem List: (1) Renal failure (ARF), acute on chronic Assessment: Cr lowering (2) Anemia (3) Hypertensive kidney disease (4) Diabetic nephropathy (5) UTI (urinary tract infection) Assessment Renal failure: Likely Acute on Chronic Long history of IDDM Likely Diabetic Nephropathy, Proteinuria, HypoAlbuminemia HTN Anemia, GI bleed likely- s/p 3 units PRBCs transfusion UTI Plan plan; stop IV stop TTS Start clonidin 0.2 Q8 Minoxidil PRN K supplement as needed flomax Coreg Avoid nephrotoxics Adjust BP meds- Kidney GASTON- noted 2D Echo- noted PRN BP meds Urine studies adjust Zosyn dose for renal failure per orders St eval Subjective ROS Limited/Unobtainable: No Constitutional: Reports: malaise Objective Objective Last 24 Hour Vital Signs Date Time Temp Pulse Resp B/P (MAP) Pulse Ox O2 Delivery O2 Flow Rate FiO2 04/07/19 14:42 187/101 04/07/19 14:41 187/101 04/07/19 12:00 76 04/07/19 12:00 98.7 78 18 187/102 (130) 98 04/07/19 09:13 76 155/84 04/07/19 09:13 76 155/84 04/07/19 09:00 Room Air 04/07/19 08:30 96 Nasal Cannula 2.0 28 04/07/19 08:00 75 04/07/19 08:00 98.5 76 20 155/84 (107) 97 04/07/19 06:12 153/84 04/07/19 04:00 75 04/07/19 04:00 99.6 74 20 127/64 (85) 95 04/07/19 00:00 99.3 68 20 114/69 (84) 97 04/07/19 00:00 68 04/06/19 21:33 145/79 04/06/19 21:07 96 Nasal Cannula 2.0 28 04/06/19 21:06 70 18 96 Nasal Cannula 2.0 28 04/06/19 20:21 73 145/79 04/06/19 20:20 73 145/79 04/06/19 20:19 98.7 73 20 145/79 (101) 96 04/06/19 20:03 Room Air 04/06/19 20:00 70 04/06/19 16:00 67 04/06/19 16:00 Room Air 04/06/19 16:00 98.4 69 18 125/76 (92) 97 Intake and Output 04/06/19 04/07/19 19:00 07:00 Intake Total 360 ml 1000 ml Output Total 500 ml 400 ml Balance -140 ml 600 ml Intake Oral 360 ml 120 ml IV Total 880 ml Output Urine Total 500 ml 400 ml # Bowel Movements 2 Laboratory Tests 04/07/19 06:00: White Blood Count 14.9H, Red Blood Count 3.88L, Hemoglobin 11.8L, Hematocrit 35.6L, Mean Corpuscular Volume 92, Mean Corpuscular Hemoglobin 30.3, Mean Corpuscular Hemoglobin Concent 33.1, Red Cell Distribution Width 13.2, Platelet Count 370, Mean Platelet Volume 5.3L, Neutrophils (%) (Auto) , Lymphocytes (%) ( Auto) , Monocytes (%) (Auto) , Eosinophils (%) (Auto) , Basophils (%) (Auto) , Differential Total Cells Counted 100, Neutrophils % (Manual) 89H, Lymphocytes % (Manual) 7L, Monocytes % (Manual) 3, Eosinophils % (Manual) 1, Basophils % ( Manual) 0, Band Neutrophils 0, Platelet Estimate Adequate, Platelet Morphology Normal, Schistocytes 1+, Sodium Level 140, Potassium Level 4.0, Chloride Level 110H, Carbon Dioxide Level 19L, Anion Gap 11, Blood Urea Nitrogen 24H, Creatinine 2.0H, Estimat Glomerular Filtration Rate 35.3, Glucose Level 127H, Calcium Level 7.6L, Phosphorus Level 2.9, Magnesium Level 1.7L, Total Bilirubin 0.2, Aspartate Amino Transf (AST/SGOT) 11L, Alanine Aminotransferase (ALT/SGPT) 16, Alkaline Phosphatase 70, Total Protein 5.5L, Albumin 1.9L, Globulin 3.6, Albumin/Globulin Ratio 0.5L Height (Feet): 5 Height (Inches): 8.00 Weight (Pounds): 159 Objective no change Ismael Banegas MD Apr 07, 2019 15:57
[2019-04-07] MEDS ORDERED: cloNIDine 0.2mg Tab ORAL SCH (16:00)
[2019-04-07] MEDS: Minoxidil 2.5mg tab ORAL PRN (18:20)
--- NOTE | 2019-04-07 19:15 | NUR ---
HAND-OFF: Report given to LLUVIA Nelson. Patient in stable condition. BP results and medications given communicated with night RN. Patient denies any pain. Neuro check done.
--- NOTE | 2019-04-07 19:45 | NUR ---
NURSE NOTES: RECEIVED PATIENT RESTING IN BED, NO COMPLAINTS OF PAIN AT THIS TIME. FALL, SEIZURE AND ASPIRATION PRECAUTIONS IN PLACE: CALL LIGHT AND BEDSIDE TABLE WITHIN REACH, BED IN LOW POSITION AND BED ALARM ON, SIDE RAILS PADDED AND HOB ELEVATED. PLAN OF CARE REVIEWED.
--- NOTE | 2019-04-07 20:34 | Pulmonolgy Critical Care Note ---
Critical Care - Asmt/Plan Assessment/Plan: Pulmonary Progress Note Assessment/Plan IMPRESSION: 1. Acute on chronic renal failure. 2. Hypotension - resolved 3. Septic shock. 4. Chest pain. 5. Elevated troponin. 6. Profound anemia. s/p transfusion 7. Possible gastrointestinal bleed. 8. History of hypertension, 9. protein calorie malnutrition PLAN HH improved gi noted ID and renal following hydration out of ICU now off pressors medications/laboratory data/nursing notes/ICU care reviewed in detail note reviewed and edited care discussed with RN and RT Critical Care - Subjective ROS Limited/Unobtainable: Yes Condition: improving Critical Care - Objective Vital Signs Noted Laboratory Tests Test 04/01/19 08:39 04/02/19 05:00 Arterial Blood pH 7.369 (7.350-7.450) Arterial Blood Partial Pressure CO2 25.3 mmHg (35.0-45.0) L Arterial Blood Partial Pressure O2 103.7 mmHg (75.0-100.0) H Arterial Blood HCO3 14.3 mmol/L (22.0-26.0) *L Arterial Blood Oxygen Saturation 96.4 % (95-100) Arterial Blood Base Excess -10.0 (-2-2) *L Kin Test Positive White Blood Count 19.0 K/UL (4.8-10.8) H Red Blood Count 3.50 M/UL (4.70-6.10) L Hemoglobin 10.5 G/DL (14.2-18.0) #L Hematocrit 31.1 % (42.0-52.0) #L Mean Corpuscular Volume 89 FL (80-99) Mean Corpuscular Hemoglobin 30.1 PG (27.0-31.0) Mean Corpuscular Hemoglobin Concent 33.9 G/DL (32.0-36.0) Red Cell Distribution Width 12.8 % (11.6-14.8) Platelet Count 424 K/UL (150-450) Mean Platelet Volume 5.6 FL (6.5-10.1) L Neutrophils (%) (Auto) % (45.0-75.0) Lymphocytes (%) (Auto) % (20.0-45.0) Monocytes (%) (Auto) % (1.0-10.0) Eosinophils (%) (Auto) % (0.0-3.0) Basophils (%) (Auto) % (0.0-2.0) Differential Total Cells Counted 100 Neutrophils % (Manual) 88 % (45-75) H Lymphocytes % (Manual) 5 % (20-45) L Monocytes % (Manual) 4 % (1-10) Eosinophils % (Manual) 0 % (0-3) Basophils % (Manual) 0 % (0-2) Band Neutrophils 3 % (0-8) Platelet Estimate Adequate Platelet Morphology Normal Acanthocytes 2+ Sodium Level 152 MMOL/L (136-145) H Potassium Level 4.2 MMOL/L (3.5-5.1) Chloride Level 118 MMOL/L (98-107) H Carbon Dioxide Level 15 MMOL/L (21-32) L Anion Gap 19 mmol/L (5-15) H Blood Urea Nitrogen 73 mg/dL (7-18) H Creatinine 3.3 MG/DL (0.55-1.30) H Estimat Glomerular Filtration Rate 19.8 mL/min (>60) Glucose Level 75 MG/DL (74-106) Calcium Level 8.2 MG/DL (8.5-10.1) L Troponin I 0.086 ng/mL (0.000-0.056) Pro-B-Type Natriuretic Peptide 58503 pg/mL (0-125) H Objective: HEENT: Negative. NECK: Supple. No adenopathy. LUNGS: Moderate breath sounds. CARDIAC: S1, S2. Regular rate and rhythm. ABDOMEN: Soft. EXTREMITIES: No edema. Micro: Microbiology Date/Time Source Procedure Growth Status 04/01/19 08:20 Urine,Clean Catch Urine Culture - Preliminary Resulted Critical Care - Objective Last 24 Hour Vital Signs Date Time Temp Pulse Resp B/P (MAP) Pulse Ox O2 Delivery O2 Flow Rate FiO2 04/07/19 20:09 80 199/104 04/07/19 20:08 80 199/104 04/07/19 18:20 185/100 04/07/19 16:19 185/100 04/07/19 16:00 77 04/07/19 16:00 98.5 77 20 179/100 (126) 98 04/07/19 14:42 187/101 04/07/19 14:41 187/101 04/07/19 12:00 76 04/07/19 12:00 98.7 78 18 187/102 (130) 98 04/07/19 09:13 76 155/84 04/07/19 09:13 76 155/84 04/07/19 09:00 Room Air 04/07/19 08:30 96 Nasal Cannula 2.0 28 04/07/19 08:00 75 04/07/19 08:00 98.5 76 20 155/84 (107) 97 04/07/19 06:12 153/84 04/07/19 04:00 75 04/07/19 04:00 99.6 74 20 127/64 (85) 95 04/07/19 00:00 99.3 68 20 114/69 (84) 97 04/07/19 00:00 68 04/06/19 21:33 145/79 04/06/19 21:07 96 Nasal Cannula 2.0 28 04/06/19 21:06 70 18 96 Nasal Cannula 2.0 28 Accucheck: 114 Critical Care - Subjective ROS Limited/Unobtainable: No FI02: 28 Sputum Amount: None I&O: Intake and Output 04/06/19 04/07/19 18:59 06:59 Intake Total 360 ml 1000 ml Output Total 500 ml 400 ml Balance -140 ml 600 ml Intake Oral 360 ml 120 ml IV Total 880 ml Output Urine Total 500 ml 400 ml # Bowel Movements 2 Jeff Rowe MD Apr 07, 2019 20:34
[2019-04-07] MEDS: cloNIDine 0.2mg Tab ORAL SCH (21:45)
[2019-04-08] VITALS: BP 182/92
[2019-04-08] MEDS: Minoxidil 2.5mg tab ORAL PRN (01:17)
--- NOTE | 2019-04-08 02:00 | Progress Note ---
DATE: 04/07/2019 CARDIOLOGY PROGRESS NOTE SUBJECTIVE: The patient remains off pressors, on fluid hydration. No new signs of bleeding. OBJECTIVE: VITAL SIGNS: Blood pressure very labile from 114/69 early this morning to 199/104 , heart rate 70, respiratory rate 18 to 20, T-max 99.6. LUNGS: Diminished breath sounds. Scattered rhonchi. HEART: Regular rhythm and rate. Normal S1, S2 with a fourth heart sound. ABDOMEN: Soft. EXTREMITIES: No tenderness or edema. LABORATORY DATA: White count 14.9, hemoglobin 11.8. Potassium 4, BUN 24, creatinine 2, magnesium 1.7, albumin 1.9. IMPRESSION: 1. Malignant hypertension, very labile. 2. Status post gastrointestinal bleed due to esophagitis. 3. Hypomagnesemia. 4. Hypokalemia. 5. Acute on chronic renal failure. 6. Acute on chronic diastolic congestive heart failure. PLAN: 1. Antihypertensives advance. 2. IV magnesium ordered. 3. Monitor hemoglobin. 4. Continue PPI therapy. 5. Discontinued IV fluids. 6. Remains high risk and tenuous due to comorbidities. Jeff Black M.D. DR: Cassidy JOB#: [id number] CC:
[2019-04-08 04:00] VITALS: BP 148/89
--- NOTE | 2019-04-08 05:00 | NUR ---
NURSE NOTES: PATIENT KEPT CLEAN AND DRY. BED BATH GIVEN, CALAZIME CREAM APPLIED TO PERINEAL AREA. BLE ELEVATED ON PILLOW WITH HEELS FLOATING. SKIN LOTION APPLIED.
[2019-04-08] MEDS: HydrALAZINE 50mg tab ORAL SCH ×2 (05:31→14:00)
[2019-04-08] MEDS: cloNIDine 0.2mg Tab ORAL SCH ×2 (05:31→14:00)
--- NOTE | 2019-04-08 07:21 | NUR ---
HAND-OFF: Report given to Cosmo ÁLVAREZ RN. PATIENT RESTING IN BED, NO SIGNS OF DISTRESS NOTED.
--- NOTE | 2019-04-08 07:22 | NUR ---
NURSE NOTES: Received report from LLUVIA Nelson. The patient is resting on the bed without acute distress or shortness of breath. Dr. Hunetr was at the bedside for possible discharge planning and will carry out the order as soon as receives it. The patient's bed in the lowest position, call light in reach, and fall and aspiration precaution reinforced. Will continue plan of care.
[2019-04-08 08:00] VITALS: BP 115/71
[2019-04-08] MEDS: Tamsulosin 0.4mg cap ORAL SCH (08:58)
[2019-04-08] MEDS: Sodium Citrate 30ml ORAL SCH ×2 (08:58→12:24)
[2019-04-08] MEDS: Carvedilol 25mg Tab ORAL SCH (08:58)
--- NOTE | 2019-04-08 10:14 | NUR ---
PRODUCTION SORTERIT SECURITY MANAGER SI:ESOPHAGITIS . MALIGNANT HYPERTENSION . HYPOMAGNESEMIA VS: BP 182/92, P 79, T 98.2, RR 20, SpO2 98 on 2.0 NO LABS IS:PROTONIX 40mg NIFEDIPINE 60mg FLOMAX 0.4mg CLONIDINE 0.2mg MAGNESIUM SULFATE 100ml IVPB LONITEN 2.5mg TELE STATUS
--- NOTE | 2019-04-08 10:23 | Critical Care Progress Note ---
Assessment/Plan Assessment/Plan IMPRESSION: 1. Acute on chronic renal failure. 2. Hypotension. 3. Septic shock. 4. Chest pain. 5. Elevated troponin. 6. Profound anemia. s/p transfusion 7. Possible gastrointestinal bleed. 8. History of hypertension, 9. protein calorie malnutrition PLAN off antibiotics stable and at baseline LOC dc today antihypertensives medications/laboratory data/nursing notes reviewed in detail note reviewed and edited care discussed with RN and RT Critical Care - Subjective Interval Events: stable and alert back to baseline Condition: improving EKG Rhythm: Sinus Rhythm I&O: Intake and Output 04/07/19 04/08/19 19:00 07:00 Intake Total 360 ml 560 ml Output Total 2700 ml 1600 ml Balance -2340 ml -1040 ml Intake Oral 360 ml 360 ml IV Total 200 ml Output Urine Total 2700 ml 1600 ml # Bowel Movements 1 1 Critical Care - Objective Last 24 Hour Vital Signs Date Time Temp Pulse Resp B/P (MAP) Pulse Ox O2 Delivery O2 Flow Rate FiO2 04/08/19 08:58 71 115/71 04/08/19 08:58 71 115/71 04/08/19 08:00 97.7 71 18 115/71 (86) 97 04/08/19 07:48 74 20 96 Room Air 21 04/08/19 07:47 96 Room Air 21 04/08/19 05:31 148/89 04/08/19 05:31 148/89 04/08/19 04:00 98.3 77 18 148/89 (108) 98 04/08/19 04:00 72 04/08/19 01:17 182/92 04/08/19 00:00 78 04/08/19 00:00 98.2 79 20 182/92 (122) 98 04/07/19 21:45 178/99 04/07/19 21:45 78 178/99 (125) 04/07/19 21:44 178/99 04/07/19 21:00 Room Air 04/07/19 20:58 95 Nasal Cannula 2.0 28 04/07/19 20:09 80 199/104 04/07/19 20:08 80 199/104 04/07/19 20:00 98.9 80 22 199/104 (135) 98 04/07/19 20:00 76 04/07/19 18:20 185/100 04/07/19 16:19 185/100 04/07/19 16:00 77 04/07/19 16:00 98.5 77 20 179/100 (126) 98 04/07/19 14:42 187/101 04/07/19 14:41 187/101 04/07/19 12:00 76 04/07/19 12:00 98.7 78 18 187/102 (130) 98 Objective: HEENT: Negative. NECK: Supple. No adenopathy. LUNGS: Moderate breath sounds. CARDIAC: S1, S2. Regular rate and rhythm. ABDOMEN: Soft. EXTREMITIES: No edema alert with focal weakness. Accucheck: 199 Wilder Hunter MD Apr 08, 2019 10:23
--- NOTE | 2019-04-08 10:45 | NUR ---
NURSE NOTES: Received Dr. Hunter's discharge order. Notified Dr. Hunter regarding WBC of 14.9 this morning and Troponin of 0.086 that was done on 04/02/2019. Also, will get clarification of either keeping or removing Noriega on way back to [facility]. Per Dr. Hunter, the patient will be discharged back to [facility] with [facility] med. Will continue to monitor the patient.
--- NOTE | 2019-04-08 11:17 | General Progress Note ---
Assessment/Plan Assessment/Plan: Assessment - UGIB due to severe GERD - N/V, Hiccups - better - Anemia, s/p transfusion - CP, mild elevation in troponin - Azotemia Recommendation - BID PPI - d/c H2B - PRN zofran - Monitor CBC - transfuse PRN - d/c planning Subjective Allergies: Coded Allergies: No Known Allergies (Unverified , 04/01/19) Subjective Above noted better tolerated solids d/c planning noted Objective Last 24 Hour Vital Signs Date Time Temp Pulse Resp B/P (MAP) Pulse Ox O2 Delivery O2 Flow Rate FiO2 04/08/19 09:00 Room Air 04/08/19 08:58 71 115/71 04/08/19 08:58 71 115/71 04/08/19 08:00 97.7 71 18 115/71 (86) 97 04/08/19 08:00 74 04/08/19 07:48 74 20 96 Room Air 21 04/08/19 07:47 96 Room Air 21 04/08/19 05:31 148/89 04/08/19 05:31 148/89 04/08/19 04:00 98.3 77 18 148/89 (108) 98 04/08/19 04:00 72 04/08/19 01:17 182/92 04/08/19 00:00 78 04/08/19 00:00 98.2 79 20 182/92 (122) 98 04/07/19 21:45 178/99 04/07/19 21:45 78 178/99 (125) 04/07/19 21:44 178/99 04/07/19 21:00 Room Air 04/07/19 20:58 95 Nasal Cannula 2.0 28 04/07/19 20:09 80 199/104 04/07/19 20:08 80 199/104 04/07/19 20:00 98.9 80 22 199/104 (135) 98 04/07/19 20:00 76 04/07/19 18:20 185/100 04/07/19 16:19 185/100 04/07/19 16:00 77 04/07/19 16:00 98.5 77 20 179/100 (126) 98 04/07/19 14:42 187/101 04/07/19 14:41 187/101 6/30/19 12:00 76 04/07/19 12:00 98.7 78 18 187/102 (130) 98 Intake and Output 04/07/19 04/08/19 19:00 07:00 Intake Total 360 ml 560 ml Output Total 2700 ml 1600 ml Balance -2340 ml -1040 ml Intake Oral 360 ml 360 ml IV Total 200 ml Output Urine Total 2700 ml 1600 ml # Bowel Movements 1 1 Height (Feet): 5 Height (Inches): 8.00 Weight (Pounds): 161 Objective WDWN man NCAT supple CTA RR abd soft NT ND no edema Arlet Rubio MD Apr 08, 2019 11:17
--- NOTE | 2019-04-08 11:47 | Infectious Diseases Prog Note ---
Assessment/Plan Assessment/Plan A 1. Staph Epidermidis in blood culture, likely contamination 2. Providencia & Klebsiella UTI treated 3. shock resolved 4. leucocytosis improving 5. Hypernatremia 6. Anemia 7. Ulcerative esophagitis, GERD P 1. Observe of antibiotic Subjective ROS Limited/Unobtainable: No Constitutional: Reports: no symptoms Respiratory: Reports: no symptoms Gastrointestinal/Abdominal: Reports: no symptoms Genitourinary: Reports: no symptoms Allergies: Coded Allergies: No Known Allergies (Unverified , 04/01/19) Objective Vital Signs Last 24 Hour Vital Signs Date Time Temp Pulse Resp B/P (MAP) Pulse Ox O2 Delivery O2 Flow Rate FiO2 04/08/19 09:00 Room Air 04/08/19 08:58 71 115/71 04/08/19 08:58 71 115/71 04/08/19 08:00 97.7 71 18 115/71 (86) 97 04/08/19 08:00 74 04/08/19 07:48 74 20 96 Room Air 21 04/08/19 07:47 96 Room Air 21 04/08/19 05:31 148/89 04/08/19 05:31 148/89 04/08/19 04:00 98.3 77 18 148/89 (108) 98 04/08/19 04:00 72 04/08/19 01:17 182/92 04/08/19 00:00 78 04/08/19 00:00 98.2 79 20 182/92 (122) 98 04/07/19 21:45 178/99 04/07/19 21:45 78 178/99 (125) 04/07/19 21:44 178/99 04/07/19 21:00 Room Air 04/07/19 20:58 95 Nasal Cannula 2.0 28 04/07/19 20:09 80 199/104 04/07/19 20:08 80 199/104 04/07/19 20:00 98.9 80 22 199/104 (135) 98 04/07/19 20:00 76 04/07/19 18:20 185/100 04/07/19 16:19 185/100 04/07/19 16:00 77 04/07/19 16:00 98.5 77 20 179/100 (126) 98 04/07/19 14:42 187/101 04/07/19 14:41 187/101 04/07/19 12:00 76 04/07/19 12:00 98.7 78 18 187/102 (130) 98 Height (Feet): 5 Height (Inches): 8.00 Weight (Pounds): 161 General Appearance: no acute distress HEENT: mucous membranes moist Respiratory/Chest: normal breath sounds Cardiovascular: normal rate Abdomen: soft, non tender Extremities: no edema Neurologic/Psychiatric: alert, oriented x 3, responsive Current Medications Medications (Trade) Dose Ordered Sig/Josh Route PRN Reason Start Time Stop Time Status Last Admin Dose Admin Acetaminophen (Tylenol) 650 mg Q4H PRN ORAL Mild Pain (Pain Scale 1-3) 04/03/19 19:00 05/01/19 18:59 Acetaminophen (Tylenol) 650 mg Q4H PRN ORAL T>100.5 04/03/19 19:45 05/01/19 15:44 Carvedilol (Coreg) 25 mg EVERY 12 HOURS ORAL 04/03/19 21:00 05/03/19 20:59 04/07/19 20:08 Clonidine HCl (Catapres tab) 0.2 mg EVERY 8 HOURS ORAL 04/07/19 22:00 05/07/19 21:59 04/08/19 05:31 Dextrose (Dextrose 50%) 25 ml Q30M PRN IV Hypoglycemia 04/03/19 19:15 05/01/19 15:44 Dextrose (Dextrose 50%) 50 ml Q30M PRN IV Hypoglycemia 04/03/19 19:15 05/01/19 15:44 Hydralazine HCl (Apresoline) 100 mg Q8HR ORAL 04/03/19 22:00 05/02/19 11:59 04/08/19 05:31 Minoxidil (Loniten) 2.5 mg Q4H PRN ORAL bp over 165 syst 04/07/19 16:00 05/07/19 15:59 04/08/19 01:17 Nifedipine (Procardia XL) 60 mg Q12HR ORAL 04/03/19 21:00 05/02/19 08:59 04/08/19 08:58 Ondansetron HCl (Zofran) 4 mg Q4H PRN IVP Nausea & Vomiting 04/03/19 19:00 05/02/19 18:59 Pantoprazole (Protonix) 40 mg EVERY 12 HOURS ORAL 04/04/19 21:00 05/04/19 20:59 04/08/19 08:59 Sodium Citrate (Bicitra) 30 ml TID ORAL 04/04/19 18:00 05/02/19 11:59 04/05/19 09:15 Tamsulosin HCl (Flomax) 0.4 mg BID ORAL 04/04/19 09:00 05/03/19 08:59 04/08/19 08:58 Heri Jiménez MD Apr 08, 2019 11:47
[2019-04-08 12:00] VITALS: BP 111/69
[2019-04-08] MEDS ORDERED: ACETAMINOPHEN325 M1 ORAL (12:14)
[2019-04-08] MEDS ORDERED: COREG25 MG ORAL (12:14)
[2019-04-08] MEDS ORDERED: CATAPRES0.2 MG ORAL (12:15)
[2019-04-08] MEDS ORDERED: HYDRALAZINE HCL50 MG ORAL (12:16)
[2019-04-08] MEDS ORDERED: MINOXIDIL2.5 MG PO ×3 (12:16→13:01)
[2019-04-08] MEDS ORDERED: FLOMAX0.4 MG ORAL ×2 (12:17→13:03)
[2019-04-08] MEDS ORDERED: PROCARDIA XL30 MG ORAL ×2 (12:17→12:21)
[2019-04-08] MEDS ORDERED: PROTONIX40 MG ORAL (12:18)
[2019-04-08] MEDS ORDERED: HYDRALAZINE HC100 MG ORAL (12:57)
--- NOTE | 2019-04-08 13:21 | NUR ---
NURSE NOTES: Report given to Angeline who is a receiving nurse at [facility]. Explained course of hospitalization and updates in medication. Informed to monitor the blood pressure closely and wound care should be performed. Informed that the transportation is scheduled for 1445. Per lizabeth Young/pranav Noriega before going back to [facility]. Will carry out the order.
--- NOTE | 2019-04-08 13:28 | NUR ---
RD ASSESSMENT & RECOMMENDATIONS SEE CARE ACTIVITY FOR COMPLETE ASSESSMENT DAILY ESTIMATED NEEDS: Needs based on Cardiac, diabetes, wound/ 66kg 25-30 kcals/kg 7530-3277 total kcals 1.25-1.5 g protein/kg 82-99 g total protein 25-30 mL/kg 5502-2665 total fluid mLs NUTRITION DIAGNOSIS: * Altered GI function R/T unknown etiology, possible GIB as evidenced by pt is NPO, c/o N/V-> now CLD s/p EGD w/ finding of severe esophagitis. (UPDATED) * Possible swallowing difficulty R/T dysphagia, h/o CVA as evidenced by NPO, difficulty tolerating oral meds per RN, s/p APPLICATIONS PROGRAMMER eval pt now on ms ground texture diet. (UPDATED) * Increased kcal/prot needs R/T wound healing as evidenced by pt admitted w/ wounds @ lt hip, rt malleolus, sacral per photos, refer to WC eval. (UPDATED) CURRENT DIET:CLD-> cardiac ms ground PO DIET RECOMMENDATIONS-->> BLAND / CCHO MED / LOW NA / texture per APPLICATIONS PROGRAMMER ADDITIONAL RECOMMENDATIONS: * Calibrated bedscale wt for accurate CBW * Monitor lytes, replete as needed * Add Ensure Clear w/ CLD instead of Juices -> dry heaving w/ episodes of vomiting * Wound eval: rec specialist wound evaluation -> w/ diet order, add MVI x 1, Vit C 250mg QD, Sumeet 1pkt BID
--- NOTE | 2019-04-08 13:39 | Nephrology Progress Note ---
Assessment/Plan Problem List: (1) Renal failure (ARF), acute on chronic Assessment: Cr lowering (2) Anemia (3) Hypertensive kidney disease (4) Diabetic nephropathy (5) UTI (urinary tract infection) Assessment Renal failure: Likely Acute on Chronic Long history of IDDM Likely Diabetic Nephropathy, Proteinuria, HypoAlbuminemia HTN Anemia, GI bleed likely- s/p 3 units PRBCs transfusion UTI Plan plan; stop IV stop TTS Start clonidin 0.2 Q8 Minoxidil PRN K supplement as needed flomax Coreg Avoid nephrotoxics Adjust BP meds- Kidney GASTON- noted 2D Echo- noted PRN BP meds Urine studies adjust Zosyn dose for renal failure per orders St eval Subjective ROS Limited/Unobtainable: No Constitutional: Reports: malaise Objective Objective Last 24 Hour Vital Signs Date Time Temp Pulse Resp B/P (MAP) Pulse Ox O2 Delivery O2 Flow Rate FiO2 04/08/19 12:00 98.9 70 18 111/69 (83) 96 04/08/19 12:00 67 04/08/19 09:00 Room Air 04/08/19 08:58 71 115/71 04/08/19 08:58 71 115/71 04/08/19 08:00 97.7 71 18 115/71 (86) 97 04/08/19 08:00 74 04/08/19 07:48 74 20 96 Room Air 21 04/08/19 07:47 96 Room Air 21 04/08/19 05:31 148/89 04/08/19 05:31 148/89 04/08/19 04:00 98.3 77 18 148/89 (108) 98 04/08/19 04:00 72 04/08/19 01:17 182/92 04/08/19 00:00 78 04/08/19 00:00 98.2 79 20 182/92 (122) 98 04/07/19 21:45 178/99 04/07/19 21:45 78 178/99 (125) 04/07/19 21:44 178/99 04/07/19 21:00 Room Air 04/07/19 20:58 95 Nasal Cannula 2.0 28 04/07/19 20:09 80 199/104 04/07/19 20:08 80 199/104 04/07/19 20:00 98.9 80 22 199/104 (135) 98 04/07/19 20:00 76 04/07/19 18:20 185/100 04/07/19 16:19 185/100 04/07/19 16:00 77 04/07/19 16:00 98.5 77 20 179/100 (126) 98 04/07/19 14:42 187/101 04/07/19 14:41 187/101 Intake and Output 04/07/19 04/08/19 19:00 07:00 Intake Total 360 ml 560 ml Output Total 2700 ml 1600 ml Balance -2340 ml -1040 ml Intake Oral 360 ml 360 ml IV Total 200 ml Output Urine Total 2700 ml 1600 ml # Bowel Movements 1 1 Height (Feet): 5 Height (Inches): 8.00 Weight (Pounds): 161 General Appearance: no apparent distress Objective no change Ismael Banegas MD Apr 08, 2019 13:39
[2019-04-08 14:00] VITALS: BP 118/73
--- NOTE | 2019-04-08 14:32 | NUR ---
DISCHARGE SWALLOW/SPEECH THERAPY SUMMARY: PATIENT SEEN FOR DYSPHAGIA, SEE SWALLOW EVALUATION REPORT AND RECOMMENDATIONS. PATIENT NOW ON CARDIAC MECH SOFT CHOPPED DIET AND THIN LIQUIDS W/O OVERT ASPIRATION AND GOOD INTAKE PER RN. GOALS MET FOR STAFF AWARE/EDUCATED/TRAINED ON POSTED ASPIRATION PRECAUTIONS. UNABLE TO COMPLETE MODIFIED BARIUM SWALLOW STUDY NOR COMPLETE SPEECH/LANGUAGE/COGNITIVE EVALUATION DUE TO SCHEDULE CONFLICTS. ABLE TO COMMUNICATE NEEDS AND CONVERSE AT SENTENCE LEVEL IN [employer] ([employer]OV[employer] FIRST LANGUAGE) BUT HE SHOULD HAVE A COMPLETE EVALUATION SINCE HE HAS A RECENT H/O CVA. PLAN: F/UP WITH JUNIOR MECHANICAL ENGINEER AT [facility] FOR SWALLOW/[id number] EVAL/TX CONSIDER MOD BARIUM SWALLOW STUDY OP IF INDICATED TO FURTHER ASSESS SWALLOW, DETERMINE SILENT ASP RISK/ETIOLOGY, AND ATTEMPT TRIAL TX TECHNIQUES. D/W RN KARLA
--- NOTE | 2019-04-08 14:50 | NUR ---
NURSE NOTES: Report given to Pako, who is [facility] transporter, regarding course of hospitalization and discharge instruction. The patient's belongings checked with the patient and signed by the patient. Discharge instruction and teaching given to the patient and signed by the patient. Course of hospitalization, new medication, tight blood pressure monitoring, and re-evaluation of ST, OT, and PT was given to Angeline, who is a receiving nurse @ [facility]. Dr. Hunter was notified regarding abnormal lab level including WBC, Calcium, BUN, Cr, Mg, and Troponin and no new order given upon discharge. IV, telebox, nameband, and Noriega was removed by the physician's order. Wound picture taken and wound care completed before discharge. Wound care instruction and assessment given to Angeline, who is a receiving nurse @ [facility]. The patient is safely transferred back to [facility] via [facility]'s gurney.
--- NOTE | 2019-04-08 23:30 | Progress Note ---
DATE: 04/08/2019 CARDIOLOGY PROGRESS NOTE SUBJECTIVE: The patient's condition has improved. Blood pressure parameters have stabilized. They are still in adequate range overall. No apparent shortness of breath. No new signs of bleeding. PHYSICAL EXAMINATION: VITAL SIGNS: Blood pressure 115/71, pulse 71, respiratory rate 18, afebrile. LUNGS: No rales. Good breath sounds. HEART: Regular rhythm and rate. Normal S1 and S2. ABDOMEN: Soft. No edema. IMPRESSION: 1. Improved blood pressure parameters, still with labile blood pressure and history of malignant range hypertension. 2. Esophagitis with GI bleeding recovered. 3. Hypokalemia and hypomagnesemia, corrected. 4. Acute on chronic diastolic congestive heart failure clinically compensated. 5. Acute on chronic renal failure resolved. PLAN: 1. Stable for outpatient followup. 2. We will need to monitor chemistry panel closely off IV fluids. 3. Continue proton pump inhibitor. 4. P.r.n. antihypertensives for blood pressure spikes. Jeff Black M.D. DR: Ruchi JOB#: [id number] CC:
--- NOTE | 2019-04-09 10:04 | Discharge Summary ---
Discharge Summary Discharge Summary _ DATE OF ADMISSION: 04/01/2019 DATE OF DISCHARGE: 04/08/2019 DISCHARGED BY: Dr. 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 Patient was noted to be hypotensive and required pressor. Patient also had leukocytosis 15.9 and profound anemia with hemoglobin 6.8 and hematocrit 20.4. Urinalysis revealed evidence of urinary tract infection. Chemistry demonstrated evidence of renal failure with BUN 37 creatinine 3.1. Albumin 2.2. Troponin elevated -0.121. Pro BNP [id number]. EKG revealed sinus rhythm no acute ischemic changes. Chest x-ray demonstrated evidence of mild congestive heart failure. Patient subsequently was admitted to intensive care unit for further management. CONSULTANTS: ammonia refrigeration technician ID specialist Dr. Hernandez GI specialist Dr. Parker cook short order Dr. Banegas HOSPITAL COURSE: Patient admitted initially to ICU. Patient started on volume resuscitation, however blood pressure remained low. Patient was started on pressors, titrated to keep mean arterial blood pressure above 65. Hemodynamic status was closely monitored. Memory Care Program Director followed. Patient started on broad-spectrum antibiotic as per ID specialist recommendation. Patient was initially transfused with packed red blood cells. Supplemental oxygen provided to keep pulse oximetry above 92%. Pulmonary toilet provided as needed. Patient eventually was able to be weaned from pressors. Echocardiogram revealed preserved ejection fraction 50 to 55% with mild left ventricular hypertrophy. No evidence of wall motion abnormality. Right ventricular systolic pressure of 41 consistent with mild pulmonary hypertension. Antihypertensive titrated based on clinical parameters, and required up- titrating during the patient's stay due to labile blood pressure. Serial troponin revealed mild elevation. EKG revealed sinus rhythm, no acute ischemic changes. Per ammonia refrigeration technician, troponin elevation was likely due to acute myocardial ischemia , likely precipitated by sepsis and shock. Lipid panel was stable. Antiplatelet therapy was on hold due to profound anemia . Coding Analyst followed. Renal ultrasound demonstrated thickening of the bladder wall consistent with probable cystitis. Bilateral pleural effusion. Mild prostate hypertrophy. Normal bilateral kidney echogenicity. No evidence of hydronephrosis. Renal parameters and electrolytes were closely monitored. Electrolytes corrected as needed. Nephrotoxins were avoided. Per cook short order , patient had acute on chronic renal failure , likely due to diabetic nephropathy , given long history of insulin-dependent diabetes mellitus [place]. Prior to discharge all electrolytes stable. BUN from initial 57 down to 24, creatinine from initial 3.1 down to 2.0. Patient noted to have retching, hiccups, and dry heaves. Then he threw dark brown material with blood clots in it. GI specialist clsoely followed for upper GI bleeding and profound anemia. Stool for occult blood was negative . After patient hemodynamically stabilized, he undergone upper endoscopy to assess for source of bleeding, which revealed severe ulcerative esophagitis. Patient started on PPI twice a day. Intravenous histamine H2 francisco also added twice a day initially , and later discontinued. Patient started on clear liquid diet and was advanced as tolerated. Diet texture provided as per speech therapist recommendations with strict aspiration precaution and close supervision. Protein supplements implemented in patient's diet as per registered radiographer recommendation. Hemoglobin and hematocrit were closely monitored with goal to keep hemoglobin above 7. Patient undergone transfusion of 3 units of packed red blood cells while in the hospital. Hemoglobin and hematocrit remained stable afterwards. Prior to discharge hemoglobin 11.8, hematocrit 25.6. ID specialist followed. Urine culture revealed Klebsiella and Providencia Blood culture revealed 1 out of 4 Staphylococci epidermidis. Per ID specialist , Staphylococcus epidermidis in blood culture was likely contamination. Patient undergone treatment of UTI while in the hospital. Leukocytosis improved. Infectious disease doctor recommended to observe patient off antibiotic and monitor closely. Blood pressure improved. Patient remained hemodynamically stable. Acute renal failure resolved. Hemoglobin and hematocrit stable. Leukocytosis trended down no fevers. Patient completed course of antibiotics. Patient clinically stabilized and was ready for transfer back to half-way facility for continuation of care. FINAL DIAGNOSES: Sepsis Shock, septic and hypovolemic Hypovolemia with severe dehydration [place] and Klebsiella UTI Severe anemia, requiring blood transfusion Upper GI bleeding due to severe GERD Severe ulcerative esophagitis Acute myocardial ischemia Acute on chronic diastolic congestive heart failure -compensated Acute on chronic renal failure , probably due to diabetic nephropathy Electrolyte abnormalities: hypokalemia, hypomagnesemia History of CVA Metabolic and toxic encephalopathy Hypertensive urgency Severe protein calorie malnutrition DISCHARGE MEDICATIONS: See Medication Reconciliation list. DISCHARGE INSTRUCTIONS: Patient was discharged to the half-way facility. Follow up with medical doctor at the facility. I have been assigned to dictate discharge summary for this account. I was not involved in the patient's management. Belinda Fowler NP 2, 2019 10:04
== END 2019-04-08 15:30 | DRG 720 ==
LOC: EDBD 08:19 → EMR 08:30 → ICU 08:49 → EDBEDREQ 08:57 → EDBEDREQSVC 09:51 → 2E 04-03 18:50
PROC: 30233N1 Transfusion of Nonautologous Red Blood Cells into Peripheral Vein, Percutaneous Approach (ICD-10-PCS; principal; 2019-04-01)
PROC: 3E03328 Introduction of Oxazolidinones into Peripheral Vein, Percutaneous Approach (ICD-10-PCS; 2019-04-02)
DX: A41.9 Sepsis, unspecified organism (principal); R65.21 Severe sepsis with septic shock; I50.33 Acute on chronic diastolic (congestive) heart failure; E43 Unspecified severe protein-calorie malnutrition; G92 Toxic encephalopathy; K22.11 Ulcer of esophagus with bleeding; N17.9 Acute kidney failure, unspecified; E83.42 Hypomagnesemia; I51.3 Intracardiac thrombosis, not elsewhere classified; E11.21 Type 2 diabetes mellitus with diabetic nephropathy; E86.0 Dehydration; I13.0 Hypertensive heart and chronic kidney disease with heart failure and stage 1 through stage 4 chronic kidney disease, or unspecified chronic kidney disease; E11.22 Type 2 diabetes mellitus with diabetic chronic kidney disease; K21.0 Gastro-esophageal reflux disease with esophagitis; E86.1 Hypovolemia; N39.0 Urinary tract infection, site not specified; B96.1 Klebsiella pneumoniae [K. pneumoniae] as the cause of diseases classified elsewhere; B96.89 Other specified bacterial agents as the cause of diseases classified elsewhere; R11.2 Nausea with vomiting, unspecified; N18.9 Chronic kidney disease, unspecified; Z79.4 Long term (current) use of insulin; E87.6 Hypokalemia; I16.0 Hypertensive urgency; Z86.73 Personal history of transient ischemic attack (TIA), and cerebral infarction without residual deficits; E87.8 Other disorders of electrolyte and fluid balance, not elsewhere classified
CPT/HCPCS: 36415; 36600; 71045; 76770; 80048; 80053; 80061; 81003; 82270; 82550; 82553; 82607; 82746; 82803; 82962; 82977; 83036; 83605; 83690; 83735; 83880; 84100; 84300; 84443; 84484; 84550; 85007; 85025; 86140; 86850; 86900; 86901; 86920; 87040; 87081; 87086; 87181; 89050; 93005; 93306; 93970; 93971; 94003; 94150; 94664; 96365; 96368; 96375; 99291; J2405; J8499

== ENCOUNTER 2019-08-05 18:34 | Inpatient (IN) | payer OTHER ==
[~2019-08-05] VITALS: Ht 170.2 cm; Wt 64.4 kg
[~2019-08-05 18:34] MED LIST: ACETAMINOPHEN325 M1 ORAL; ACIDOPHILUS1 EAC7 PO; APRESOLINE10 MG ORAL; ASPIR 8181 MG ORAL; ATORVASTATIN CA20 MG ORAL; CATAPRES0.2 MG ORAL; COREG25 MG ORAL; FERROUS SULFAT325 MG ORAL; FLOMAX0.4 MG ORAL; FOLIC ACID1 M1 PO; HUMALOG100 UNIT/4 SUBQ; HYDRALAZINE HC100 MG ORAL; HYDRALAZINE HCL50 MG ORAL; MINOXIDIL2.5 MG PO; MULTIVITAMINS1 EAC8 ORAL; NEXIUM40 MG ORAL; NORMODYNE100 MG ORAL; PROCARDIA XL30 MG ORAL; PROTONIX40 MG ORAL; VITAMIN C500 M1 ORAL
--- NOTE | 2019-08-05 18:40 | NUR ---
ED Nurse Note: Patient brought in by ambulance from [facility] from [facility] due to abdominal pain, nausea, vomiting for 1 day. per staff, patient vomited coffee ground emesis. patient is alert awake x3 bedbound, patient reports he cannot walk, patient placed on a hospital gown, breathing unlabored and even.
--- NOTE | 2019-08-05 18:43 | NUR ---
ED Nurse Note: [place] emergency department called for medication list.
[2019-08-05] MEDS ORDERED: Pantoprazole Inj IVP ONE (18:45)
[2019-08-05] MEDS ORDERED: Omnipaque-300 100ml vial INJ PRN (18:45)
--- NOTE | 2019-08-05 18:50 | Emergency Room Report ---
History of Present Illness General Chief Complaint: Abdominal Pain Source: Patient, Medical Record, EMS Present Illness HPI 53-year-old male presenting with abdominal pain and coffee-ground emesis. She says he has had 2 days of generalized abdominal pain. Says it hurts all over. Has not been able to eat today. Denies any black or bloody stool. He did have a few episodes of coffee-ground emesis. Per EMS his vital signs were normal. No fever no chills and says that he does feel cold Allergies: Coded Allergies: No Known Allergies (Unverified , 04/01/19) Patient History Past Medical History: see triage record Past Surgical History: none Pertinent Family History: none Reviewed Nursing Documentation: PMH: Agreed; PSxH: Agreed Nursing Documentation-PMH Past Medical History: No History, Except For Hx Cardiac Problems: Yes - CEREBRAL INFARCTION Hx Hypertension: Yes Hx Diabetes: Yes - TYPE 2 Hx Cancer: Yes - benign newoplasm on adrenal gland Hx Gastrointestinal Problems: Yes - GI HEMORRHAGE Hx Cerebrovascular Accident: Yes - CVA 12/19/18 Review of Systems All Other Systems: negative except mentioned in HPI Physical Exam Vital Signs Date Time Temp Pulse Resp B/P (MAP) Pulse Ox O2 Delivery O2 Flow Rate FiO2 08/05/19 18:31 97.3 72 16 136/75 (95) 97 Room Air Sp02 EP Interpretation: reviewed, normal General Appearance: alert, GCS 15, non-toxic, moderate distress Head: normocephalic, atraumatic Eyes: bilateral eye normal inspection, bilateral eye PERRL, bilateral eye EOMI ENT: normal ENT inspection Neck: normal inspection, full range of motion Respiratory: lungs clear, normal breath sounds, no respiratory distress Cardiovascular #1: regular rate, rhythm Cardiovascular #2: 2+ radial (R), 2+ radial (L) Gastrointestinal: soft, other - generalized tendenress. no rigidity Genitourinary: other - bajwa in place Musculoskeletal: normal inspection, normal range of motion Neurologic: oriented x3, speech normal Psychiatric: normal inspection, judgement/insight normal, memory normal Procedures Critical Care Time Critical Care Time 40 minutes of CC time Critical care time necessary in order to assess and manage the high probability of life threatening deterioration to gastrointestinal/cardiovascular system, required frequent reassessment. Excludes all billable procedures. Medical Decision Making Diagnostic Impression: Primary Impression: Upper GI bleeding Additional Impressions: UTI (urinary tract infection) Pleural effusion Pericardial effusion Sepsis Renal insufficiency ER Course 53-year-old male with abdominal pain, coffee-ground emesis DDX: Upper GI bleed, patient has a history of erosive esophagitis. Rule out severe anemia. Other surgical intra-abdominal pathology such as appendicitis. Bowel perforation. Plan: Obtain labs, ua, EKG, CXR Protonix, Zofran, CT ER course: Patient has been monitored during ED stay, HD stable given IV protonix +UTI - given IV abx no further eopisodes of nausea/coffee ground emesis here CT abdo pelvis unremarkable Disposition: Patient is to be admitted to telemetry D/W hospitalist Dr Hunter Please note that this Emergency Department Report was dictated using [employer] network consultant technology software, occasionally this can lead to erroneous entry secondary to interpretation by the dictation equipment. EKG Diagnostic Results EP Interpretation: Yes Rate: normal Rhythm: NSR ST Segments: No acute changes ASA given to patient: No Rhythm Strip EP Interpretation: Yes Rate: 75 Rhythm: NSR, no PVCs, no ectopy Chest X-ray CXR: Ordered: Yes 1 view Indication: Pain EP interpretation: Yes Interpretation: mild cardiomegaly Impression: mild cardiomegaly Electronically signed by Rose Marie Blum MD Laboratory Tests Test 08/05/19 18:50 08/05/19 19:11 08/05/19 19:30 White Blood Count 20.4 K/UL (4.8-10.8) H Red Blood Count 3.62 M/UL (4.70-6.10) L Hemoglobin 11.1 G/DL (14.2-18.0) L Hematocrit 31.4 % (42.0-52.0) L Mean Corpuscular Volume 87 FL (80-99) Mean Corpuscular Hemoglobin 30.7 PG (27.0-31.0) Mean Corpuscular Hemoglobin Concent 35.4 G/DL (32.0-36.0) Red Cell Distribution Width 10.9 % (11.6-14.8) L Platelet Count 505 K/UL (150-450) H Mean Platelet Volume 5.0 FL (6.5-10.1) L Neutrophils (%) (Auto) % (45.0-75.0) Lymphocytes (%) (Auto) % (20.0-45.0) Monocytes (%) (Auto) % (1.0-10.0) Eosinophils (%) (Auto) % (0.0-3.0) Basophils (%) (Auto) % (0.0-2.0) Differential Total Cells Counted 100 Neutrophils % (Manual) 93 % (45-75) H Lymphocytes % (Manual) 3 % (20-45) L Monocytes % (Manual) 2 % (1-10) Eosinophils % (Manual) 2 % (0-3) Basophils % (Manual) 0 % (0-2) Band Neutrophils 0 % (0-8) Platelet Estimate Increased H Platelet Morphology Normal Red Blood Cell Morphology Normal Prothrombin Time 11.0 SEC (9.30-11.50) Prothrombin Time INR 1.0 (0.9-1.1) PTT 29 SEC (23-33) Sodium Level 141 MMOL/L (136-145) Potassium Level 4.0 MMOL/L (3.5-5.1) Chloride Level 104 MMOL/L (98-107) Carbon Dioxide Level 27 MMOL/L (21-32) Anion Gap 10 mmol/L (5-15) Blood Urea Nitrogen 44 mg/dL (7-18) H Creatinine 2.9 MG/DL (0.55-1.30) H Estimate Glomerular Filtration Rate 23.0 mL/min (>60) Glucose Level 178 MG/DL (74-106) H Calcium Level 9.2 MG/DL (8.5-10.1) Total Bilirubin 0.4 MG/DL (0.2-1.0) Aspartate Amino Transferase (AST) 13 U/L (15-37) L Alanine Aminotransferase (ALT) 13 U/L (12-78) Alkaline Phosphatase 80 U/L (46-116) Troponin I 0.000 ng/mL (0.000-0.056) Total Protein 7.6 G/DL (6.4-8.2) Albumin 2.8 G/DL (3.4-5.0) L Globulin 4.8 g/dL Albumin/Globulin Ratio 0.6 (1.0-2.7) L Lipase 63 U/L (73-393) L Urine Color Pale yellow Urine Appearance Cloudy Urine pH 8 (4.5-8.0) Urine Specific [place] 1.030 (1.005-1.035) Urine Protein 3+ (NEGATIVE) H Urine Glucose (UA) Negative (NEGATIVE) Urine Ketones Negative (NEGATIVE) Urine Blood 3+ (NEGATIVE) H Urine Nitrite Negative (NEGATIVE) Urine Bilirubin Negative (NEGATIVE) Urine Urobilinogen Normal MG/DL (0.0-1.0) Urine Leukocyte Esterase 3+ (NEGATIVE) H Urine RBC 0-2 /HPF (0 - 0) H Urine WBC 0 /HPF (0 - 0) Urine Squamous Epithelial Cells Occasional /LPF Urine Triple Phosphate Crystals Moderate /LPF (NONE) H Urine Bacteria Many /HPF (NONE) H Lactic Acid Level Pending Last Vital Signs Date Time Temp Pulse Resp B/P (MAP) Pulse Ox O2 Delivery O2 Flow Rate FiO2 08/05/19 18:31 97.3 72 16 136/75 (95) 97 Room Air Disposition: ADMITTED INPATIENT Condition: Critical Rose Marie Blum M.D. Aug 05, 2019 18:50
--- NOTE | 2019-08-05 19:03 | NUR ---
HAND-OFF: Report given to Melinda TEIXEIRA.
--- NOTE | 2019-08-05 19:04 | NUR ---
ED Nurse Note: Received report from LLUVIA Cheney. Pt is in bed, VSS
[2019-08-05 19:05] LABS: HEMATOCRIT 31.4 % (42.0-52.0); HEMOGLOBIN 11.1 G/DL (14.2-18.0); MEAN CORPUSCULAR VOLUME 87 FL (80-99); PLATELET COUNT 505 K/UL (150-450); RED BLOOD COUNT 3.62 M/UL (4.70-6.10); RED CELL DISTRIBUTION WIDTH 10.9 % (11.6-14.8); WHITE BLOOD COUNT 20.4 K/UL (4.8-10.8)
[2019-08-05 19:07] VITALS: BP 130/75
[2019-08-05 19:14] LABS: ANION GAP 10 mmol/L (5-15); BLOOD UREA NITROGEN 44 mg/dL (7-18); CALCIUM 9.2 MG/DL (8.5-10.1); CARBON DIOXIDE 27 MMOL/L (21-32); CHLORIDE 104 MMOL/L (98-107); CREATININE 2.9 MG/DL (0.55-1.30); SODIUM 141 MMOL/L (136-145)
[2019-08-05 19:18] LABS: ALANINE AMINOTRANSFERASE 13 U/L (12-78); ALBUMIN 2.8 G/DL (3.4-5.0); ALBUMIN/GLOBULIN RATIO 0.6 (1.0-2.7); ALKALINE PHOSPHATASE 80 U/L (46-116); ASPARTATE AMINO TRANSFERASE 13 U/L (15-37); BILIRUBIN,TOTAL 0.4 MG/DL (0.2-1.0)
--- NOTE | 2019-08-05 19:20 | NUR ---
ED Nurse Note: pt camed in with bajwa cath but noted with no output and abd distention. reinserted 16F bajwa cath , noted with 1300 urine output.
--- NOTE | 2019-08-05 19:24 | NUR ---
ED Nurse Note: urine sample sent down to lab
[2019-08-05 19:30] LABS: APPEARANCE,URINE CLOUDY; BILIRUBIN, URINE NEGATIVE (NEGATIVE); COLOR,URINE PALE YELLOW; GLUCOSE, URINE (UA) NEGATIVE (NEGATIVE); KETONES,URINE NEGATIVE (NEGATIVE); LEUKOCYTE ESTERASE ,URINE 3+ (NEGATIVE); NITRITE,URINE NEGATIVE (NEGATIVE); PH,URINE 8 (4.5-8.0); PROTEIN,URINE 3+ (NEGATIVE); UROBILINOGEN,URINE NORMAL MG/DL (0.0-1.0)
--- NOTE | 2019-08-05 19:33 | NUR ---
ED Nurse Note: lactic and blood culture sent down to lab
--- NOTE | 2019-08-05 19:47 | NUR ---
ED Nurse Note: left for CT via gurney accompanied by central sterile technician
--- NOTE | 2019-08-05 20:08 | NUR ---
ED Nurse Note: back from CT accompanied by 2 limited radiology technician via gurally in stable condition.
[2019-08-05] MEDS ORDERED: Piperacillin/Tazobactam 3.375 GM in NS 110 ML IVPB ONE (20:30)
--- NOTE | 2019-08-05 20:35 | Diagnostic Imaging Report ---
Indication: Abdominal pain, nausea, vomiting for one day, coffee-ground emesis suggesting upper GI bleed Technique: Spiral acquisitions obtained through the abdomen and pelvis. No oral contrast utilized, per emergency room physician request No IV contrast utilized, per referring physician request.. Multiplanar reconstructions were generated. Total dose length product 962 mGycm. CTDIvol(s) 14 mGy. Dose reduction achieved using automated exposure control Comparison: None Findings: There is generalized edema of the subcutaneous fat and abdominal and retroperitoneal fat. There is a pericardial effusion which is circumferential, measures up to 2.8 cm thick. There are bilateral pleural effusions. There is a small amount of ascites fluid present. The appendix is normal. No evidence of diverticulosis or diverticulitis. No small bowel distention. No free or loculated intraperitoneal gas. No loculated fluid collections. The stomach is distended with fluid and gas. No downstream obstructive lesion demonstrated. Lack of IV contrast limits assessment of the solid organs. The liver, gallbladder, bile ducts, pancreas, spleen, adrenals, kidneys are unremarkable. The bladder is thick-walled. It contains a Noriega catheter. Gas within the bladder lumen is probably related to the Noriega catheterization. The prostate is prominent. There are extensive vascular calcifications. The lung bases demonstrate reticular nodular interstitial and airspace opacities on the left, groundglass opacity bilaterally. There is also some compressive atelectasis related to the above-described pleural fluid. The heart is enlarged. The bones are unremarkable. Impression: Cardiomegaly Anasarca, with large pericardial effusion, bilateral pleural effusions, trace ascites, generalized edema of the subcutaneous fat, abdominal or retroperitoneal fat Bilateral pulmonary parenchymal disease, as described, with reticulonodular opacities on the left and generalized groundglass opacity. Findings are nonspecific most likely represent pulmonary edema but could also indicate inflammatory/infectious process Bladder wall thickening, probably an artifact of under distention but cystitis also possible. No presence of Noriega catheter Prostatomegaly Evidence of extensive atherosclerosis This agrees with the preliminary interpretation provided overnight by [facility] teleradiology service. The CT scanner at [facility] is accredited by the [employer] and the scans are performed using protocols designed to limit radiation exposure to as low as reasonably achievable to attain images of sufficient resolution adequate for diagnostic evaluation.
[2019-08-05] MEDS ORDERED: Vancomycin 1 GM in NS 275 ML IVPB ONE (21:00)
[2019-08-05] MEDS ORDERED: FUROSEMIDE20 M1 ORAL (21:05)
[2019-08-05] MEDS ORDERED: ASPIR 8181 MG ORAL (21:05)
[2019-08-05] MEDS ORDERED: NORCO 5-325 TA1 EACH ORAL (21:05)
[2019-08-05 21:40] VITALS: BP 142/79
--- NOTE | 2019-08-05 21:40 | NUR ---
NURSE NOTES: Received pt from ED via gurney. Pt transferred to [facility]note 3] without any incident. Seymour pt to room, unit, and hospital policies. Received report from LLUVIA Lawrence. Pt has no belongings, belongings list signed by pt. desk monitor is in placed; pt is NSR. IV site intact, asymptomatic, and patent. Bed is in the lowest position and locked. Call light within reach. No signs/symptoms of acute distress noted at this time. Will contact Dr. Hunter for admission orders.
--- NOTE | 2019-08-05 21:40 | NUR ---
ED Nurse Note: pt brought up to tele room 216 accompanied by RN and waste management recycling technicianbarbra english with monitor box in stable condition. Pt has no belongings. IV site to right AC is intact. Vancomycin is still infusing. Report given to LLUVIA Solorzano.
--- NOTE | 2019-08-05 22:08 | NUR ---
NURSE NOTES: Informed Dr. Hunter that pt had dark brown emesis. No orders given at this time.
--- NOTE | 2019-08-05 22:08 | NUR ---
NURSE NOTES: Contacted Dr. Hunter for admission orders. Awaiting call back.
--- NOTE | 2019-08-05 23:02 | NUR ---
NURSE NOTES: Received admission orders from Dr. Hunter. Will note and carry out.
[2019-08-06] VITALS: BP 156/86
[2019-08-06] MEDS ORDERED: Ondansetron ODT 8mg tab ORAL PRN
[2019-08-06] MEDS ORDERED: Minoxidil 2.5mg tab ORAL PRN
[2019-08-06] MEDS ORDERED: HYDROcodone/Acetamin 5/325 tab ORAL PRN
[2019-08-06 04:00] VITALS: BP 164/96
[2019-08-06] MEDS: HydrALAZINE 50mg tab ORAL SCH ×3 (05:55→21:16)
[2019-08-06] MEDS ORDERED: HydrALAZINE 10mg Tab ORAL SCH (06:00)
[2019-08-06] MEDS: NovoLOG Insulin Flexpen SUBQ SCH ×4 (06:30→21:00)
[2019-08-06 07:31] LABS: HEMATOCRIT 28.6 % (42.0-52.0); HEMOGLOBIN 9.5 G/DL (14.2-18.0); MEAN CORPUSCULAR VOLUME 89 FL (80-99); PLATELET COUNT 451 K/UL (150-450); RED BLOOD COUNT 3.22 M/UL (4.70-6.10); WHITE BLOOD COUNT 18.7 K/UL (4.8-10.8)
--- NOTE | 2019-08-06 07:34 | NUR ---
NURSE NOTES: Report received from LLUVIA Solorzano. Patient is lying comfortably in semi-fowlers with no signs of distress. A+Ox3, denies pain/SOB. Respirations are even and unlabored on room air. IV site is intact and saline locked. Bed is at lowest position, brakes engaged, siderails x3, bed alarm on, and call light within reach. Pt is in stable condition; will continue to monitor.
[2019-08-06 07:41] LABS: ANION GAP 9 mmol/L (5-15); BLOOD UREA NITROGEN 41 mg/dL (7-18); CALCIUM 8.9 MG/DL (8.5-10.1); CARBON DIOXIDE 25 MMOL/L (21-32); CHLORIDE 109 MMOL/L (98-107); CREATININE 2.8 MG/DL (0.55-1.30); POTASSIUM 3.8 MMOL/L (3.5-5.1); SODIUM 142 MMOL/L (136-145)
--- NOTE | 2019-08-06 07:59 | NUR ---
HAND-OFF: Report given to LLUVIA Swain. Plan of care endorsed.
[2019-08-06 08:00] VITALS: BP 190/99
[2019-08-06] MEDS: Tamsulosin 0.4mg cap ORAL SCH (09:05)
[2019-08-06] MEDS: Multivitamin w/Minerals tab ORAL SCH (09:06)
--- NOTE | 2019-08-06 09:32 | NUR ---
NURSE NOTES: Let Dr. Hunter know about patient's increased blood pressure of 190/100. Patient cannot keep down oral medications. Per Dr. Hunter, order clonidine 0.1 SL q4hr PRN fir SBP > 150. Order noted and carried out.
--- NOTE | 2019-08-06 09:59 | Diagnostic Imaging Report ---
Indication: Abdominal pain, vomiting Technique: Supine view of the abdomen Comparison: Accounting Machine Operator image from 08/05/[address] Findings: Gas pattern is unremarkable. No masses or unusual calcifications. There are extensive vascular calcifications. Impression: No acute process
[2019-08-06 12:00] VITALS: BP 175/100
--- NOTE | 2019-08-06 12:46 | Diagnostic Imaging Report ---
Indication: Chest pain Technique: One view of the chest Comparison: 04/01/2019 Findings: There is interstitial congestion on the left. No focal airspace consolidation. The heart size is normal. There is a small left effusion. Extent of disease is similar to the prior study Impression: Left lung interstitial disease and small left pleural effusion
--- NOTE | 2019-08-06 15:57 | NUR ---
*-* INSURANCE *-* ALL AVAILABLE CLINICALS HAVE BEEN FAXED TO: JEROME/BRYAN NO MGR ASSIGNED AT THIS TIME. PLEASE FAX THE REVIEW/CLINICAL P- [phone] f- [phone]...REVIEW/CLINICAL Addendum: 08/06/19 at 1600 by JESSI MCINTYRE CM CALLED [facility] S/Jesus ZABALA TRIED GETTING A NUMBER FOR HAND SLITTER SHE STATED THEY DONT HAVE A CM NUMBE TO GIVE.
--- NOTE | 2019-08-06 15:59 | NUR ---
CASE MANAGEMENT:INITIAL REVIEW 53 YR OLD MALE BIBA FROM [facility] CC: ABD PAIN SI: UPPER GI BLEED 97.4 72 16 136/75 97%RA WBC 20.4; RBC 3.62; H/H 11.1 31.4 BUN 44; CREAT 2.9; BG 178 IS: CT ABD IV ZOFRAN X1 IV PROTONIX X1 IV VANCO IV ZOSYN X1 IV PROTONIX X1 : 2E TELE UNIT DCP RETURN TO [facility] WHEN MEDICALLY CLEAR CASE MANAGEMENT:REVIEW 08/06/19 SI: UPPER GI BLEED 98.3 81 18 190/99 95%RA WBC 18.7; RBC 3.22; H/H 9.5 28.6 BUN 41; CREAT 2.8; BG 178 IS: IV CEFEPIME Q24HR IV CATAPRES Q4/PRN PROSCAR PO QD PROTONIX POQD NOVOLOG SQ AC&HS HYDRALAZINE PO Q8HR IV ZOFRAN Q6/PRN : 2E TELE UNIT DCP RETURN TO [facility] WHEN MEDICALLY CLEAR
[2019-08-06 16:00] VITALS: BP 190/109
--- NOTE | 2019-08-06 16:15 | History and Physical Report ---
DATE OF ADMISSION: 08/05/2019 REASON FOR ADMISSION: Possible sepsis. HISTORY OF PRESENT ILLNESS: This is a 53-year-old male admitted through the emergency room. The patient was noted to have abdominal pain and coffee-ground emesis. The patient with generalized abdominal pain. Currently with shunting, but overall without significant distress. The patient was admitted for possible GI bleed as well. PAST MEDICAL HISTORY: Notable for CVA, focal weakness, diabetes, history of benign neoplasm of the adrenal gland. MEDICATIONS: Reviewed. ALLERGIES: Reviewed. SOCIAL HISTORY: Resides at a long term facility. Chronically debilitated. PHYSICAL EXAMINATION: GENERAL: A well-developed male, comfortable. VITAL SIGNS: Significantly elevated blood pressure 190/99, temperature 98.3, pulse 81, respirations 18. HEENT: Negative. NECK: Supple. LUNGS: With moderate breath sounds. CARDIAC: S1, S2. Regular rate and rhythm. ABDOMEN: Soft. EXTREMITIES: No edema. NEUROLOGICAL: Focal weakness noted. LABORATORY DATA: All reviewed. IMPRESSION: Leukocytosis, chronic renal failure, possible sepsis, hypertension out of control, anemia RECOMMENDATIONS: Supportive care. Resume medication. IV hydration with caution. IV antibiotics empirically with vancomycin and Zosyn. ID evaluation. Monitor blood pressure and adjust medications. I will follow clinically for further changes and optimize and discharge the patient back to the long term facility when improved. Wilder Hunter M.D. DR: COCO JOB#: [id number] CC: ELIANA
--- NOTE | 2019-08-06 16:46 | Cardiology Report ---
APPROVED REPORT EKG Measurement Heart [id number] Normal sinus rhythm Prolonged QT Abnormal ECG
[2019-08-06] MEDS: Pantoprazole Inj IVP SCH (18:11)
--- NOTE | 2019-08-06 19:20 | NUR ---
NURSE NOTES: Received pt and report from LLUVIA Swain. Observed pt asleep in bed; arousable to voice. Pt is A/Ox3. conveyor monitor is in placed, IV site intact, asymptomatic and patent. Bed is in the lowest position and locked, call light within reach. No nausea/vomiting or signs/symptoms of acute distress noted at this time. Will continue plan of care.
--- NOTE | 2019-08-06 19:30 | NUR ---
HAND-OFF: Report given to LLUVIA Solorzano. Pt is ins table condition; plan of care endorsed.
[2019-08-06 20:00] VITALS: BP 150/84
--- NOTE | 2019-08-06 21:45 | NUR ---
NURSE NOTES: Informed Dr. Hunter that pt has been NPO since admission. Asked if he would like to order fluids for pt. Dr. Hunter ordered pt to be on clear liquid diet. Will note and carry out.
[2019-08-07] VITALS: BP 139/61
--- NOTE | 2019-08-07 03:24 | NUR ---
NURSE NOTES: Pt is asleep in bed with both eyes closed; arousable to voice and light touch. No nausea/vomiting or signs/symptoms of acute distress noted at this time. Will continue plan of care.
[2019-08-07 04:00] VITALS: BP 134/72
[2019-08-07] MEDS: HydrALAZINE 50mg tab ORAL SCH ×3 (05:41→21:12)
[2019-08-07] MEDS: NovoLOG Insulin Flexpen SUBQ SCH ×4 (05:49→21:27)
--- NOTE | 2019-08-07 07:49 | NUR ---
NURSE NOTES: Report received from LLUVIA Solorzano. Patient is lying comfortably in semi-fowlers with no signs of distress. A+Ox3, denies pain/SOB. Respirations are even and unlabored on room air. IV site is intact and saline locked. Noriega is in place and patent, draining at foot of bed. Bed is at lowest position, brakes engaged, siderails x2, bed alarm on, and call light within reach. Pt is in stable condition; will continue to monitor.
[2019-08-07 08:00] VITALS: BP 129/76
--- NOTE | 2019-08-07 08:02 | NUR ---
HAND-OFF: Report given to LLUVIA Swain. Plan of care endorsed.
[2019-08-07] MEDS: Tamsulosin 0.4mg cap ORAL SCH (08:41)
[2019-08-07] MEDS: Multivitamin w/Minerals tab ORAL SCH (08:41)
[2019-08-07] MEDS: Pantoprazole Inj IVP SCH ×2 (08:41→21:13)
[2019-08-07] MEDS ORDERED: Vancomycin 1.5gm/NS Premix IVPB ONE (10:00)
--- NOTE | 2019-08-07 10:46 | General Progress Note ---
Assessment/Plan Assessment/Plan: GI CONSULT Patient seen. Full note to follow. Will arrange for endoscopy in am Thank you Arlet Rubio MD Subjective Allergies: Coded Allergies: No Known Allergies (Unverified , 04/01/19) Objective Last 24 Hour Vital Signs Date Time Temp Pulse Resp B/P (MAP) Pulse Ox O2 Delivery O2 Flow Rate FiO2 08/07/19 09:00 Room Air 08/07/19 08:41 74 129/76 08/07/19 08:00 97.0 74 20 129/76 (93) 97 08/07/19 08:00 75 08/07/19 05:41 135/71 08/07/19 04:00 73 08/07/19 04:00 97.0 76 20 134/72 (92) 94 08/07/19 00:00 98.3 80 17 139/61 (87) 98 08/07/19 00:00 74 08/06/19 21:16 150/84 08/06/19 21:00 Room Air 08/06/19 20:00 78 08/06/19 20:00 98.2 77 19 150/84 (106) 97 08/06/19 16:09 190/109 08/06/19 16:00 97.1 82 18 190/109 (136) 94 08/06/19 16:00 82 08/06/19 14:19 172/98 08/06/19 12:00 98.4 88 20 175/100 (125) 94 08/06/19 12:00 88 Intake and Output 08/06/19 08/07/19 18:59 06:59 Output Total 350 ml 400 ml Balance -350 ml -400 ml Output Urine Total 350 ml 400 ml # Bowel Movements 1 Laboratory Tests 08/07/19 05:53: Random Vancomycin Level 7.0 Height (Feet): 5 Height (Inches): 7.00 Weight (Pounds): 142 Arlet Rubio MD Aug 07, 2019 10:46
--- NOTE | 2019-08-07 11:19 | Pulmonology Progress Note ---
Assessment/Plan Assessment/Plan Pulmonary Progress Note: HISTORY OF PRESENT ILLNESS: This is a 53-year-old male admitted through the emergency room. The patient was noted to have abdominal pain and coffee-ground emesis. The patient with generalized abdominal pain. Currently with shunting, but overall without significant distress. The patient was admitted for possible GI bleed as well. PAST MEDICAL HISTORY: Notable for CVA, focal weakness, diabetes, history of benign neoplasm of the adrenal gland. PHYSICAL EXAMINATION: GENERAL: A well-developed male, comfortable. VITAL SIGNS NOTED HEENT: Negative. NECK: Supple. LUNGS: CTAB CARDIAC: S1, S2. Regular rate and rhythm. ABDOMEN: Soft. EXTREMITIES: No edema. NEUROLOGICAL: Focal weakness noted. LABORATORY DATA: All reviewed. IMPRESSION: Leukocytosis, chronic renal failure, possible sepsis, hypertension out of control, anemia RECOMMENDATIONS: Supportive care. Resume medication. IV hydration with caution. IV antibiotics empirically with vancomycin and Zosyn. ID evaluation. Monitor blood pressure and adjust medications. Ptotonix. Follow clinically for further changes and optimize and discharge the patient back to the residential facility when improved. Subjective ROS Limited/Unobtainable: No Allergies: Coded Allergies: No Known Allergies (Unverified , 04/01/19) Objective Last 24 Hour Vital Signs Date Time Temp Pulse Resp B/P (MAP) Pulse Ox O2 Delivery O2 Flow Rate FiO2 08/07/19 09:00 Room Air 08/07/19 08:41 74 129/76 08/07/19 08:00 97.0 74 20 129/76 (93) 97 08/07/19 08:00 75 08/07/19 05:41 135/71 08/07/19 04:00 73 08/07/19 04:00 97.0 76 20 134/72 (92) 94 08/07/19 00:00 98.3 80 17 139/61 (87) 98 08/07/19 00:00 74 08/06/19 21:16 150/84 08/06/19 21:00 Room Air 08/06/19 20:00 78 08/06/19 20:00 98.2 77 19 150/84 (106) 97 08/06/19 16:09 190/109 08/06/19 16:00 97.1 82 18 190/109 (136) 94 08/06/19 16:00 82 08/06/19 14:19 172/98 08/06/19 12:00 98.4 88 20 175/100 (125) 94 08/06/19 12:00 88 Intake and Output 08/06/19 08/07/19 18:59 06:59 Output Total 350 ml 400 ml Balance -350 ml -400 ml Output Urine Total 350 ml 400 ml # Bowel Movements 1 Microbiology Date/Time Source Procedure Growth Status 08/05/19 19:30 Blood Blood Culture - Preliminary NO GROWTH AFTER 24 HOURS Resulted 08/05/19 19:15 Blood Blood Culture - Preliminary NO GROWTH AFTER 24 HOURS Resulted 08/05/19 19:11 Urine,Clean Catch Urine Culture - Preliminary Gram Negative Bacillus 1 Resulted 08/05/19 20:00 Rectum Received Laboratory Tests 08/07/19 05:53: Random Vancomycin Level 7.0 Current Medications Medications (Trade) Dose Ordered Sig/Josh Route PRN Reason Start Time Stop Time Status Last Admin Dose Admin Acetaminophen (Tylenol) 650 mg Q4H PRN ORAL Mild Pain/Temp > 100.5 08/06/19 00:00 09/05/19 00:00 Acetaminophen/ Hydrocodone Bitart ([place] 5/325) 1 tab Q6H PRN ORAL For Pain 08/06/19 00:00 08/13/19 00:00 Al Hydroxide/Mg Hydroxide (Mylanta) 30 ml Q4HR PRN ORAL Constipation 08/06/19 00:00 09/05/19 00:00 Cefepime HCl 0.5 gm/Dextrose 50 ml @ 100 mls/hr Q24H IVPB 08/06/19 11:00 08/13/19 10:59 08/07/19 10:01 Clonidine HCl (Catapres Tab) 0.1 mg Q4H PRN SL For High Blood Pressure 08/06/19 09:30 09/05/19 09:29 08/06/19 16:09 Dextrose (Dextrose 50%) 25 ml Q30M PRN IV Hypoglycemia 08/06/19 05:45 09/05/19 05:44 Dextrose (Dextrose 50%) 50 ml Q30M PRN IV Hypoglycemia 08/06/19 05:45 09/05/19 05:44 Hydralazine HCl (Apresoline) 100 mg Q8HR ORAL 08/06/19 06:00 09/05/19 05:59 08/07/19 05:41 Insulin Aspart (NovoLOG) BEFORE MEALS AND HS SUBQ 08/06/19 06:30 09/05/19 06:29 08/07/19 05:49 Iohexol (OMNIPAQUE-300 100ml) 100 ml NOW PRN INJ Radiology Procedure 08/05/19 18:45 08/07/19 18:36 Minoxidil (Loniten) 2.5 mg Q4HR PRN ORAL For High Blood Pressure 08/06/19 00:00 09/05/19 00:00 Multivitamins Therapeutic (Therapeutic Multivitamin) 1 ea DAILY ORAL 08/06/19 09:00 09/05/19 08:59 08/07/19 08:41 Nifedipine (Procardia XL) 60 mg DAILY ORAL 08/06/19 09:00 09/05/19 08:59 08/07/19 08:41 Ondansetron HCl (Zofran) 4 mg Q6H PRN IVP Nausea & Vomiting 08/06/19 05:45 09/05/19 05:44 08/06/19 09:58 Pantoprazole (Protonix) 40 mg EVERY 12 HOURS IVP 08/06/19 16:53 09/05/19 16:52 08/07/19 08:41 Tamsulosin HCl (Flomax) 0.4 mg DAILY ORAL 08/06/19 09:00 09/05/19 08:59 08/07/19 08:41 Vancomycin HCl (Vanco rx to dose) 1 ea DAILY PRN MISC Per rx protocol 08/06/19 09:15 09/05/19 09:14 Vancomycin/Sodium Chloride 275 ml @ 137.5 mls/ hr ONCE ONCE IVPB 08/07/19 10:00 08/07/19 11:59 08/07/19 10:00 Jeff Rowe MD Aug 07, 2019 11:19
[2019-08-07 12:30] VITALS: BP 160/90
--- NOTE | 2019-08-07 13:39 | NUR ---
*-* INSURANCE *-* ALL AVAILABLE CLINICALS HAVE BEEN FAXED TO: JER[facility]/BRYAN RODRIGUES CAE MGR ASSIGNED AT THIS TIME. PLEASE FAX THE REVIEW/CLINICAL P- [phone] f- [phone]...REVIEW/CLINICAL Addendum: 08/07/19 at 1357 by JESSI MCINTYRE CM MEGAN LIPSCOMB SPOKE TO CHARLA [phone] WHO STATED CLINICALS HAVE BEEN RECEIVED.
--- NOTE | 2019-08-07 14:27 | NUR ---
CASE MANAGEMENT:REVIEW 08/07/19 SI: UTI; LEUKOCYTOSIS, CHRONIC RENAL FAILURE PMH: CVA 97.0 74 20 129/76 97%RA 08/06=WBC 18.7; RBC 3.22; H/H 9.5 28.6; BUN 41; CREAT 2.8; BG 178 IS: IV CEFEPIME Q24HR IV CATAPRES Q4/PRN PROSCAR PO QD IV PROTONIX PO Q12HR NOVOLOG SQ AC&HS HYDRALAZINE PO Q8HR IV ZOFRAN Q6/PRN FLOMAX PO QD : 2E TELE UNIT DCP RETURN TO [facility] WHEN MEDICALLY CLEAR PLAN: START ON CLEAR LIQ DIET PT EVAL BLOOD AND URINE CX PENDING CT ABD - RESULTED- LARGE PLEURAL EFFUSION/ CLAUDIO PLEURAL EFFUSION CARDIO CONSULT
--- NOTE | 2019-08-07 15:09 | NUR ---
P.T NOTE: P.T EVALUATION COMPLETED AND TX INITIATED. PLEASE REFER TO P.T EVALUATION FOR CURRENT FUNCTIONAL STATUS. PATIENT IS ALERT, ORIENTED TO SELF/PERSON AND PLACE BUT NOT TO TIME AND CURRENT SITUATION. PATIENT IS PLEASANTLY CONFUSED BUT FOLLOWS SIMPLE COMMANDS. PATIENT DENIED C/O PAIN BUT REPORTS C/O GENERALIZED WEAKNESS. PATIENT CURRENTLY REQUIRE MOD A X 1 FOR BED MOBILITY AND TRANSFERS AND MOD A X 1 FOR GAIT/AMBULATION ACTIVITIES USING THE FWW. SKILLED P.T SERVICE IS WARRANTED TO IMPROVE STRENGTH, BALANCE , ENDURANCE TO INCREASE MOBILITY INDEPENDENCE AND SAFETY. RECOMMEND RETURN TO SNF WITH CONTINUED SKILLED P.T INTERVENTION AT [facility].
[2019-08-07 16:00] VITALS: BP 150/80
--- NOTE | 2019-08-07 19:23 | NUR ---
HAND-OFF: Report given to Stewart Tamayo RN. Pt is ins table condition; plan of care endorsed.
--- NOTE | 2019-08-07 19:30 | NUR ---
NURSE NOTES: Received patient from Brynn TEIXEIRA. Patient on room air, no signs of respiratory distress. Noriega catheter intact. 22 guage iv on right forearm/wrist patent, flushed, no signs of infiltration. Bed in low position, locked, bed alarm on, call light within reach.
[2019-08-07] MEDS ORDERED: ZOFRAN4 M3 ORAL (19:56)
[2019-08-07 20:00] VITALS: BP 146/75
--- NOTE | 2019-08-07 22:23 | NUR ---
NURSE NOTES: Patient declined to sign consent for EGD at this time and asked to sign it tomorrow.
[2019-08-08] VITALS: BP 135/80
[2019-08-08 04:00] VITALS: BP 141/76
--- NOTE | 2019-08-08 05:31 | Consultation ---
DATE OF CONSULTATION: 08/07/2019 GASTROENTEROLOGY CONSULTATION CONSULTING PHYSICIAN: Arlet Rubio M.D. CHIEF COMPLAINT: I was asked to see this patient by Dr. Wilder Hunter for evaluation of upper gastrointestinal bleeding. HISTORY OF PRESENT ILLNESS: The patient is a pleasant 53-year-old man, who was admitted to the emergency room due to abdominal pain and coffee-ground emesis. The patient feels better today and should undergo endoscopy tomorrow to evaluate the cause of the upper gastrointestinal source of bleeding. The patient had a previous episode of similar symptoms this year and underwent endoscopy showing severe ulcerative gastroesophageal reflux. The patient had a CT scan which was negative. PAST MEDICAL HISTORY: History of stroke, weakness, diabetes, benign neoplasm of the adrenal gland, gastroesophageal reflux, and upper gastrointestinal bleeding. FAMILY HISTORY: Noncontributory. SOCIAL HISTORY: There is no charted history of smoking or drinking. REVIEW OF SYSTEMS: Otherwise negative. PHYSICAL EXAMINATION: GENERAL: Pleasant man, seen in the room. HEENT: Normocephalic and atraumatic. NECK: Supple. CHEST: Clear to auscultation. CARDIOVASCULAR: Revealed a regular rate. ABDOMEN: Soft. Good bowel sounds. EXTREMITIES: Revealed no edema. LABORATORY DATA: Laboratory data were noted. ASSESSMENT: This patient presents with upper gastrointestinal bleeding of unclear etiology. Given the previous finding and history it is likely that he has recurrent acid esophagitis. In that case, he should be maintained on a strict regimen of acid suppression. This was discussed with the patient. The indications, risks, alternatives, and possible complications were explained and informed consent was obtained. RECOMMENDATIONS: 1. Clear liquid diet. 2. Endoscopy tomorrow. Thank you for asking me to participate in the care of this patient. Arlet Rubio M.D. DR: RADHA JOB#: [id number] CC: ELIANA
[2019-08-08] MEDS: HydrALAZINE 50mg tab ORAL SCH ×3 (05:57→21:02)
[2019-08-08] MEDS: NovoLOG Insulin Flexpen SUBQ SCH ×4 (06:30→20:49)
--- NOTE | 2019-08-08 06:49 | NUR ---
NURSE NOTES: Notified Dr. Hunter that patient is positive for VRE in the rectum. No orders.
--- NOTE | 2019-08-08 07:19 | NUR ---
NURSE NOTES: Report received from LLUVIA William. Patient is lying comfortably in semi-fowlers with no signs of distress. A+Ox3, denies pain/SOB. Respirations are even and unlabored on room air. IV site is intact and saline locked. Noriega is in place and patent, draining at foot of bed. Bed is at lowest position, brakes engaged, siderails x2, bed alarm on, and call light within reach. Pt is in stable condition; will continue to monitor. Talked with patient about EGD. Although forgetful at times, he wants to have the procedure and spoke with the MD about it. Consent signed by patient and put in the chart.
[2019-08-08 08:00] VITALS: BP 154/83
--- NOTE | 2019-08-08 08:25 | NUR ---
HAZMAT TANKER DRIVER: CT ABD CONTACTED DR BECKER ABOUT CT REPORT FINDINGS.
--- NOTE | 2019-08-08 08:35 | General Progress Note ---
Assessment/Plan Assessment/Plan: sepsis staph bacteremia UTI GIB anemia hypertension CVA PLAN IV antibiotics Vanco and Rocephin GI clearance follow up labs impression, plan, and exam edited and reviewed in detail care discussed with RN Subjective Allergies: Coded Allergies: No Known Allergies (Unverified , 04/01/19) Subjective care noted EGD planned Objective Last 24 Hour Vital Signs Date Time Temp Pulse Resp B/P (MAP) Pulse Ox O2 Delivery O2 Flow Rate FiO2 08/08/19 08:00 97.9 72 18 154/83 (106) 97 08/08/19 05:57 144/84 08/08/19 04:00 98.9 74 18 141/76 (97) 97 08/08/19 04:00 74 08/08/19 00:00 98.3 76 20 135/80 (98) 97 08/08/19 00:00 73 08/07/19 21:12 146/75 08/07/19 21:00 Room Air 08/07/19 20:00 98.4 73 18 146/75 (98) 97 08/07/19 20:00 73 08/07/19 16:00 71 08/07/19 16:00 98.1 73 20 150/80 (103) 97 08/07/19 13:29 160/90 08/07/19 12:30 98.8 73 21 160/90 (113) 97 08/07/19 12:00 72 08/07/19 09:00 Room Air 08/07/19 08:41 74 129/76 Intake and Output 08/07/19 08/08/19 18:59 06:59 Intake Total 1000 ml Output Total 1200 ml Balance 1000 ml -1200 ml Intake Oral 1000 ml Output Urine Total 1200 ml # Bowel Movements 1 Height (Feet): 5 Height (Inches): 7.00 Weight (Pounds): 142 Objective WDWN NAD clear breath sounds bilaterally without rhonchi or wheeze [id number] without MRG NABS nontender no HSM no CC noted edema focal weaknes Wilder Hunter MD Aug 08, 2019 08:35
[2019-08-08] MEDS: Tamsulosin 0.4mg cap ORAL SCH (09:14)
[2019-08-08] MEDS: Pantoprazole Inj IVP SCH ×2 (09:14→21:01)
[2019-08-08] MEDS: Multivitamin w/Minerals tab ORAL SCH (09:14)
--- NOTE | 2019-08-08 09:34 | NUR ---
NURSE NOTES: Dr. Hunter aware of MRSA n and VRE r. No new orders given.
--- NOTE | 2019-08-08 09:39 | NUR ---
NURSE NOTES: Called Dr. Rubio and made him aware patient has pericardial effusion. He said to call GI lab and cancel the EGD for today and advance diet to cardiac diet. He said he will reassess tomorrow. GI lab contacted, food ordered for patient.
[2019-08-08] MEDS: cefTRIAXone 1 GM in D5W 55 ML IVPB SCH (10:07)
--- NOTE | 2019-08-08 10:51 | NUR ---
CASE MANAGEMENT:REVIEW 08/07/19 SI: UTI; UGI BLEED; BACTEREMIA CT + ANASARCA WITH LG PERICARDIAL EFFUSION AND CLAUDIO PLEURAL EFFUSION; 97.9 72 18 154/83 97% ON RA WBC 11.9; RBC 2.99; H/H 8.8; 26.3; IS: IV CEFEPIME Q24HR IV CATAPRES Q4/PRN IV PROTONIX PO Q12HR CATAPRES SL Q4/PRN PROSCAR PO QD PROCARDIA PO QD NOVOLOG SQ AC&HS HYDRALAZINE PO Q8HR IV ZOFRAN Q6/PRN FLOMAX PO QD MVIT PO QD : 2E TELE UNIT DCP RETURN TO [facility] WHEN MEDICALLY CLEAR PLAN: PT EVAL BLOOD AND URINE CX PENDING CARDIO CONSULT 2D ECHO PENDING Addendum: 08/08/19 at 1117 by WILLIAMS DOE LVN CASE MANAGEMENT:REVIEW 08/08/19 SI: UTI; UGI BLEED; BACTEREMIA CT + ANASARCA WITH LG PERICARDIAL EFFUSION AND CLAUDIO PLEURAL EFFUSION; 97.9 72 18 154/83 97% ON RA WBC 11.9; RBC 2.99; H/H 8.8; 26.3; IS: IV CEFEPIME Q24HR IV CATAPRES Q4/PRN IV PROTONIX PO Q12HR CATAPRES SL Q4/PRN PROSCAR PO QD PROCARDIA PO QD NOVOLOG SQ AC&HS HYDRALAZINE PO Q8HR IV ZOFRAN Q6/PRN FLOMAX PO QD MVIT PO QD : 2E TELE UNIT DCP RETURN TO [facility] WHEN MEDICALLY CLEAR PLAN: PT EVAL BLOOD AND URINE CX PENDING CARDIO CONSULT 2D ECHO PENDING
[2019-08-08 11:01] LABS: BASOPHILS % (AUTO) 0.8 % (0.0-2.0); EOSINOPHILS % (AUTO) 1.3 % (0.0-3.0); HEMATOCRIT 26.3 % (42.0-52.0); HEMOGLOBIN 8.8 G/DL (14.2-18.0); LYMPHOCYTES % (AUTO) 12.1 % (20.0-45.0); MEAN CORPUSCULAR VOLUME 88 FL (80-99); MONOCYTES % (AUTO) 8.7 % (1.0-10.0); NEUTROPHILS % (AUTO) 77.1 % (45.0-75.0); PLATELET COUNT 430 K/UL (150-450); RED BLOOD COUNT 2.99 M/UL (4.70-6.10); RED CELL DISTRIBUTION WIDTH 11.7 % (11.6-14.8); WHITE BLOOD COUNT 11.9 K/UL (4.8-10.8)
--- NOTE | 2019-08-08 11:57 | General Progress Note ---
Assessment/Plan Assessment/Plan: Assessment - Recurrent UGIB - h/o ulcerative GERD - large pericardial effusion - anemia Recommendations - cancel EGD - postpone - cardiology evaluation - monitor BP - Follow H&H Subjective Allergies: Coded Allergies: No Known Allergies (Unverified , 04/01/19) Subjective above noted no further hematemesis ECHO done - large pericardial effusion reported EGD cancelled Objective Last 24 Hour Vital Signs Date Time Temp Pulse Resp B/P (MAP) Pulse Ox O2 Delivery O2 Flow Rate FiO2 08/08/19 09:14 72 154/83 08/08/19 09:00 Room Air 08/08/19 08:00 72 08/08/19 08:00 97.9 72 18 154/83 (106) 97 08/08/19 05:57 144/84 08/08/19 04:00 98.9 74 18 141/76 (97) 97 08/08/19 04:00 74 08/08/19 00:00 98.3 76 20 135/80 (98) 97 08/08/19 00:00 73 08/07/19 21:12 146/75 08/07/19 21:00 Room Air 08/07/19 20:00 98.4 73 18 146/75 (98) 97 08/07/19 20:00 73 08/07/19 16:00 71 08/07/19 16:00 98.1 73 20 150/80 (103) 97 08/07/19 13:29 160/90 08/07/19 12:30 98.8 73 21 160/90 (113) 97 08/07/19 12:00 72 Intake and Output 08/07/19 08/08/19 18:59 06:59 Intake Total 1000 ml Output Total 1200 ml Balance 1000 ml -1200 ml Intake Oral 1000 ml Output Urine Total 1200 ml # Bowel Movements 1 Laboratory Tests 08/08/19 10:25: White Blood Count 11.9H, Red Blood Count 2.99L, Hemoglobin 8.8L, Hematocrit 26.3L, Mean Corpuscular Volume 88, Mean Corpuscular Hemoglobin 29.6, Mean Corpuscular Hemoglobin Concent 33.6, Red Cell Distribution Width 11.7, Platelet Count 430, Mean Platelet Volume 5.3L, Neutrophils (%) (Auto) 77.1H, Lymphocytes (%) (Auto) 12.1L, Monocytes (%) (Auto) 8.7, Eosinophils (%) (Auto) 1.3, Basophils (%) (Auto) 0.8 Height (Feet): 5 Height (Inches): 7.00 Weight (Pounds): 142 Objective WDWN NCAT supple CTA RR Abd Soft ND NT no edema Arlet Rubio MD Aug 08, 2019 11:57
[2019-08-08 12:00] VITALS: BP 164/86
[2019-08-08 13:22] LABS: ANION GAP 8 mmol/L (5-15); CARBON DIOXIDE 25 MMOL/L (21-32); CHLORIDE 103 MMOL/L (98-107); SODIUM 136 MMOL/L (136-145)
[2019-08-08 13:44] LABS: ALANINE AMINOTRANSFERASE 14 U/L (12-78); ALBUMIN 2.4 G/DL (3.4-5.0); ALBUMIN/GLOBULIN RATIO 0.6 (1.0-2.7); ALKALINE PHOSPHATASE 62 U/L (46-116); ASPARTATE AMINO TRANSFERASE 10 U/L (15-37); BILIRUBIN,TOTAL 0.4 MG/DL (0.2-1.0); BLOOD UREA NITROGEN 38 mg/dL (7-18); CALCIUM 7.7 MG/DL (8.5-10.1); CREATININE 1.7 MG/DL (0.55-1.30)
--- NOTE | 2019-08-08 13:45 | NUR ---
RD ASSESSMENT & RECOMMENDATIONS SEE CARE ACTIVITY FOR COMPLETE ASSESSMENT DAILY ESTIMATED NEEDS: Needs based on Cardiac, diabetes, 64.5kg 25-30 kcals/kg 4842-7355 total kcals 1-1.5 g protein/kg 65-97 g total protein 25-30 mL/kg 9115-1561 total fluid mLs NUTRITION DIAGNOSIS: Decrease sodium needs r/t cardiac history as evidenced by HTN, elev BP. 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
--- NOTE | 2019-08-08 15:49 | NUR ---
HAND-OFF: Report given to LLUVIA Mills. Pt is ins table condition; plan of care endorsed.
--- NOTE | 2019-08-08 15:50 | NUR ---
NURSE NOTES: Nurse report given by LLUVIA Swain. Patient is lying comfortably in semi-fowlers with no signs of distress. AOx3, denies pain/SOB. Respirations are even and unlabored on room air. IV site is intact and saline locked. Noriega is in place and patent, draining at foot of bed. Bed low and locked, call light within reach, siderails x2, bed alarm on. Pt is in stable condition; will continue to monitor.
[2019-08-08 16:00] VITALS: BP 179/95
--- NOTE | 2019-08-08 16:45 | NUR ---
*-* INSURANCE *-* ALL AVAILABLE CLINICALS HAVE BEEN FAXED TO: JEROME/BRYAN NO MGR ASSIGNED AT THIS TIME. PLEASE FAX THE REVIEW/CLINICAL P- [phone] F- [phone]...REVIEW/CLINICAL
--- NOTE | 2019-08-08 19:27 | NUR ---
HAND-OFF: Report given to LLUVIA William. Patient's stable. Plan of care endorsed. .
--- NOTE | 2019-08-08 19:30 | NUR ---
NURSE NOTES: Received patient from Lina TEIXEIRA. Patient in bed, on room air, no signs of respiratory distress. Bed in low position, locked, bed alarm on, call light within reach.
[2019-08-08 20:00] VITALS: BP 141/77
[2019-08-09] VITALS (13 sets, daily range): BP systolic 136–189; BP diastolic 72–97
--- NOTE | 2019-08-09 01:15 | Progress Note ---
DATE: 08/08/2019 CARDIOLOGY PROGRESS NOTE SUBJECTIVE: The patient has no chest pain or shortness of breath. He says he is well. He has not had any new bleeding. He was scheduled today for an endoscopy that was canceled because of abnormal CT scan. An echocardiogram was done last night that I reviewed. He does have a circumferential pericardial effusion mostly in the anterior region. It is mild in size and without any associated criteria for tamponade namely no right atrial or ventricular collapse in diastole. OBJECTIVE: VITAL SIGNS: Blood pressure 154/83, pulse 72, respiratory rate 18, and afebrile. LUNGS: Clear. CARDIAC: Regular. Normal S1, S2. No rubs. ABDOMEN: Soft. EXTREMITIES: No edema. LABORATORY DATA: White count 11.9 and hemoglobin 8.8. Potassium 4, BUN 38, and creatinine 1.7. Pro-natriuretic peptide 28,000. Albumin 2.4. IMPRESSION: 1. Status post gastrointestinal bleed. 2. Acute on chronic diastolic congestive heart failure. 3. Acute renal failure, improved. 4. Pericardial effusion presently with no signs of tamponade and not of any hemodynamic significance. PLAN: 1. Repeat chest x-ray. 2. Mobilize extravascular edema. 3. No indication for pericardiocentesis. 4. Serial echocardiogram based on clinical parameters. 5. Proceed with gastrointestinal workup. Jeff Black M.D. DR: BRITTANEY JOB#: [id number] CC:
--- NOTE | 2019-08-09 01:15 | Consultation ---
DATE OF CONSULTATION: 08/07/2019 CARDIOLOGY CONSULTATION CONSULTING PHYSICIAN: Jeff Black M.D. REQUESTING PHYSICIAN: Wilder Hunter M.D. REASON FOR CONSULTATION: Pericardial effusion. HISTORY OF PRESENT ILLNESS: This is a 53-year-old [place] male, who presented to the hospital with coffee-grounds emesis 2 days ago. His blood counts have stabilized and no new bleeding has been noted. He was scheduled for endoscopy. He had a CT scan performed and was noted to have an incidental pericardial effusion prompting this consultation. He has not had any new complaints. PAST MEDICAL HISTORY: Cerebrovascular disease with history of cerebrovascular accident, insulin-requiring diabetes mellitus, adrenal adenoma, and GERD. SOCIAL HISTORY: No record of smoking, alcohol, or substance abuse. FAMILY HISTORY: Noncontributory. REVIEW OF SYSTEMS: Otherwise unremarkable. PHYSICAL EXAMINATION: GENERAL: He is in no acute distress. OBJECTIVE: VITAL SIGNS: Blood pressure 146/75, pulse 73, respirations 20, and afebrile. NECK: Jugular venous pressure normal. No sign. LUNGS: Clear. CARDIAC: Regular rhythm and rate. Normal S1, S2 with no rub. ABDOMEN: Soft and nontender. EXTREMITIES: There is no edema. DIAGNOSTIC DATA: EKG on admission revealed sinus rhythm with prolonged QT and no ST changes. Laboratories are noted. IMPRESSION: 1. Pericardial effusion. 2. Status post gastrointestinal bleed. 3. Acute renal failure. 4. Moderate protein calorie malnutrition. 5. History of cerebrovascular accident. 6. Hypertensive heart disease. 7. Leukocytosis. 8. Anemia. 9. Staph bacteremia with sepsis. PLAN: At this time, there is no clinical signs to suggest pericardial tamponade. His endoscopy should be deferred. We will be checking an echocardiogram in making further recommendations. As he has bacteremia, the status of his cardiac valves will be reviewed as well with respect to possible risk of endocarditis. Cardiac monitoring will be continued at this time. Jeff Black M.D. DR: BRITTANEY JOB#: [id number] CC:
[2019-08-09] MEDS: HydrALAZINE 50mg tab ORAL SCH ×3 (05:46→21:52)
[2019-08-09] MEDS: NovoLOG Insulin Flexpen SUBQ SCH ×4 (05:49→21:00)
[2019-08-09 07:28] LABS: BASOPHILS % (AUTO) 0.7 % (0.0-2.0); EOSINOPHILS % (AUTO) 1.1 % (0.0-3.0); HEMOGLOBIN 8.9 G/DL (14.2-18.0); MEAN CORPUSCULAR VOLUME 88 FL (80-99); MONOCYTES % (AUTO) 6.1 % (1.0-10.0); NEUTROPHILS % (AUTO) 82.2 % (45.0-75.0); PLATELET COUNT 408 K/UL (150-450); RED BLOOD COUNT 2.96 M/UL (4.70-6.10); RED CELL DISTRIBUTION WIDTH 11.7 % (11.6-14.8); WHITE BLOOD COUNT 12.8 K/UL (4.8-10.8)
--- NOTE | 2019-08-09 08:00 | NUR ---
NURSE NOTES: Received report from LLUVIA William. Patient was aox2-3 , able to answer simple questions coherently and logicallly and clearly. Patient was eating breakfast with gusto and breathing easily on RA. XR tech in room now to get images. Patient denies pain. Bed in lowest locked position with bajwa draining properly clear yellow. Call chamberlain in reach. cont'd with plan of care.
--- NOTE | 2019-08-09 08:59 | General Progress Note ---
Assessment/Plan Assessment/Plan: sepsis staph bacteremia UTI GIB anemia hypertension CVA pericardial effusion PLAN IV antibiotics add Bactrim Vanco and Rocephin GI clearance cards clearance follow up labs impression, plan, and exam edited and reviewed in detail care discussed with RN Subjective Allergies: Coded Allergies: No Known Allergies (Unverified , 04/01/19) Subjective care noted EGD cancelled Objective Last 24 Hour Vital Signs Date Time Temp Pulse Resp B/P (MAP) Pulse Ox O2 Delivery O2 Flow Rate FiO2 08/09/19 08:00 98.1 78 20 150/83 (105) 98 08/09/19 05:46 140/80 08/09/19 05:45 78 140/80 (100) 08/09/19 04:00 76 08/09/19 04:00 98.6 81 16 136/74 (94) 99 08/09/19 00:00 98.6 77 16 138/72 (94) 98 08/09/19 00:00 77 08/08/19 21:02 141/77 08/08/19 21:00 Room Air 08/08/19 20:00 78 08/08/19 20:00 98.4 80 18 141/77 (98) 96 08/08/19 16:54 179/95 08/08/19 16:00 79 08/08/19 16:00 98.6 77 18 179/95 (123) 98 08/08/19 13:11 164/86 08/08/19 12:00 71 08/08/19 12:00 97.0 75 18 164/86 (112) 98 08/08/19 09:14 72 154/83 08/08/19 09:00 Room Air Intake and Output 08/08/19 08/09/19 19:00 07:00 Intake Total 630 ml Output Total 1350 ml 400 ml Balance -720 ml -400 ml Intake Oral 630 ml Output Urine Total 1350 ml 400 ml # Bowel Movements 1 Laboratory Tests 08/08/19 10:20: Erythrocyte Sedimentation Rate 104H, Sodium Level 136, Potassium Level 4.0, Chloride Level 103, Carbon Dioxide Level 25, Anion Gap 8, Blood Urea Nitrogen 38H, Creatinine 1.7H, Estimat Glomerular Filtration Rate 42.5, Glucose Level 85 , Calcium Level 7.7L, Total Bilirubin 0.4, Aspartate Amino Transf (AST/SGOT) 10L , Alanine Aminotransferase (ALT/SGPT) 14, Alkaline Phosphatase 62, C-Reactive Protein, Quantitative 2.4H, Pro-B-Type Natriuretic Peptide 35702Y, Total Protein 6.1L, Albumin 2.4L, Globulin 3.7, Albumin/Globulin Ratio 0.6L, Thyroid Stimulating Hormone (TSH) 2.365 08/08/19 10:25: White Blood Count 11.9H, Red Blood Count 2.99L, Hemoglobin 8.8L, Hematocrit 26.3L, Mean Corpuscular Volume 88, Mean Corpuscular Hemoglobin 29.6, Mean Corpuscular Hemoglobin Concent 33.6, Red Cell Distribution Width 11.7, Platelet Count 430, Mean Platelet Volume 5.3L, Neutrophils (%) (Auto) 77.1H, Lymphocytes (%) (Auto) 12.1L, Monocytes (%) (Auto) 8.7, Eosinophils (%) (Auto) 1.3, Basophils (%) (Auto) 0.8 08/09/19 06:35: White Blood Count 12.8H, Red Blood Count 2.96L, Hemoglobin 8.9L, Hematocrit 26.0L, Mean Corpuscular Volume 88, Mean Corpuscular Hemoglobin 30.0, Mean Corpuscular Hemoglobin Concent 34.2, Red Cell Distribution Width 11.7, Platelet Count 408, Mean Platelet Volume 5.2L, Neutrophils (%) (Auto) 82.2H, Lymphocytes (%) (Auto) 10.0L, Monocytes (%) (Auto) 6.1, Eosinophils (%) (Auto) 1.1, Basophils (%) (Auto) 0.7, Random Vancomycin Level 15.8 Height (Feet): 5 Height (Inches): 7.00 Weight (Pounds): 142 Objective WDWN NAD clear breath sounds bilaterally without rhonchi or wheeze [id number] without MRG NABS nontender no HSM no CC noted edema focal weakness Wilder Hunter MD Aug 09, 2019 08:59
[2019-08-09] MEDS ORDERED: Bactrim-DS 1 tab ORAL SCH ×2 (09:00→10:00)
--- NOTE | 2019-08-09 09:01 | NUR ---
RADIOLOGY DEPT., CHEST X-RAY DONE.-P.DYE
[2019-08-09] MEDS: Pantoprazole Inj IVP SCH ×2 (09:58→21:46)
[2019-08-09] MEDS: Tamsulosin 0.4mg cap ORAL SCH (09:58)
[2019-08-09] MEDS: Multivitamin w/Minerals tab ORAL SCH (09:58)
[2019-08-09] MEDS ORDERED: Vancomycin 1.5gm/NS Premix IVPB ONE (10:00)
[2019-08-09] MEDS: cefTRIAXone 1 GM in D5W 55 ML IVPB SCH (10:07)
--- NOTE | 2019-08-09 10:43 | Diagnostic Imaging Report ---
Indication: Cough Technique: One view of the chest Comparison: 07/28/2019 Findings: Interim development of infiltrate in the right midlung and left retrocardiac region. There is again demonstrated a small left pleural effusion. The heart size is normal. Impression: New right midlung and left retrocardiac infiltrates, likely pneumonia. Small left pleural effusion again demonstrated
--- NOTE | 2019-08-09 10:44 | NUR ---
CASE MANAGEMENT:REVIEW 08/09/19 SI: UTI; UGI BLEED; BACTEREMIA CT + ANASARCA WITH LG PERICARDIAL EFFUSION AND CLAUDIO PLEURAL EFFUSION; 98.1 78 20 150/83 98% ON RA WBC 12.8; RBC 2.96; H/H 8.9; 26.0; BUN 38; CREA1.7 IS: IV VANCOMYCIN X1 BACTRIM-DS PO BID IV CEFEPIME Q24HR IV CATAPRES Q4/PRN IV PROTONIX PO Q12HR CATAPRES SL Q4/PRN PROSCAR PO QD PROCARDIA PO QD NOVOLOG SQ AC&HS HYDRALAZINE PO Q8HR IV ZOFRAN Q6/PRN FLOMAX PO QD MVIT PO QD : 2E TELE UNIT DCP RETURN TO [facility] WHEN MEDICALLY CLEAR PLAN: EGD
--- NOTE | 2019-08-09 11:14 | NUR ---
*-* INSURANCE *-* ALL AVAILABLE CLINICALS HAVE BEEN FAXED TO: JEROME/BRYAN RODRIGUES CAE MGR ASSIGNED AT THIS TIME. PLEASE FAX THE REVIEW/CLINICAL P- [phone] f- [phone]...REVIEW/CLINICAL Addendum: 08/09/19 at 1122 by JESSI MCINTYRE CM MEGAN SMITH STATED CLINICALS HAVE BEEN RECEIVED
--- NOTE | 2019-08-09 13:14 | NUR ---
DISCHARGE PLANNING DISCHARGE PLAN DISCUSSED WITH DR PHIPPS ORDER GIVEN AND ENTERED TO DISCHARGE BACK TO SNF RN TO CALL DR PHIPPS REGARDING MEDICATION RECONCILIATION
--- NOTE | 2019-08-09 15:13 | NUR ---
DISCHARGE PLANNED: DISCUSSED DISCHARGE AT BEDSIDE WITH PATIENT PATIENT STATES HE IS READY TO RETURN TO FACILITY SPOKE TO [facility] T: [phone] FOR NURSE TO NURSE REPORT F: [phone] ROOM# [address] [facility] TIME FOR 5-5:30PM NO FAMILY LISTED TO MAKE PATIENT AWARE OF RETURN TO FACILITY
--- NOTE | 2019-08-09 18:18 | NUR ---
NURSE NOTES: 4pm BP elevated and followed emar with PRNs. Despite PRN, BP persistently high--called Dr Martínez who gave orders . Converted ambu for dc to will call and will continue to monitor BP . Patient is asymptomatic stated "I feel great" Addendum: 08/09/19 at 1854 by Warren Leyva RN "Call the car" will call for ambu transport to [facility] : call [phone] to arrange for transport when BP controlled.
[2019-08-09] MEDS ORDERED: cloNIDine 0.2mg Tab ORAL SCH (18:30)
--- NOTE | 2019-08-09 18:45 | NUR ---
NURSE NOTES: BP cont'd elevated--clonidine .2 given po tab. will recheck in 30 minutes.
--- NOTE | 2019-08-09 19:51 | NUR ---
NURSE NOTES: BP decreasing now (see flowsheet) and patient continues asymptomatic with no sign of cardiac or respiratory distress.
--- NOTE | 2019-08-09 19:52 | NUR ---
NURSE NOTES: report given to Lavonne. Patient asleep and easily rousable with no sign of cardiac or respiratory distress.
--- NOTE | 2019-08-09 19:54 | NUR ---
NURSE NOTES: Received patient from LLUVIA Saravia , patient in stable condition, resting in bed, AOx3, IV site right FA g22 saline lock, F/c draining to gravity, BP 160/85, will continue to monitor and reassess
--- NOTE | 2019-08-09 20:15 | Progress Note ---
DATE: 08/09/2019 CARDIOLOGY PROGRESS NOTE SUBJECTIVE: The patient remains on IV antimicrobials for Staph aureus bacteremia. He denies any chest pain or shortness of breath. He is able to lie flat without shortness of breath. OBJECTIVE: VITAL SIGNS: Blood pressure range 136/74 to 150/83, heart rate 70, respiratory rate 18 in average, and he is afebrile. LUNGS: There is no Kussmaul sign. LUNGS: Diminished breath sounds. CARDIAC: Regular rhythm and rate. Normal S1, S2 with no rub. EXTREMITIES: No edema. IMPRESSION: 1. Pericardial effusion of no hemodynamic significance at this time. 2. Bacteremia with no echocardiographic evidence of endocarditis at this time. 3. Gastrointestinal bleed resolved. 4. Urinary tract infection. 5. CVA with dysarthria. PLAN: 1. Antimicrobials. 2. Monitor clinical parameters. 3. Serial echocardiogram. 4. No anti-platelet or anticoagulant therapy. 5. We will discuss with GI attending regarding schedule of the endoscopy. 6. The patient is stable from cardiovascular standpoint for procedure. Jeff Black M.D. DR: Ruchi JOB#: [id number] CC:
[2019-08-09] MEDS: Bactrim-DS 1 tab ORAL SCH (21:46)
--- NOTE | 2019-08-09 22:08 | General Progress Note ---
Assessment/Plan Assessment/Plan: Assessment - Recurrent UGIB - resolved - h/o ulcerative GERD - likely cause of current bleed - large pericardial effusion - no hemodynamic effect - anemia Recommendations - no plans for EGD at this time, since stable - cardiology f/u - monitor BP - Follow H&H Subjective Allergies: Coded Allergies: No Known Allergies (Unverified , 04/01/19) Subjective above noted feels OK tolerating po no further GIB Objective Last 24 Hour Vital Signs Date Time Temp Pulse Resp B/P (MAP) Pulse Ox O2 Delivery O2 Flow Rate FiO2 08/09/19 21:52 146/74 08/09/19 21:51 146/74 (98) 08/09/19 20:00 97.9 86 16 161/83 (109) 98 08/09/19 20:00 84 08/09/19 19:41 159/83 (108) 08/09/19 19:10 175/88 (117) 08/09/19 18:44 182/91 08/09/19 18:38 182/91 (121) 08/09/19 18:00 185/95 (125) 08/09/19 17:20 186/95 08/09/19 16:35 189/97 08/09/19 16:30 189/97 (127) 08/09/19 16:00 97.8 81 18 186/96 (126) 98 08/09/19 16:00 80 08/09/19 14:20 159/86 08/09/19 12:00 97.5 73 18 159/86 (110) 100 08/09/19 12:00 73 08/09/19 09:59 78 150/83 08/09/19 09:00 Room Air 08/09/19 08:00 77 08/09/19 08:00 98.1 78 20 150/83 (105) 98 08/09/19 05:46 140/80 08/09/19 05:45 78 140/80 (100) 08/09/19 04:00 76 08/09/19 04:00 98.6 81 16 136/74 (94) 99 08/09/19 00:00 98.6 77 16 138/72 (94) 98 08/09/19 00:00 77 Intake and Output 08/08/19 08/09/19 19:00 07:00 Intake Total 630 ml Output Total 1350 ml 400 ml Balance -720 ml -400 ml Intake Oral 630 ml Output Urine Total 1350 ml 400 ml # Bowel Movements 1 Laboratory Tests 08/09/19 06:35: White Blood Count 12.8H, Red Blood Count 2.96L, Hemoglobin 8.9L, Hematocrit 26.0L, Mean Corpuscular Volume 88, Mean Corpuscular Hemoglobin 30.0, Mean Corpuscular Hemoglobin Concent 34.2, Red Cell Distribution Width 11.7, Platelet Count 408, Mean Platelet Volume 5.2L, Neutrophils (%) (Auto) 82.2H, Lymphocytes (%) (Auto) 10.0L, Monocytes (%) (Auto) 6.1, Eosinophils (%) (Auto) 1.1, Basophils (%) (Auto) 0.7, Random Vancomycin Level 15.8 Height (Feet): 5 Height (Inches): 7.00 Weight (Pounds): 142 Objective WDWN NCAT supple CTA RR Abd Soft ND NT no edema Arlet Rubio MD Aug 09, 2019 22:08
[2019-08-10] VITALS (7 sets, daily range): BP systolic 135–167; BP diastolic 74–91
[2019-08-10] MEDS: HydrALAZINE 50mg tab ORAL SCH ×3 (05:40→23:06)
[2019-08-10] MEDS: NovoLOG Insulin Flexpen SUBQ SCH ×4 (06:30→23:07)
--- NOTE | 2019-08-10 07:35 | NUR ---
NURSE NOTES: Report received from Daniel Bailon RN. Pt. AOx3. In RA. Denies any pain or SOB. R FA20g IV flushed, SL. Plan of care communicated. Bed on lowest position, side rails upx2, brakes engaged. Call light within easy reach.
--- NOTE | 2019-08-10 07:52 | NUR ---
HAND-OFF: Report given to LLUVIA Batista, patient in stable condition, plan of care endorsed.
[2019-08-10] MEDS: Tamsulosin 0.4mg cap ORAL SCH (09:12)
[2019-08-10] MEDS: Bactrim-DS 1 tab ORAL SCH ×2 (09:12→23:06)
[2019-08-10] MEDS: Multivitamin w/Minerals tab ORAL SCH (09:12)
[2019-08-10] MEDS: Pantoprazole Inj IVP SCH ×2 (09:13→21:00)
[2019-08-10] MEDS: cefTRIAXone 1 GM in D5W 55 ML IVPB SCH (09:13)
--- NOTE | 2019-08-10 13:13 | NUR ---
NURSE NOTES: Informed Dr. Hunter, regarding Pt's DC meds. To communicate with Dr. Rowe.
--- NOTE | 2019-08-10 13:30 | NUR ---
NURSE NOTES: Dr. Rowe to put in DC meds.
--- NOTE | 2019-08-10 15:48 | General Progress Note ---
Assessment/Plan Assessment/Plan: Assessment - Recurrent UGIB - resolved - h/o ulcerative GERD - likely cause of current bleed - large pericardial effusion - no hemodynamic effect - anemia Recommendations - can do EGD Monday am if OK from cardiology standpoint - cardiology f/u - monitor BP - Follow H&H Subjective Allergies: Coded Allergies: No Known Allergies (Unverified , 04/01/19) Subjective above noted feels OK tolerating po no further GIB Objective Last 24 Hour Vital Signs Date Time Temp Pulse Resp B/P (MAP) Pulse Ox O2 Delivery O2 Flow Rate FiO2 08/10/19 14:24 135/74 08/10/19 12:00 98.1 73 18 135/74 (94) 98 08/10/19 12:00 72 08/10/19 09:12 74 135/76 08/10/19 09:08 98.9 74 18 135/76 (95) 98 08/10/19 09:00 Room Air 08/10/19 08:00 74 08/10/19 08:00 98.9 74 16 135/76 (95) 98 08/10/19 05:40 159/85 08/10/19 04:00 98.2 76 14 159/85 (109) 97 08/10/19 04:00 76 08/10/19 00:19 162/88 08/10/19 00:14 97.9 79 12 162/88 (112) 96 08/10/19 00:00 81 08/09/19 21:52 146/74 08/09/19 21:51 146/74 (98) 08/09/19 21:00 Room Air 08/09/19 20:00 97.9 86 16 161/83 (109) 98 08/09/19 20:00 84 08/09/19 19:41 159/83 (108) 08/09/19 19:10 175/88 (117) 08/09/19 18:44 182/91 08/09/19 18:38 182/91 (121) 08/09/19 18:00 185/95 (125) 08/09/19 17:20 186/95 08/09/19 16:35 189/97 08/09/19 16:30 189/97 (127) 08/09/19 16:00 97.8 81 18 186/96 (126) 98 08/09/19 16:00 80 Intake and Output 08/09/19 08/10/19 18:59 06:59 Intake Total 472 ml Output Total 1200 ml 800 ml Balance -1200 ml -328 ml Intake Oral 472 ml Output Urine Total 1200 ml 800 ml Height (Feet): 5 Height (Inches): 7.00 Weight (Pounds): 142 Objective WDWN NCAT supple CTA RR Abd Soft ND NT no edema Arlet Rubio MD Aug 10, 2019 15:48
--- NOTE | 2019-08-10 17:08 | Pulmonology Progress Note ---
Assessment/Plan Assessment/Plan Pulmonary Progress Note: HISTORY OF PRESENT ILLNESS: This is a 53-year-old male admitted through the emergency room. The patient was noted to have abdominal pain and coffee-ground emesis. The patient with generalized abdominal pain. Currently with shunting, but overall without significant distress. The patient was admitted for possible GI bleed as well. No new complaints, H+H stable, not for scope PAST MEDICAL HISTORY: Notable for CVA, focal weakness, diabetes, history of benign neoplasm of the adrenal gland. PHYSICAL EXAMINATION: GENERAL: A well-developed male, comfortable. VITAL SIGNS NOTED HEENT: Negative. NECK: Supple. LUNGS: CTAB CARDIAC: S1, S2. Regular rate and rhythm. ABDOMEN: Soft. EXTREMITIES: No edema. NEUROLOGICAL: Focal weakness noted. LABORATORY DATA: All reviewed. IMPRESSION: Leukocytosis, chronic renal failure, possible sepsis, hypertension out of control, anemia RECOMMENDATIONS: Supportive care. Resume medication. IV hydration with caution. IV antibiotics empirically with vancomycin and Zosyn. ID evaluation. Monitor blood pressure and adjust medications. Ptotonix. Follow clinically for further changes and optimize and discharge the patient back to the senior living facility when improved. Subjective ROS Limited/Unobtainable: No Allergies: Coded Allergies: No Known Allergies (Unverified , 04/01/19) Objective Last 24 Hour Vital Signs Date Time Temp Pulse Resp B/P (MAP) Pulse Ox O2 Delivery O2 Flow Rate FiO2 08/10/19 14:24 135/74 08/10/19 12:00 98.1 73 18 135/74 (94) 98 08/10/19 12:00 72 08/10/19 09:12 74 135/76 08/10/19 09:08 98.9 74 18 135/76 (95) 98 08/10/19 09:00 Room Air 08/10/19 08:00 74 08/10/19 08:00 98.9 74 16 135/76 (95) 98 08/10/19 05:40 159/85 08/10/19 04:00 98.2 76 14 159/85 (109) 97 08/10/19 04:00 76 08/10/19 00:19 162/88 08/10/19 00:14 97.9 79 12 162/88 (112) 96 08/10/19 00:00 81 08/09/19 21:52 146/74 08/09/19 21:51 146/74 (98) 08/09/19 21:00 Room Air 08/09/19 20:00 97.9 86 16 161/83 (109) 98 08/09/19 20:00 84 08/09/19 19:41 159/83 (108) 08/09/19 19:10 175/88 (117) 08/09/19 18:44 182/91 08/09/19 18:38 182/91 (121) 08/09/19 18:00 185/95 (125) 08/09/19 17:20 186/95 Intake and Output 08/09/19 08/10/19 18:59 06:59 Intake Total 472 ml Output Total 1200 ml 800 ml Balance -1200 ml -328 ml Intake Oral 472 ml Output Urine Total 1200 ml 800 ml Current Medications Medications (Trade) Dose Ordered Sig/Josh Route PRN Reason Start Time Stop Time Status Last Admin Dose Admin Acetaminophen (Tylenol) 650 mg Q4H PRN ORAL Mild Pain/Temp > 100.5 08/06/19 00:00 09/05/19 00:00 Acetaminophen/ Hydrocodone Bitart ([place] 5/325) 1 tab Q6H PRN ORAL For Pain 08/06/19 00:00 08/13/19 00:00 Al Hydroxide/Mg Hydroxide (Mylanta) 30 ml Q4HR PRN ORAL Constipation 08/06/19 00:00 09/05/19 00:00 Ceftriaxone Sodium 1 gm/ Dextrose 55 ml @ 110 mls/hr Q24H IVPB 08/08/19 10:00 08/15/19 09:59 08/10/19 09:13 Clonidine HCl (Catapres Tab) 0.1 mg Q4H PRN SL For High Blood Pressure 08/06/19 09:30 09/05/19 09:29 08/10/19 00:19 Dextrose (Dextrose 50%) 25 ml Q30M PRN IV Hypoglycemia 08/06/19 05:45 09/05/19 05:44 Dextrose (Dextrose 50%) 50 ml Q30M PRN IV Hypoglycemia 08/06/19 05:45 09/05/19 05:44 Hydralazine HCl (Apresoline) 100 mg Q8HR ORAL 08/06/19 06:00 09/05/19 05:59 08/10/19 14:24 Insulin Aspart (NovoLOG) BEFORE MEALS AND HS SUBQ 08/06/19 06:30 09/05/19 06:29 08/09/19 17:07 Minoxidil (Loniten) 2.5 mg Q4HR PRN ORAL For High Blood Pressure 08/06/19 00:00 09/05/19 00:00 08/09/19 16:35 Multivitamins Therapeutic (Therapeutic Multivitamin) 1 ea DAILY ORAL 08/06/19 09:00 09/05/19 08:59 08/10/19 09:12 Nifedipine (Procardia XL) 60 mg DAILY ORAL 08/06/19 09:00 09/05/19 08:59 08/10/19 09:12 Ondansetron HCl (Zofran) 4 mg Q6H PRN IVP Nausea & Vomiting 08/06/19 05:45 09/05/19 05:44 08/06/19 09:58 Pantoprazole (Protonix) 40 mg EVERY 12 HOURS IVP 08/06/19 16:53 09/05/19 16:52 08/10/19 09:13 Tamsulosin HCl (Flomax) 0.4 mg DAILY ORAL 08/06/19 09:00 09/05/19 08:59 08/10/19 09:12 Trimethoprim/ Sulfamethoxazole (Bactrim-DS) 1 tab Q12HR ORAL 08/09/19 21:00 08/16/19 09:59 08/10/19 09:12 Vancomycin HCl (Vanco rx to dose) 1 ea DAILY PRN MISC Per rx protocol 08/06/19 09:15 09/05/19 09:14 Jeff Rowe MD Aug 10, 2019 17:08
--- NOTE | 2019-08-10 19:05 | NUR ---
NURSE NOTES: Called [facility] [phone]. Gave phone to [facility] transport of . Spoke with Jeff. Transport is [facility]. ETA of 9pm-9:15pm Reservation #: [id number].
--- NOTE | 2019-08-10 20:00 | NUR ---
NURSE NOTES: Report given to mcc RN, Rubio, confirmed to follow up with Dr. Hunter regarding Pt's antibiotic order.
--- NOTE | 2019-08-10 20:10 | NUR ---
HAND-OFF: Report given to LLUVIA Urbano. Pt. in stable condition. BP stable. Plan of care endorsed.
--- NOTE | 2019-08-10 20:15 | NUR ---
NURSE NOTES: Received pt from LLUVIA Batista. Pt is awake and resting in bed, in no acute distress. Iv site intact. Noriega catheter intact and draining. Will continue with plan of care.
--- NOTE | 2019-08-10 22:30 | NUR ---
NURSE NOTES: Transport team has not arrived. Called [facility] transport trying to get an update on the transport team to [facility] patient but no answer, telephone machine stated "unable to answer phone at this time" and ends connection, unable to leave message.
--- NOTE | 2019-08-10 23:00 | NUR ---
NURSE NOTES: Transport team still has not arrived. Called [facility] transport again at trying to get an update on the transport team to [facility] patient but no answer, telephone machine stated "unable to answer phone at this time" and ends connection, unable to leave message. Notified charge nurse. will f/u.
[2019-08-11] VITALS: BP 149/78
--- NOTE | 2019-08-11 00:45 | NUR ---
NURSE NOTES: Transport team still has not arrived. 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 Notified charge nurse.
[2019-08-11 04:00] VITALS: BP 115/72
[2019-08-11] MEDS: NovoLOG Insulin Flexpen SUBQ SCH (06:30)
[2019-08-11] MEDS: HydrALAZINE 50mg tab ORAL SCH (06:54)
--- NOTE | 2019-08-11 07:30 | NUR ---
HAND-OFF: Report given to LLUVIA Nguyen. Endorsed plan of care.
--- NOTE | 2019-08-11 07:39 | NUR ---
NURSE NOTES: Received patient from Aniceto Urbano. Patient is AAOX3-4, able to move all extremities. no complain of pain or discomfort at this time. safety precautions in place. patient verbalizes understanding re: fall preventions. for possible d/c to [facility] today. will follow.
[2019-08-11 08:00] VITALS: BP 158/86
[2019-08-11 08:51] VITALS: BP 158/86
[2019-08-11] MEDS: Multivitamin w/Minerals tab ORAL SCH (08:51)
[2019-08-11] MEDS: Bactrim-DS 1 tab ORAL SCH (08:51)
[2019-08-11] MEDS: Pantoprazole Inj IVP SCH (08:51)
[2019-08-11] MEDS: Tamsulosin 0.4mg cap ORAL SCH (08:51)
--- NOTE | 2019-08-11 09:20 | NUR ---
NURSE NOTES: Patient discharge to [facility]. Report given to Aniceto Ballesteros at facility who stated that they already gotten report yesterday. spoke with Dr. Rowe got order to discharge patient with Noriega catheter. patient was picked up [facility] ambulance company at 9:10 am. patient left no complain of pain or discomfort, VSS. heart monitor removed from patient. Patient has no next of kin listed and confirmed by patient.
--- NOTE | 2019-08-11 15:19 | Pulmonology Progress Note ---
Assessment/Plan Assessment/Plan Pulmonary Progress Note: HISTORY OF PRESENT ILLNESS: This is a 53-year-old male admitted through the emergency room. The patient was noted to have abdominal pain and coffee-ground emesis. The patient with generalized abdominal pain. Currently with shunting, but overall without significant distress. The patient was admitted for possible GI bleed as well. No new complaints, H+H stable, not for scope PAST MEDICAL HISTORY: Notable for CVA, focal weakness, diabetes, history of benign neoplasm of the adrenal gland. PHYSICAL EXAMINATION: GENERAL: A well-developed male, comfortable. VITAL SIGNS NOTED HEENT: Negative. NECK: Supple. LUNGS: CTAB CARDIAC: S1, S2. Regular rate and rhythm. ABDOMEN: Soft. EXTREMITIES: No edema. NEUROLOGICAL: Focal weakness noted. LABORATORY DATA: All reviewed. IMPRESSION: Leukocytosis, chronic renal failure, possible sepsis, hypertension out of control, anemia RECOMMENDATIONS: Supportive care. Resume medication. IV hydration with caution. IV antibiotics empirically with vancomycin and Zosyn. ID evaluation. Monitor blood pressure and adjust medications. Ptotonix. Follow clinically for further changes and optimize and discharge the patient back to the custodial facility when improved. Subjective Allergies: Coded Allergies: No Known Allergies (Unverified , 04/01/19) Objective Last 24 Hour Vital Signs Date Time Temp Pulse Resp B/P (MAP) Pulse Ox O2 Delivery O2 Flow Rate FiO2 08/11/19 08:51 82 158/86 08/11/19 08:00 93 08/11/19 08:00 98.5 82 18 158/86 (110) 97 08/11/19 06:54 157/84 08/11/19 04:00 79 08/11/19 04:00 97.9 79 24 115/72 (86) 98 08/11/19 00:00 98.5 78 18 149/78 (101) 96 08/11/19 00:00 78 08/10/19 23:06 168/93 08/10/19 21:00 Room Air 08/10/19 20:00 98.8 79 18 167/91 (116) 97 08/10/19 20:00 79 08/10/19 16:00 98.2 77 18 162/88 (112) 96 08/10/19 16:00 74 Intake and Output 08/10/19 08/11/19 19:00 07:00 Intake Total 300 ml 800 ml Output Total 900 ml 650 ml Balance -600 ml 150 ml Intake Oral 300 ml 800 ml Output Urine Total 900 ml 650 ml Laboratory Tests 08/11/19 07:43: Random Vancomycin Level 17.9 Jeff Rowe MD Aug 11, 2019 15:19
[2019-08-11] MEDS ORDERED: Vancomycin 1.25gm/NS Premix IVPB ONE (20:00)
--- NOTE | 2019-08-11 21:45 | Progress Note ---
DATE: 08/10/2019 CARDIOLOGY PROGRESS NOTE Late entry for 08/10/2019. SUBJECTIVE: No new bleeding. Denies chest pain or shortness of breath. Able to lie flat. OBJECTIVE: VITAL SIGNS: Blood pressure 167/91, pulse 79, respirations 18. LUNGS: Clear. CARDIAC: Regular. Normal S1, S2 with a fourth heart sound. No rub. ABDOMEN: Soft. No edema. IMPRESSION: 1. Gastrointestinal bleed, resolved. 2. Acute renal failure, recovered. 3. Pericardial effusion of no hemodynamic significance presently. PLAN: 1. Conservative management discussed with Dr. Rubio. 2. Recent esophagogastroduodenoscopy. We will not repeat and no bleeding. 3. He will need outpatient cardiovascular followup with respect to pericardial effusion. Jeff Black M.D. DR: ATILIO JOB#: [id number] CC:
--- NOTE | 2019-08-11 22:00 | Progress Note ---
DATE: 08/11/2019 CARDIOLOGY PROGRESS NOTE SUBJECTIVE: No chest pain or shortness of breath. No new bleeding. Tolerating diet. OBJECTIVE: VITAL SIGNS: Blood pressure 158/86, pulse 82, respirations 18. LUNGS: Clear. CARDIAC: Regular. Normal S1, S2 with no rub. ABDOMEN: Soft. EXTREMITIES: There is no edema. There is no Kussmaul sign. IMPRESSION: 1. Hypertensive heart disease. Elevated blood pressure range. 2. Pericardial effusion. No hemodynamic significance at this time. 3. Acute on chronic diastolic congestive heart failure, responded to therapy. 4. Gastrointestinal bleeding, resolved with no recurrence. PLAN: 1. Outpatient followup. 2. No further interventions planned at this time. 3. He will need serial echocardiogram to evaluate pericardial effusion. 4. Can often advance antihypertensives if continued elevated blood pressure trend. In addition, a diuretic may be considered based on clinical parameters. 5. Outpatient cardiovascular followup offered. Jeff Black M.D. DR: ATILIO JOB#: [id number] CC:
--- NOTE | 2019-08-12 09:17 | Discharge Summary ---
Discharge Summary Discharge Summary _ DATE OF ADMISSION: 08/05/2019 DATE OF DISCHARGE: 08/11/2019 DISCHARGED BY:Dr. Hunter REASON FOR ADMISSION: 53 years old male with past medical history of CVA in 2019, hypertension, diabetes mellitus type 2, benign neoplasm of adrenal gland, presented with after few episodes of coffee-ground emesis Patient reported two days of generalized abdominal pain. Patient was not able to eat. He denied any bloody or black stools. He reported few episodes of coffee-ground emesis. No fever , no chills. Upon evaluation in emergency department vital signs were stable. Laboratory work-up revealed significant leukocytosis with WBC 20.4, hemoglobin 11.1, hematocrit 31.4. Platelet count 505. Stable electrolytes. BUN 44, creatinine 2.9. Glucose 178. Troponin negative. Stable LFT and lipase. Albumin 2.8. Urinalysis revealed +2 protein , +3 leukocyte esterase , many bacteria. Troponin negative. EKG revealed sinus rhythm , no acute ischemic changes. Chest x-ray showed left lung interstitial disease and small left pleural effusion. CT of the abdomen and pelvis revealed no acute intra-abdominal pathology. Findings included anasarca with large pericardial effusion and bilateral pleural effusion, trace ascites,. Bilateral pulmonary parenchymal disease with the reticulonodular opacity in the left ; generalized groundglass opacity. Bladder wall thickening. Prostatomegaly. Evidence of extensive atherosclerosis. Patient received IV Protonix and started on empiric antibiotic for UTI after being pancultured . Patient subsequently admitted for further management. CONSULTANTS: unit clerk Dr. Sofia FORD specialist Dr. Rubio [facility] COURSE: Patient admitted to monitored floor. Patient started on cautious IV hydration and empiric antibiotics. Patient noted to have elevated blood pressure . Antihypertensive regimen was optimized as per unit clerk. Echocardiogram demonstrated preserved ejection fraction 55 to 60% with no evidence of left ventricular hypertrophy. Moderate circumferential pericardial effusion. Pleural effusion. Moderate mitral regurgitation. Moderately elevated left atrial pressure grade 2. Right ventricular systolic pressure of 66 , consistent with severe pulmonary hypertension. Per unit clerk pericardial effusion was of no hemodynamic significance at this time, no need for pericardiocentesis. Echocardiogram revealed no evidence of vegetation. [employer] recommended serial echocardiogram to monitor pericardial effusion. Blood pressure was managed with hydralazine and nifedipine. Clonidine was on board as needed. Blood pressure stabilized ,prior to discharge 135/80. No antiplatelet or anticoagulation restarted at this time , given upper GI bleeding. GI specialist seen and evaluated patient. Per GI specialist, patient had a history of ulcerative GERD , which was likely the cause of current bleeding. Patient was on GI prophylaxis with a PPI, continue the [facility] facility. Antiemetic provided as needed. Patient was able to tolerate diet. No further reported episodes of upper GI bleeding. Hemoglobin and hematocrit were closely monitored with goal to keep hemoglobin above 7. Prior to discharge hemoglobin 8.9 hematocrit 26. Urine culture revealed growth of Providencia and Citrobacter. Blood culture showed micrococci and Staphylococcus coagulase . Antibiotic regimen was optimized based on culture. Blood sugar was managed with sliding scale of insulin. Renal parameters and electrolytes were closely monitored, electrolytes corrected as needed. Creatinine from 2.9 down to 1.7. Patient can have an EGD as outpatient . [employer] cleared for procedure. Patient clinically stabilized and was ready for transfer back to [facility] for continuation of care. Complete antibiotic course as outlined in medication reconciliation list. FINAL DIAGNOSES: Sepsis with Staph bacteremia Recurrent upper GI bleeding -resolved History of ulcerative GERD, likely cause of GI bleeding Hypertensive heart disease Hypertension [id number] Pericardial effusion, not hemodynamically significant UTI CVA with dysarthria Anemia Acute on chronic renal failure DISCHARGE MEDICATIONS: See Medication Reconciliation list. DISCHARGE INSTRUCTIONS: [facility] to the [facility] facility. Plan EGD as outpatient. Follow up with medical doctor at the facility. I have been assigned to dictate discharge summary for this account. I was not involved in the patient's management. Belinda Fowler NP Aug 12, 2019 09:17
--- NOTE | 2019-08-12 11:25 | NUR ---
*-* INSURANCE *-* DISCHARGE SUMMARY HAS BEEN FAXED TO: JEROME/BRYAN NO MGR ASSIGNED AT THIS TIME. PLEASE FAX THE REVIEW/CLINICAL P- [phone] F- [phone]...REVIEW/CLINICAL
== END 2019-08-11 09:10 | DRG 720 ==
LOC: EDBD 18:34 → EMR 19:06 → 2E 19:40 → EDBEDREQ 20:34
DX: A41.2 Sepsis due to unspecified staphylococcus (principal); K92.2 Gastrointestinal hemorrhage, unspecified; I13.0 Hypertensive heart and chronic kidney disease with heart failure and stage 1 through stage 4 chronic kidney disease, or unspecified chronic kidney disease; I50.33 Acute on chronic diastolic (congestive) heart failure; N39.0 Urinary tract infection, site not specified; N18.9 Chronic kidney disease, unspecified; E11.9 Type 2 diabetes mellitus without complications; K21.9 Gastro-esophageal reflux disease without esophagitis; N17.9 Acute kidney failure, unspecified; I69.322 Dysarthria following cerebral infarction; I31.3 Pericardial effusion (noninflammatory); Z79.4 Long term (current) use of insulin; E44.0 Moderate protein-calorie malnutrition; D64.9 Anemia, unspecified; I70.90 Unspecified atherosclerosis
CPT/HCPCS: 36415; 71045; 74018; 74176; 80048; 80053; 80202; 81003; 82962; 83605; 83690; 83880; 84443; 84484; 85007; 85025; 85610; 85651; 85730; 86140; 86850; 86900; 86901; 87040; 87081; 87086; 87181; 93005; 93306; 96365; 96367; 96375; 99291; J1815; J2405